=== PATIENT | female | born 1965 | race Caucasian/White ===

== ENCOUNTER 2017-10-29 09:35 | Emergency (ER) | payer BC, SELFPAY ==
[2017-10-29 09:57] VITALS: BP 135/94; PULSE 72; RESP 18; TEMP 36.4; O2SAT 97; BMI 31.8
--- NOTE | 2017-10-29 10:26 | HMH.EDUTC ---
[facility] [place] Clinical Impression: Migraine Qualifiers: Migraine type: chronic without aura Status migrainosus presence: without status migrainosus Intractability: not intractable Qualified Code(s): G43.709 - Chronic migraine without aura, not intractable, without status migrainosus Disposition: Home, Self-Care Condition on Discharge: Good Instructions: DI for Migraine Additional Instructions: Lots of fluids Go home and rest You had toradol injection in clinic. Similar to ibuprofen, motrin, aleve, naproxen so no additional for 6-8 hours. You had phenergan in clinic for nausea/vomiting. Can cause drowsiness so do not drive, care for small kids or operate machinery today. I understand this is typical but if ANY new, worsening or persistent symptoms then be sure to follow up immediately Referrals: Shannon Soto PA [Primary Care Provider] - (as needed) Time of Disposition: 11:07 Medical Decision Making Vital Signs: 10/29/17 09:57 Temperature 97.6 F Temperature Source Temporal Artery Scan Pulse Rate [Right Radial] 72 Respiratory Rate 18 Blood Pressure [Right Arm] 135/94 Blood Pressure Mean [Right Arm] 107 Blood Pressure Source [Right Arm] Automatic Cuff Blood Pressure Position [Right Arm] Sitting 02 Sat by Pulse Oximetry 97 Oxygen Delivery Method Room Air Orders (Tests/Meds): ED MEDICATIONS Discontinued Medications Generic Name Dose Route Start Last Admin Trade Name Freq PRN Reason Stop Dose Admin Ketorolac Tromethamine 60 mg 10/29/17 10:34 10/29/17 10:40 Toradol 60mg/2ml Vial IM 10/29/17 10:35 60 mg ONCE ONE Administration Promethazine HCl 25 mg 10/29/17 10:34 10/29/17 10:40 Phenergan 25mg/Ml 1ml Vial IM 10/29/17 10:35 25 mg ONCE ONE Administration Sodium Chloride 25 ml 10/29/17 10:34 Sod Chloride 0.9% 25ml Bag IV 10/29/17 10:35 ONCE ONE - John Inquiry Pt receiving controlled substance: No - Reevaluation(s) Time: 11:02 Reevaluation #1: Pain down to 5/10. pt reports she is ready to go home and rest because she typically wakes up headache free. Agrees to follow up for new, worsening or persistent symptoms [facility] UTC HPI - General Stated complaint: Migraine ORELLANA Time Seen by Provider: 10/29/17 10:26 Mode of Arrival: Family Vehicle Source of Information: Patient Limitations: No Limitations Description of Symptoms (Recalled from Triage Doc. by RN): pt states that she woke up at 0600 this am with a migraine and has taken maxalt but vomitted at 0630. pt states that the migraine is the same as usual the pain is on the top of her head with light and sound sensitiviy. HEENT Symptoms (Recalled from RN notes): Yes (migraine) Resp Symptoms (Recalled from RN notes): No Skin Symptoms (Recalled from RN notes): No MS Symptoms (Recalled from RN notes): No Functional Status (Recalled from RN notes): na - History of Present Illness Provider Complaint: Here with spouse c/o a typical migraine requesting toradol and phenergan. migrain started at 0600. Took maxalt Like I would typically do at onset but was vomiting by 0630. Reports vomiting is not atypical. Doesn't think she kept down the maxalt because no improvement. Headache currently 10/10, top of head, described as pressure, photophobia. All typical symptoms per patient. Adamant no new characteristics. Denies weakness, confusion. Reports toradol and phenergan always help. Thinks trigger is current sinusitis. Was seen at clinic yesterday. Dx sinusitis they said related to a virus or allergies . Was suggested that she start decongestants and flonase. I know that will take a few days to help . That feels no worse. No fever. - Related Data Home Medications Medication Instructions Recorded Confirmed alpha lipoic acid 200 mg capsule 200 mg PO DAILY 10/28/17 10/29/17 celecoxib 200 mg capsule 200 mg PO ONCE 10/28/17 10/29/17 cholecalciferol (vitamin D3) 1,000 1,000 unit PO ONCE 10/28/17 10/29/17 unit capsule
--- NOTE | 2017-10-29 10:34 | ED_ITS ---
[facility] [place] Impression: Migraine Qualifiers: Migraine type: chronic without aura Status migrainosus presence: without status migrainosus Intractability: not intractable Qualified Code(s): G43.709 - Chronic migraine without aura, not intractable, without status migrainosus Disposition: Home, Self-Care Condition on Discharge: Good Instructions: DI for Migraine Additional Instructions: Lots of fluids Go home and rest You had toradol injection in clinic. Similar to ibuprofen, motrin, aleve, naproxen so no additional for 6-8 hours. You had phenergan in clinic for nausea/vomiting. Can cause drowsiness so do not drive, care for small kids or operate machinery today. I understand this is typical but if ANY new, worsening or persistent symptoms then be sure to follow up immediately Referrals: Shannon Soto PA [Primary Care Provider] - (as needed) Time of Disposition: 11:07 Medical Decision Making Vital Signs: 10/29/17 09:57 Temperature 97.6 F Temperature Source Temporal Artery Scan Pulse Rate [Right Radial] 72 Respiratory Rate 18 Blood Pressure [Right Arm] 135/94 Blood Pressure Mean [Right Arm] 107 Blood Pressure Source [Right Arm] Automatic Cuff Blood Pressure Position [Right Arm] Sitting 02 Sat by Pulse Oximetry 97 Oxygen Delivery Method Room Air Orders (Tests/Meds): ED MEDICATIONS Discontinued Medications Generic Name Dose Route Start Last Admin Trade Name Freq PRN Reason Stop Dose Admin Ketorolac Tromethamine 60 mg 10/29/17 10:34 10/29/17 10:40 Toradol 60mg/2ml Vial IM 10/29/17 10:35 60 mg ONCE ONE Administration Promethazine HCl 25 mg 10/29/17 10:34 10/29/17 10:40 Phenergan 25mg/Ml 1ml Vial IM 10/29/17 10:35 25 mg ONCE ONE Administration Sodium Chloride 25 ml 10/29/17 10:34 Sod Chloride 0.9% 25ml Bag IV 10/29/17 10:35 ONCE ONE - John Inquiry Pt receiving controlled substance: No - Reevaluation(s) Time: 11:02 Reevaluation #1: Pain down to 5/10. pt reports she is ready to go home and rest because she typically wakes up headache free. Agrees to follow up for new, worsening or persistent symptoms [facility] HPI - General Stated complaint: Migraine ORELLANA Time Seen by Provider: 10/29/17 10:26 Mode of Arrival: Family Vehicle Source of Information: Patient Limitations: No Limitations Description of Symptoms (Recalled from Triage Doc. by RN): pt states that she woke up at 0600 this am with a migraine and has taken maxalt but vomitted at 0630. pt states that the migraine is the same as usual the pain is on the top of her head with light and sound sensitiviy. HEENT Symptoms (Recalled from RN notes): Yes (migraine) Resp Symptoms (Recalled from RN notes): No Skin Symptoms (Recalled from RN notes): No MS Symptoms (Recalled from RN notes): No Functional Status (Recalled from RN notes): na - History of Present Illness Provider Complaint: Here with spouse c/o a typical migraine requesting toradol and phenergan. migrain started at 0600. Took maxalt Like I would typically do at onset but was vomiting by 0630. Reports vomiting is not atypical. Doesn't think she kept down the maxalt because no improvement. Headache currently 10/10, top of head, described as pressure, photophobia. All typical symptoms per patient. Adamant no new characteristics. Denies weakness , confusion. Reports toradol and ph
[2017-10-29 11:09] VITALS: BP 145/77; PULSE 65; RESP 22; TEMP 36.6; O2SAT 99
== END 2017-10-29 11:11 | disposition home or self-care (01) ==
PROVIDERS: Emergency Provider Nurse Practitioner Family; Family Provider Family Medicine; PCP Physician Assistant
DX: G43.709 Chronic migraine without aura, not intractable, without status migrainosus (principal)
CPT/HCPCS: 96372; 99201

== ENCOUNTER 2017-12-05 12:16 | Emergency (ER) | payer BC, SELFPAY ==
--- NOTE | 2017-12-05 12:30 | XR_ITS ---
XR ankle LT 2V Ordering Physician: Lorri Garcia Patient Age: 52 years: Female HISTORY: ITS.REASON: oain when she got out of bed left ankle pain TECHNIQUE: 3 views of the left ankle COMPARISON :07/13/2017 left ankle FINDINGS . No fracture nor dislocation. The ankle mortise intact. Dome of talus intact. No significant new findings versus previous study. Bones well mineralized. IMPRESSION: Negative left ankle. No fracture.
[2017-12-05 12:40] VITALS: BP 127/92; PULSE 68; RESP 24; TEMP 36.6; O2SAT 98; BMI 32.6
--- NOTE | 2017-12-05 12:48 | HMH.EDUTC ---
[facility] – [place] Disposition Clinical Impression: Ankle pain, left Qualifiers: Chronicity: acute Qualified Code(s): M25.572 - Pain in left ankle and joints of left foot Disposition: Home, Self-Care Condition on Discharge: Good Instructions: DI for Acute Pain -- Adult Additional Instructions: Follow-up with primary care this week if no improvement Ice for 20 minutes remove and may repeat Tylenol or ibuprofen as needed for pain Symptoms worsen or do not improve return or be seen in the ER Referrals: Shannon Soto PA [Primary Care Provider] - Time of Disposition: 13:16 Medical Decision Making Vital Signs: 12/05/17 12:40 Temperature 97.9 F Temperature Source Temporal Artery Scan Pulse Rate [Brachial] 68 Respiratory Rate 24 Blood Pressure [Right Arm] 127/92 Blood Pressure Mean [Right Arm] 103 Blood Pressure Position [Right Arm] Sitting 02 Sat by Pulse Oximetry 98 Orders (Tests/Meds): ORDERS Category Date Time Status Ankle XR - Left 2 Views [XR ankle LT 2V] Stat Exams 12/05/17 12:30 Taken - John Inquiry Pt receiving controlled substance: No [facility] [place] HPI - General Chief complaint: PAIN Stated complaint: l ankle pain Time Seen by Provider: 12/05/17 12:48 Mode of Arrival: Ambulatory Source of Information: Patient Limitations: No Limitations Description of Symptoms (Recalled from Triage Doc. by RN): PAIN IN LEFT ANKLE WHEN SHE GOT UP THIS MORNING HEENT Symptoms (Recalled from RN notes): No Resp Symptoms (Recalled from RN notes): No Skin Symptoms (Recalled from RN notes): No MS Symptoms (Recalled from RN notes): Yes Functional Status (Recalled from RN notes): NA - History of Present Illness Provider Complaint: 52-year-old female presents today for left ankle pain. Patient states she woke up day went to the restroom history of neuropathy and unsure if she might have twisted or injured ankle but after getting back to bed and woke up the next day with pain in the ankle. - Related Data Home Medications Medication Instructions Recorded Confirmed alpha lipoic acid 200 mg capsule 200 mg PO DAILY 10/28/17 10/29/17 celecoxib 200 mg capsule 200 mg PO ONCE 10/28/17 10/29/17 cholecalciferol (vitamin D3) 1,000 1,000 unit PO ONCE 10/28/17 10/29/17 unit capsule conjugated estrogens 0.625 mg 0.625 mg PO ONCE 10/28/17 10/29/17 tablet escitalopram 20 mg tablet 20 mg PO ONCE 10/28/17 10/29/17 esomeprazole magnesium 40 mg 40 mg PO ONCE cap 10/28/17 10/29/17 capsule,delayed release gabapentin 600 mg tablet 600 mg PO TID 10/28/17 10/29/17 lisinopril 20 mg tablet 20 mg PO ONCE 10/28/17 10/29/17 ropinirole 0.5 mg tablet 0.5 mg PO TID 10/28/17 10/29/17 vitamin B complex tablet 1 tab PO QAM 10/28/17 10/29/17 Allergies Allergy/AdvReac Type Severity Reaction Status Date / Time Sulfa (Sulfonamide Allergy Mild I-HIVES Verified 10/29/17 10:04 Antibiotics) [SULFA (SULFONAMIDE ANTIBIOTICS)] - Worker's Comp Is this a Worker's Comp case?: No [facility] History I have reviewed the patient's past medical history: Yes Medical History: Reports:: Anxiety, Depression, Gastroesophageal Reflux Disease(GERD), Hypertension, Migraine Denies:: Diabetes Mellitus Type 2 Other Medical History: Reports: Other (Neuropathy, RLS, ) Laterality Cases: Right: Arthroscopy Shoulder, Other Other Surgeries: Yes: Hysterectomy-Partial - Social History Smoking Status: Never smoker Alcohol Intake: never Substance Use Type: denies use - Psychiatric History Expresses thoughts of harming self/others: None Suicide Plan Description: No Plan Pschychiatric History:: Reports:: Anxiety, Depression Family Hx:: Cancer, Heart Attack, Stroke ROS Obtained: Yes All systems reviewed & no additional complaints, Yes Systems reviewed as appropriate & no additional complaints - Constitutional Constitutional: Reports system reviewed and no additional complaints, except as docu, Denies chills, Denies fever(s) - Eyes Eyes: Reports syst
--- NOTE | 2017-12-05 12:51 | ED_ITS ---
[facility] – [place] Clinical Impression: Ankle pain, left Qualifiers: Chronicity: acute Qualified Code(s): M25.572 - Pain in left ankle and joints of left foot Disposition: Home, Self-Care Condition on Discharge: Good Instructions: DI for Acute Pain -- Adult Additional Instructions: Follow-up with primary care this week if no improvement Ice for 20 minutes remove and may repeat Tylenol or ibuprofen as needed for pain Symptoms worsen or do not improve return or be seen in the ER Referrals: Shannon Soto PA [Primary Care Provider] - Time of Disposition: 13:16 Medical Decision Making Vital Signs: 12/05/17 12:40 Temperature 97.9 F Temperature Source Temporal Artery Scan Pulse Rate [Brachial] 68 Respiratory Rate 24 Blood Pressure [Right Arm] 127/92 Blood Pressure Mean [Right Arm] 103 Blood Pressure Position [Right Arm] Sitting 02 Sat by Pulse Oximetry 98 Orders (Tests/Meds): ORDERS Category Date Time Status Ankle XR - Left 2 Views [XR ankle LT 2V] Stat Exams 12/05/17 12:30 Taken - John Inquiry Pt receiving controlled substance: No [facility] [place] HPI - General Chief complaint: PAIN Stated complaint: l ankle pain Time Seen by Provider: 12/05/17 12:48 Mode of Arrival: Ambulatory Source of Information: Patient Limitations: No Limitations Description of Symptoms (Recalled from Triage Doc. by RN): PAIN IN LEFT ANKLE WHEN SHE GOT UP THIS MORNING HEENT Symptoms (Recalled from RN notes): No Resp Symptoms (Recalled from RN notes): No Skin Symptoms (Recalled from RN notes): No MS Symptoms (Recalled from RN notes): Yes Functional Status (Recalled from RN notes): NA - History of Present Illness Provider Complaint: 52-year-old female presents today for left ankle pain. Patient states she woke up day went to the restroom history of neuropathy and unsure if she might have twisted or injured ankle but after getting back to bed and woke up the next day with pain in the ankle. - Related Data Home Medications Medication Instructions Recorded Confirmed alpha lipoic acid 200 mg capsule 200 mg PO DAILY 10/28/17 10/29/17 celecoxib 200 mg capsule 200 mg PO ONCE 10/28/17 10/29/17 cholecalciferol (vitamin D3) 1,000 1,000 unit PO ONCE 10/28/17 10/29/17 unit capsule conjugated estrogens 0.625 mg 0.625 mg PO ONCE 10/28/17 10/29/17 tablet escitalopram 20 mg tablet 20 mg PO ONCE 10/28/17 10/29/17 esomeprazole magnesium 40 mg 40 mg PO ONCE cap 10/28/17 10/29/17 capsule,delayed release gabapentin 600 mg tablet 600 mg PO TID 10/28/17 10/29/17 lisinopril 20 mg tablet 20 mg PO ONCE 10/28/17 10/29/17 ropinirole 0.5 mg tablet 0.5 mg PO TID 10/28/17 10/29/17 vitamin B complex tablet 1 tab PO QAM 10/28/17 10/29/17 Allergies Allergy/AdvReac Type Severity Reaction Status Date / Time Sulfa (Sulfonamide Allergy Mild I-HIVES Verified 10/29/17 10:04 Antibiotics) [SULFA (SULFONAMIDE ANTIBIOTICS)] - Worker's Comp Is this a Worker's Comp case?: No [facility] History I have reviewed the patient's past medical history: Yes Medical History: Reports:: Anxiety, Depression, Gastroesophageal Reflux Disease( GERD), Hypertension, Migraine Denies:: Diabetes Mellitus Type 2 Other Medical History: Reports: Other (Neuropathy, RLS, ) Laterality Cases:
[2017-12-05 13:23] VITALS: BP 127/92; PULSE 68; RESP 24; TEMP 36.6; O2SAT 98
== END 2017-12-05 13:24 | disposition home or self-care (01) ==
PROVIDERS: Emergency Provider Nurse Practitioner Family; Family Provider Family Medicine; PCP Physician Assistant
DX: M25.572 Pain in left ankle and joints of left foot (principal); I10 Essential (primary) hypertension; F41.8 Other specified anxiety disorders; K21.9 Gastro-esophageal reflux disease without esophagitis; Z88.2 Allergy status to sulfonamides
CPT/HCPCS: 73600; 99203

== ENCOUNTER → 2018-03-01 10:37 | Outpatient (CLI) | payer BC, SELFPAY ==
--- NOTE | 2018-03-01 10:43 | XR_ITS ---
EXAM: XR cervical spine 2V HISTORY: ITS.REASON: NECK PAIN ORDERING PHYSICIAN: KEITH Gardner PATIENT AGE: 52 years COMPARISON: None FINDINGS: There is normal alignment. No fracture or dislocation. The disc spaces are well-preserved. No lytic or blastic change. No evidence of cervical rib. IMPRESSION: Negative cervical spine
== END ==
PROVIDERS: PCP Family Medicine; Visit Provider Physician Assistant
DX: M54.2 Cervicalgia (principal)
CPT/HCPCS: 72040

== ENCOUNTER → 2018-07-24 20:59 | Outpatient (CLI) | payer BC, SELFPAY | PROVIDERS: Visit Provider Nurse Practitioner Family ==

== ENCOUNTER → 2018-10-24 13:06 | Outpatient (POV) | payer BC, SELFPAY | PROVIDERS: Visit Provider Dermatology | DX: Z00.00 Encounter for general adult medical examination without abnormal findings (principal) ==

== ENCOUNTER 2019-03-07 02:06 | Observation (INO) | payer BC, SELFPAY ==
[2019-03-07] VITALS (29 sets, daily range): BP systolic 107–170; BP diastolic 62–104; PULSE 64–88; RESP 12–20; TEMP 36.3–43; O2SAT 94–100; BMI 32.5; BMI 31.8
--- NOTE | 2019-03-07 02:12 | HMH.EDGENADL ---
ED Disposition Clinical Impression: Acute cholecystitis Disposition: Admitted as Observation Condition on Discharge: Good Time of Disposition: 03:56 - Critical Care Critical Care Time: No Attestation: On 03/07/19, the high probability of a clinically significant, sudden or life threatening deterioration of the following system(s) required my full and direct attention, intervention and personal management. The time I documented below is in addition to time spent performing reported procedures but includes the following listed in this critical care notation. Medical Decision Making - Medical Records Medical records reviewed: Yes: I reviewed the patient's medical records. - John Inquiry Pt receiving controlled substance: No John was queried for this patient: No Vital Signs: 03/07/19 02:07 03/07/19 04:41 Temperature 97.8 F 98.6 F Temperature Source Oral Pulse Rate 85 Pulse Rate [Right] 76 Respiratory Rate 20 20 Blood Pressure 140/91 H Blood Pressure [Right Arm] 170/104 H Blood Pressure Mean [Right Arm] 126 02 Sat by Pulse Oximetry 96 - Lab Data Lab results reviewed: Yes: I reviewed the patient's lab results. Lab Results 03/07/19 02:14: Sodium 143, Potassium 3.6, Chloride 106, Carbon Dioxide 28, Anion Gap 12.6, BUN 13, Creatinine 0.83, Estimated Creat Clear 122, Estimated GFR 72, Est GFR ( Amer) 87, Glucose 107 H, Calcium 9.0, Total Bilirubin 0.3, Direct Bilirubin 0.1, Indirect Bilirubin 0.2, AST 11 L, ALT 25, Alkaline Phosphatase 69, Troponin I < 0.02, Total Protein 6.8, Albumin 3.4, Amylase 38 03/07/19 02:14: Lipase 121 03/07/19 02:14: WBC 5.9, RBC 4.71, Hgb 12.8, Hct 40.7, MCV 86.4, MCH 27.2, MCHC 31.5 L, RDW 13.2, Plt Count 201, MPV 7.9, Neut % (Auto) 59.0, Lymph % (Auto) 30.8, [place] % (Auto) 6.6, Eos % (Auto) 2.9, Baso % (Auto) 0.6, Neut # (Auto) 3.5, Lymph # (Auto) 1.8, [place] # (Auto) 0.4, Eos # (Auto) 0.2, Baso # (Auto) 0.0 03/07/19 02:14: D-Dimer 285 Result diagrams: 03/07/19 02:14 03/07/19 02:14 Orders (Tests/Meds): ED MEDICATIONS Generic Name Dose Route Start Last Admin Trade Name Freq PRN Reason Stop Dose Admin Gabapentin 600 mg 03/07/19 09:00 Neurontin 600mg Tablet PO 04/06/19 08:59 TID LEATHA Hydromorphone HCl 0.5 mg 03/07/19 04:42 Dilaudid 2mg/Ml Syringe IV 04/06/19 04:41 Q3H PRN Severe Pain Ampicillin Sodium/Sulbactam 100 mls @ 200 mls/hr 03/07/19 10:15 Sodium 3 gm/ Sodium Chloride IV 03/21/19 04:14 Q6H LEATHA Protocol Sodium Chloride 1,000 mls @ 150 mls/hr 03/07/19 04:42 03/07/19 05:35 Sod Chlor 0.9% 1000ml Bag IV 04/06/19 04:41 150 mls/hr .Q6H40M LEATHA Administration Metronidazole 500 mg in 100 mls @ 100 mls/hr 03/07/19 04:45 Flagyl 500mg/100ml Ivpb IV 03/21/19 04:44 Q8H [facility] Protocol Lisinopril 20 mg 03/07/19 04:42 Zestril 20mg Tab PO 04/06/19 04:41 ONCE LEATHA Non-Formulary Medication 20 mg 03/07/19 04:42 Escitalopram Oxalate PO 04/06/19 04:41 ONCE LEATHA Non-Formulary Medication 40 mg 03/07/19 04:42 Esomeprazole Magnesium PO 04/06/19 04:41 ONCE LEATHA Non-Formulary Medication 0.625 mg 03/07/19 04:42 Estrogens, Conjugated [Premarin 0.625mg Tablet] PO 04/06/19 04:41 ONCE LEATHA Non-Formulary Medication 0.5 mg 03/07/19 09:00 Ropinirole Hcl [Requip] PO 04/06/19 08:59 TID LEATHA Ondansetron HCl 4 mg 03/07/19 04:42 Zofran 4mg/2ml Vial IV 04/06/19 04:41 Q8HP PRN Nausea Discontinued Medications Generic Name Dose Route Start Last Admin Trade Name Vijay PRN Reason Stop Dose Admin Aspirin 324 mg 03/07/19 02:14 03/07/19 02:15 Aspirin 81mg Chewable Tablet PO 03/07/19 02:15 324 mg ONCE ONE Administration Famotidine 20 mg 03/07/19 02:13 03/07/19 02:15 Pepcid 20mg/2ml Vial IV 03/07/19 02:14 20 mg ONCE ONE Administration Hydromorphone HCl 0.5 mg 03/07/19 04:27 03/07/19 04:40 Dilaudid 2mg/Ml Syringe IV 03/07/19
--- NOTE | 2019-03-07 02:20 | ED_ITS ---
ED Disposition Clinical Impression: Acute cholecystitis Disposition: Admitted as Observation Condition on Discharge: Good Time of Disposition: 03:56 - Critical Care Critical Care Time: No Attestation: On 03/07/19, the high probability of a clinically significant, sudden or life threatening deterioration of the following system(s) required my full and direct attention, intervention and personal management. The time I documented below is in addition to time spent performing reported procedures but includes the following listed in this critical care notation. Medical Decision Making - Medical Records Medical records reviewed: Yes: I reviewed the patient's medical records. - John Inquiry Pt receiving controlled substance: No John was queried for this patient: No Vital Signs: 03/07/19 02:07 03/07/19 04:41 Temperature 97.8 F 98.6 F Temperature Source Oral Pulse Rate 85 Pulse Rate [Right] 76 Respiratory Rate 20 20 Blood Pressure 140/91 H Blood Pressure [Right Arm] 170/104 H Blood Pressure Mean [Right Arm] 126 02 Sat by Pulse Oximetry 96 - Lab Data Lab results reviewed: Yes: I reviewed the patient's lab results. Lab Results 03/07/19 02:14: Sodium 143, Potassium 3.6, Chloride 106, Carbon Dioxide 28, Anion Gap 12.6, BUN 13, Creatinine 0.83, Estimated Creat Clear 122, Estimated GFR 72, Est GFR ( Amer) 87, Glucose 107 H, Calcium 9.0, Total Bilirubin 0.3, Direct Bilirubin 0.1, Indirect Bilirubin 0.2, AST 11 L, ALT 25, Alkaline Phosphatase 69, Troponin I < 0.02, Total Protein 6.8, Albumin 3.4, Amylase 38 03/07/19 02:14: Lipase 121 03/07/19 02:14: WBC 5.9, RBC 4.71, Hgb 12.8, Hct 40.7, MCV 86.4, MCH 27.2, MCHC 31.5 L, RDW 13.2, Plt Count 201, MPV 7.9, Neut % (Auto) 59.0, Lymph % (Auto) 30.8, [place] % (Auto) 6.6, Eos % (Auto) 2.9, Baso % (Auto) 0.6, Neut # (Auto) 3.5, Lymph # (Auto) 1.8, [place] # (Auto) 0.4, Eos # (Auto) 0.2, Baso # (Auto) 0.0 03/07/19 02:14: D-Dimer 285 Result diagrams: 03/07/19 02:14 03/07/19 02:14 Orders (Tests/Meds): ED MEDICATIONS Generic Name Dose Route Start Last Admin Trade Name Freq PRN Reason Stop Dose Admin Gabapentin 600 mg 03/07/19 09:00 Neurontin 600mg Tablet PO 04/06/19 08:59 TID LEATHA Hydromorphone HCl 0.5 mg 03/07/19 04:42 Dilaudid 2mg/Ml Syringe IV 04/06/19 04:41 Q3H PRN Severe Pain Ampicillin Sodium/Sulbactam 100 mls @ 200 mls/hr 03/07/19 10:15 Sodium 3 gm/ Sodium Chloride IV 03/21/19 04:14 Q6H LEATHA Protocol Sodium Chloride 1,000 mls @ 150 mls/hr 03/07/19 04:42 03/07/19 05:35 Sod Chlor 0.9% 1000ml Bag IV 04/06/19 04:41 150 mls/hr .Q6H40M LEATHA Administration Metronidazole 500 mg in 100 mls @ 100 mls/hr 03/07/19 04:45 Flagyl 500mg/100ml Ivpb IV 03/21/19 04:44 Q8H LEATHA Protocol Lisinopril 20 mg 03/07/19 04:42 Zestril 20mg Tab PO 04/06/19 04:41 ONCE LEATHA Non-Formulary Medication 20 mg 03/07/19 04:42 Escitalopram Oxalate PO 04/06/19 04:41 ONCE LEATHA Non-Formulary Medication 40 mg 03/07/19 04:42 Esomeprazole Magnesium PO 04/06/19 04:41 ONCE LEATHA No
[2019-03-07 02:21] LABS: Basophils % 0.6 % (0.1-2.0); Eosinophils # 0.2 K/mm3 (0.0-0.4); Eosinophils % 2.9 % (0.1-12.0); Hematocrit 40.7 % (37.0-47.0); Hemoglobin 12.8 g/dL (12.2-16.2); Lymphocytes # 1.8 K/mm3 (0.7-4.5); Lymphocytes % 30.8 % (10-50); Mean Corpuscular HGB Conc 31.5 g/dL (31.8-35.4); Mean Corpuscular Hemoglobin 27.2 pg (27.0-31.2); Mean Corpuscular Volume 86.4 fl (81-99); Mean Platelet Volume 7.9 fl (7.4-10.4); Monocytes # 0.4 K/mm3 (0.1-1.0); Monocytes % 6.6 % (1.7-9.3); Neutrophils # 3.5 K/mm3 (1.8-7.8); Platelet Count 201 K/mm3 (142-424); Red Blood Count 4.71 M/mm3 (4.20-5.40); Red Cell Distribution Width 13.2 % (11.5-17.5); White Blood Count 5.9 K/mm3 (4.8-10.8)
[2019-03-07 02:30] LABS: Lipase 121 u/L (73-393)
[2019-03-07 02:35] LABS: Alanine Aminotransferase 25 U/L (12-78); Albumin Level 3.4 gm/dL (3.4-5.0); Alkaline Phosphatase 69 U/L (46-116); Amylase 38 U/L (25-115); Anion Gap 12.6 mEq/L (5-15); Aspartate Amino Transferase 11 U/L (15-37); Bilirubin,Direct 0.1 mg/dL (0.0-0.2); Bilirubin,Indirect 0.2 mg/dL (0.0-0.9); Bilirubin,Total 0.3 mg/dL (0.2-1.0); Blood Urea Nitrogen 13 mg/dL (7-18); Carbon Dioxide 28 mmol/L (21.0-32.0); Chloride 106 mmol/L (98-107); Creatinine Clearance Estimated 122 mL/min (50-200); Creatinine,Serum 0.83 mg/dL (0.55-1.02); Estimated Glomerular Filt Rate 72 ml/min (>60); GFR (African American) 87 ML/MIN (>60); Glucose 107 mg/dL (74-106); Potassium 3.6 mmoL/L (3.5-5.1); Sodium 143 mmol/L (136-145); Total Protein,Serum 6.8 gm/dL (6.4-8.2); Troponin I < 0.02 ng/ml (0.00-0.06)
[2019-03-07 02:45] LABS: D-Dimer 285 ng/mL (0-400)
--- NOTE | 2019-03-07 02:46 | CT_ITS ---
CT chest w con HISTORY: Severe chest pain ITS.REASON: severe R UQ and R chest pain ORDERING PHYSICIAN: Ana Ledesma MD PATIENT AGE: 53 years COMPARISON: None TECHNIQUE: Axial images obtained following the administration of 75 mL of Optiray 350 . Sagittal, and coronal reformatted images are also generated and reviewed. All CT scans at the facility use one or more dose reduction, viz: automated exposure control, ma/kV adjustment per patient size (including targeted exams where dose is matched to indication, i.e. head), or iterative reconstruction technique. FINDINGS: No evidence of aortic aneurysm or dissection. No evidence of pulmonary embolus.. No mediastinal or hilar mass or adenopathy. There is calcified granuloma in the left upper lobe centrally. A noncalcified nodular opacity noted left upper lobe image number 17, 5-mm not readily apparent on the previous exam nonspecific. Additional 4 mm nodule left upper lobe image #24 unchanged. No acute bony anomalies. No lobar consolidation or collapse. No effusion. IMPRESSION: 1. No evidence of pulmonary embolus or aortic aneurysm or dissection. 2. Old granulomatous disease. There is a new 5 mm nodule in the left upper lobe nonspecific. Consider 6 month follow-up.
--- NOTE | 2019-03-07 02:46 | CT_ITS ---
CT abdomen pelvis w con CLINICAL INDICATION: Severe right upper quadrant pain ITS.REASON: severe R UQ and R chest pain ORDERING PHYSICIAN: Ana Ledesma MD PATIENT AGE: 53 years COMPARISON: 12/12/2015 TECHNIQUE: Axial images obtained with sagittal and coronal reformats. All CT scans at the facility use one or more dose reduction, viz: automated exposure control, ma/kV adjustment per patient size (including targeted exams where dose is matched to indication, i.e. head), or iterative reconstruction technique. PROCEDURE: Oral Contrast: None IV Contrast: 75 mL's Optiray 350 performed in conjunction with chest CT. FINDINGS: There is a 6 mm isodensity in the right hepatic lobe posteriorly and medially not significant change in the due to a small cyst. The gallbladder is distended with stranding of the pericholecystic fat suggesting inflammatory change and a small amount of pericholecystic fluid. There may be a stone in the cystic duct measuring 8 mm. Ultrasound suggested for further evaluation. Spleen, adrenal glands, and pancreas have an unremarkable appearance. There are parapelvic renal cyst on both sides. No renal calculi or ureteral calculi. Unremarkable appendix. No intestinal obstruction or free air. No evidence of diverticulitis. Post hysterectomy changes. There is a small right inguinal hernia containing fat and a small umbilical hernia containing fat. No acute bony findings. IMPRESSION: 1. Distended gallbladder with pericholecystic inflammatory changes suggestive of acute cholecystitis. Consider ultrasound for further evaluation 2. Nonacute findings as described above
--- NOTE | 2019-03-07 02:56 | PC.NURSE ---
pt to ct via wheelchair at this time. pt states that her pain is not relieved by earlier medication intervention. see mar.
--- NOTE | 2019-03-07 04:24 | PC.NURSE ---
dr ramos consulting with dr palomo at this time concerning admit
[2019-03-07 05:46] LABS: Basophils # 0.1 K/mm3 (0-0.2); Basophils % 0.9 % (0.1-2.0); Eosinophils # 0.1 K/mm3 (0.0-0.4); Eosinophils % 2.7 % (0.1-12.0); Hemoglobin 12.6 g/dL (12.2-16.2); Lymphocytes # 1.5 K/mm3 (0.7-4.5); Lymphocytes % 29.7 % (10-50); Mean Corpuscular HGB Conc 32.3 g/dL (31.8-35.4); Mean Corpuscular Hemoglobin 27.8 pg (27.0-31.2); Mean Corpuscular Volume 86.1 fl (81-99); Mean Platelet Volume 8.5 fl (7.4-10.4); Monocytes # 0.3 K/mm3 (0.1-1.0); Monocytes % 6.5 % (1.7-9.3); Neutrophils % 60.2 % (37.0-80.0); Platelet Count 177 K/mm3 (142-424); Red Blood Count 4.52 M/mm3 (4.20-5.40); Red Cell Distribution Width 13.2 % (11.5-17.5); White Blood Count 4.9 K/mm3 (4.8-10.8)
[2019-03-07 05:54] LABS: Activated Partial Thrombo Time 30.2 seconds (23.6-34.0); INR 0.96 (0.9-1.1)
[2019-03-07 05:55] LABS: Anion Gap 11.3 mEq/L (5-15); Blood Urea Nitrogen 12 mg/dL (7-18); Calcium 8.8 mg/dL (8.5-10.1); Carbon Dioxide 29 mmol/L (21.0-32.0); Chloride 106 mmol/L (98-107); Creatinine Clearance Estimated 121 mL/min (50-200); Creatinine,Serum 0.82 mg/dL (0.55-1.02); Estimated Glomerular Filt Rate 73 ml/min (>60); GFR (African American) 88 ML/MIN (>60); Glucose 105 mg/dL (74-106); Potassium 4.3 mmoL/L (3.5-5.1); Sodium 142 mmol/L (136-145)
--- NOTE | 2019-03-07 07:26 | PC.NURSE ---
Dr. Miller notified about consult at [id number].
--- NOTE | 2019-03-07 07:48 | HMH.HP ---
*Admission Date: 03/07/19 <Kylie Johnson 03/07/19 08:08> *Chief complaint: Abdominal pain <Kylie Johnson 03/07/19 08:08> *History of present illness: Ms. Early is a 53-year-old female with a history of arthritis, migraine headaches, sleep apnea, and hypertension who presented to [facility] emergency room after experiencing severe abdominal pain in the right upper quadrant and epigastrium. She states that the pain started yesterday after lunch. She ate at [employer] and had chicken tenders. The pain gradually progressed although she completed mowing her lawn. The pain radiated through to her back, into the right chest and down her right arm. She denies nausea, vomiting, diarrhea, fever, and heartburn. She spoke with her daughter who advised her to take some Rolaids which she did. This did not help. She was unable to sleep and got up and sat in chair briefly after which she decided that she needed to come to the emergency room. With evaluation in the emergency room CT of the abdomen revealed a plump gallbladder with surrounding fluid. She was then admitted for further evaluation and treatment with a surgical consult and pain management. Patient states she has been having periodic right upper quadrant discomfort over the last 2 years. She states the pain is usually brief and resolves on its own. Bowels have been moving normally. She notes no hematochezia or melena. This morning pain is better after pain medicine. She has not slept. She remains n.p.o. She continues to deny nausea. She has not voided since admission. <Kylie Johnson 03/07/19 08:20> [facility] History Medical History: Reports:: Anxiety, Depression, Gastroesophageal Reflux Disease(GERD), Hypertension, Migraine Denies:: Cancer, Diabetes Mellitus Type 1, Diabetes Mellitus Type 2, Gastrointestinal Bleed, MRSA, Renal Insufficiency, Ulcer <Johnson,Kylie 03/07/19 08:08> *Have you ever received a pneumonia vaccine?: No <ElizabethKylie 03/07/19 08:08> *Have you received a flu vaccine this season?: No <ElizabethKylei 03/07/19 08:08> Other Medical History: Reports: Arthritis, Hormone Therapy, Hypothyroidism, Thyroid Disease, Other <ElizabethKylie 03/07/19 08:08> Laterality Cases: Right: Arthroscopy Shoulder, Other <ElizabethKylie 03/07/19 08:08> Other Surgeries: Yes: Cardiac Catheterization, Hysterectomy-Partial <Johnson,Kylie 03/07/19 08:08> Amputation: No <Johnson,Kylie 03/07/19 08:08> Fractures: No <ElizabethKylie 03/07/19 08:08> - *Social History Educational Level: Completed College <Kylie Johnson 03/07/19 08:08> Smoking Status: Never smoker <Johnson,Kylei 03/07/19 08:08> Alcohol Intake: never <ElizabethKylie 03/07/19 08:08> Substance Use Type: denies use <ElizabethKylie 03/07/19 08:08> *Occupational Status:: employed <ElizabethKylie 03/07/19 08:08> Housing: house <ElizabethKylie 03/07/19 08:08> Household Members: family <ElizabethKylie 03/07/19 08:08> *Travel in the last 8 weeks: None <ElizabethKylie 03/07/19 08:08> - Psychiatric History Expresses thoughts of harming self/others: None <Kylie Johnson 03/07/19 08:08> Suicide Plan Description: No Plan <ElizabethKylie 03/07/19 08:08> Pschychiatric History:: Reports:: Anxiety, Depression <Kylie Johnson 03/07/19 08:08> Family Hx:: Cancer, Heart Attack, Stroke <Kylie Johnson 03/07/19 08:08> Review of Systems - Constitutional Reports headache(s), Denies body ache(s), Denies fever(s) <Kylie Johnson 03/07/19 08:08> - Eyes Denies change in vision <Kylie Johnson 03/07/19 08:08> - ENT Denies ear pain, Denies neck pain, Denies sore throat <Kylie Johnson 03/07/19 08:08> - *Cardiovascular Denies chest pain, Denies shortness of breath <Kylie Johnson - 03/07/19 08:08> - *Respiratory Denies chest congestion, Denies cough, Denies shortness of breath <Kylie Johnson - 03/07/19 08:08> - *Gastrointestinal Reports abdominal pain, Reports belchi
--- NOTE | 2019-03-07 07:51 | HMH.PHAVTE ---
[facility] Pharmacy VTE Monitoring - Patient Demographics Admission date: 03/06/19 Report Date: 03/07/19 Time: 07:51 Allergies/Adverse Reactions: Patient Allergies Sulfa (Sulfonamide Antibiotics) [SULFA (SULFONAMIDE ANTIBIOTICS)] Allergy (Mild, Verified 01/16/19 00:15) I-HIVES Height: 1.75 m Weight: 98.033 kg Patient Problems: Current Active Problems (Updated 03/07/19 @ 04:04 by Eleazar Faria MD) Acute cholecystitis (Acute) - VTE Risk Labs: VTE Related Lab Results Hgb 12.6 g/dL (12.2-16.2) 03/07/19 05:37 Hct 39.0 % (37.0-47.0) 03/07/19 05:37 Plt Count 177 K/mm3 (142-424) 03/07/19 05:37 PT 10.0 seconds (9.4-11.8) 03/07/19 05:37 INR 0.96 (0.9-1.1) 03/07/19 05:37 APTT 30.2 seconds (23.6-34.0) 03/07/19 05:37 BUN 12 mg/dL (7-18) 03/07/19 05:37 Creatinine 0.82 mg/dL (0.55-1.02) 03/07/19 05:37 Estimated Creat Clear 121 mL/min (50-200) 03/07/19 05:37 Was VTE Risk Assessment Performed: Yes VTE Risk Level: Low Risk Clinical Trial Participant: No - Prophylaxis VTE Prophylaxis Ordered?: Yes Types of VTE Prophylaxis: TEDS Knee High
--- NOTE | 2019-03-07 08:02 | P.HP_ITS ---
*Admission Date: 03/07/19 <Kylie Johnson - 03/07/19 08:08> *Chief complaint: Abdominal pain <Kylie Johnson 03/07/19 08:08> *History of present illness: Ms. Early is a 53-year-old female with a history of arthritis, migraine headaches, sleep apnea, and hypertension who presented to [facility] emergency room after experiencing severe abdominal pain in the right upper quadrant and epigastrium. She states that the pain started yesterday after lunch. She ate at [employer] and had chicken tenders. The pain gradually progressed although she completed mowing her lawn. The pain radiated through to her back, into the right chest and down her right arm. She denies nausea, vomiting, diarrhea, fever, and heartburn. She spoke with her daughter who advised her to take some Rolaids which she did. This did not help. She was unable to sleep and got up and sat in chair briefly after which she decided that she needed to come to the emergency room. With evaluation in the emergency room CT of the abdomen revealed a plump gallbladder with surrounding fluid. She was then admitted for further evaluation and treatment with a surgical consult and pain management. Patient states she has been having periodic right upper quadrant discomfort over the last 2 years. She states the pain is usually brief and resolves on its own. Bowels have been moving normally. She notes no hematochezia or melena. This morning pain is better after pain medicine. She has not slept. She remains n.p.o. She continues to deny nausea. She has not voided since admission. <JohnsonDannielleKylie 03/07/19 08:20> [facility] History Medical History: Reports:: Anxiety, Depression, Gastroesophageal Reflux Disease(GERD), Hypertension, Migraine Denies:: Cancer, Diabetes Mellitus Type 1, Diabetes Mellitus Type 2, Gastroi ntestinal Bleed, MRSA, Renal Insufficiency, Ulcer <ElizabethKylie 03/07/19 08:08> *Have you ever received a pneumonia vaccine?: No <ElizabethKylie 03/07/19 08:08> *Have you received a flu vaccine this season?: No <Kylie Johnson 03/07/19 08:08> Other Medical History: Reports: Arthritis, Hormone Therapy, Hypothyroidism, Thyroid Disease, Other <Kylie Johnson 06/12/19 08:08> Laterality Cases: Right: Arthroscopy Shoulder, Other <Kylie Johnson 03/07/19 08:08> Other Surgeries: Yes: Cardiac Catheterization, Hysterectomy-Partial <Kylie Johnson 03/07/19 08:08> Amputation: No <Kylie Johnson 03/07/19 08:08> Fractures: No <Kylie Johnson 03/07/19 08:08> - *Social History Educational Level: Completed College <Kylie Johnson 03/07/19 08:08> Smoking Status: Never smoker <Kylie Johnson 03/07/19 08:08> Alcohol Intake: never <Kylie Johnson 03/07/19 08:08> Substance Use Type: denies use <Kylie Johnson 03/07/19 08:08> *Occupational Status:: employed <Kylie Johnson 03/07/19 08:08> Housing: house <Kylie Johnson 03/07/19 08:08> Household Members: family <Kylie Johnson 03/07/19 08:08> *Travel in the last 8 weeks: None <Kylie Johnson 03/07/19 08:08> - Psychiatric History Expresses thoughts of harming self/others: None <Kylie Johnson 03/07/19 08:08> Suicide Plan Description: No Plan <Kylie Johnson 03/07/19 08:08> Pschychiatric History:: Reports:: Anxiety, Depression <Kylie Johnson 08:08> Family Hx:: Cancer, Heart Attack, Stroke <Kylie Johnson 03/07/19 08:08> Review of Systems - Constitutional Reports headache(s), Denies body ache(s), Denies fever(s) <Kylie Johnson 03/07/19 08:08> - Eyes Denies change in vision <Kylie Johnson 03/07/19 08:08> - ENT Denies ear pain, Denies neck pain, Denies sore throat <Kylie Johnson
--- NOTE | 2019-03-07 08:14 | US_ITS ---
US gallbladder HISTORY: ITS.REASON: cholecystitis ORDERING PHYSICIAN: Ana Ledesma MD PATIENT AGE: 53 years Comparison: 03/07/1911 FINDINGS: PANCREAS: Unremarkable. No obvious mass or abnormal fluid collection. No ductal dilatation LIVER: No focal liver lesions demonstrated. Homogeneous echogenicity. No intrahepatic biliary ductal dilatation evident RIGHT KIDNEY: Unremarkable. Normal size and echogenicity. No hydronephrosis GALLBLADDER: There are few foci of increased echogenicity without shadowing within the dependent portion of the gallbladder suggesting small nonshadowing stones or tumefactive sludge. Gallbladder wall is slightly thickened at 4 mm. No pericholecystic fluid. Common bile duct is slightly prominent at 7 mm. IMPRESSION: 1. Small nonshadowing stones versus tumefactive sludge within the gallbladder. 2. Mild gallbladder wall thickening. Common bile duct is slightly prominent at 7 mm.
--- NOTE | 2019-03-07 08:16 | HMH.GSCON ---
*Admission Date: 03/07/19 *Reason for consult:: cholecystitis *History of present illness: This is a 53yo female seen in consultation from her PCP after presenting to the ED overnight with increasing epigatric and RUQ pain. No fevers. + radiation to the back and shoulder. No jaundice. No n/v. Review of Systems - Constitutional Denies body ache(s) - Eyes Denies change in vision - ENT Denies change in voice - *Cardiovascular Denies chest pain at rest - *Respiratory Denies cough - *Gastrointestinal Reports abdominal pain, Denies nausea, Denies vomiting - *Genitourinary Denies abnormal vaginal bleeding - *Musculoskeletal Denies abnormal walking - Integumentary/Breasts Denies bleeding lesions - *Neurologic Reports headache(s), Reports tingling/numbness/burning sensations, Reports other (right upper arm,), Denies abnormal walking, Denies localized weakness - Psychiatric Denies anxiety - Endocrine Denies cold intolerance - Hematologic/Lymphatic Denies easy bleeding - Allergic/Immunologic Denies GI upset with certain foods [facility] History Medical History: Reports:: Anxiety, Depression, Gastroesophageal Reflux Disease(GERD), Hypertension, Migraine Denies:: Cancer, Diabetes Mellitus Type 1, Diabetes Mellitus Type 2, Gastrointestinal Bleed, MRSA, Renal Insufficiency, Ulcer *Have you ever received a pneumonia vaccine?: No *Have you received a flu vaccine this season?: No Other Medical History: Reports: Arthritis, Hormone Therapy, Hypothyroidism, Thyroid Disease, Other Laterality Cases: Right: Arthroscopy Shoulder, Other Other Surgeries: Yes: Cardiac Catheterization, Hysterectomy-Partial Amputation: No Fractures: No - *Social History Educational Level: Completed College Smoking Status: Never smoker Alcohol Intake: never Substance Use Type: denies use *Occupational Status:: employed Housing: house Household Members: family *Travel in the last 8 weeks: None - Psychiatric History Expresses thoughts of harming self/others: None Suicide Plan Description: No Plan Pschychiatric History:: Reports:: Anxiety, Depression Family Hx:: Cancer, Heart Attack, Stroke Meds Home Medications Medication Instructions Recorded Confirmed Type celecoxib 200 mg capsule 200 mg PO BID 10/28/17 03/07/19 History cholecalciferol (vitamin D3) 1,000 1,000 unit PO ONCE 10/28/17 03/07/19 History unit capsule conjugated estrogens 0.625 mg 0.625 mg PO DAILYP PRN 10/28/17 03/07/19 History tablet escitalopram 20 mg tablet 20 mg PO ONCE 10/28/17 03/07/19 History esomeprazole magnesium 40 mg 40 mg PO ONCE cap 10/28/17 03/07/19 History capsule,delayed release lisinopril 20 mg tablet 20 mg PO DAILY 10/28/17 03/07/19 History ropinirole 0.5 mg tablet 0.5 mg PO DAILYP PRN 10/28/17 03/07/19 History vitamin B complex tablet 1 tab PO DAILYP PRN 10/28/17 03/07/19 History Acetaminophen [Tylenol Arthritis] 650 mg PO DAILY PRN 03/07/19 03/07/19 History Allergies Allergy/AdvReac Type Severity Reaction Status Date / Time Sulfa (Sulfonamide Allergy Mild I-HIVES Verified 01/16/19 00:15 Antibiotics) [SULFA (SULFONAMIDE ANTIBIOTICS)] Exam Vital signs and Labs for Last 24 Hours: Temp Pulse Resp BP Pulse Ox 98.3 F 67 18 142/95 H 98 03/07/19 07:50 03/07/19 07:50 03/07/19 07:50 03/07/19 07:50 03/07/19 07:50 Laboratory Results - last 24 hr 03/07/19 02:14: Sodium 143, Potassium 3.6, Chloride 106, Carbon Dioxide 28, Anion Gap 12.6, BUN 13, Creatinine 0.83, Estimated Creat Clear 122, Estimated GFR 72, Est GFR ( Amer) 87, Glucose 107 H, Calcium 9.0, Total Bilirubin 0.3, Direct Bilirubin 0.1, Indirect Bilirubin 0.2, AST 11 L, ALT 25, Alkaline Phosphatase 69, Troponin I < 0.02, Total Protein 6.8, Albumin 3.4, Amylase 38 03/07/19 02:14: Lipase 121 03/07/19 02:14: WBC 5.9, RBC 4.71, Hgb 12.8, Hct 40.7, MCV 86.4, MCH 27.2, MCHC 31.5 L, RDW 13.2, Plt Count 201, MPV 7.9, Neut % (Auto) 59.0, Lymph % (Auto) 3
--- NOTE | 2019-03-07 08:19 | P.CONS_ITS ---
*Admission Date: 03/07/19 *Reason for consult:: cholecystitis *History of present illness: This is a 53yo female seen in consultation from her PCP after presenting to the ED overnight with increasing epigatric and RUQ pain. No fevers. + radiation to the back and shoulder. No jaundice. No n/v. Review of Systems - Constitutional Denies body ache(s) - Eyes Denies change in vision - ENT Denies change in voice - *Cardiovascular Denies chest pain at rest - *Respiratory Denies cough - *Gastrointestinal Reports abdominal pain, Denies nausea, Denies vomiting - *Genitourinary Denies abnormal vaginal bleeding - *Musculoskeletal Denies abnormal walking - Integumentary/Breasts Denies bleeding lesions - *Neurologic Reports headache(s), Reports tingling/numbness/burning sensations, Reports other (right upper arm,), Denies abnormal walking, Denies localized weakness - Psychiatric Denies anxiety - Endocrine Denies cold intolerance - Hematologic/Lymphatic Denies easy bleeding - Allergic/Immunologic Denies GI upset with certain foods [facility] History Medical History: Reports:: Anxiety, Depression, Gastroesophageal Reflux Disease(GERD), Hypertension, Migraine Denies:: Cancer, Diabetes Mellitus Type 1, Diabetes Mellitus Type 2, Gastrointestinal Bleed, MRSA, Renal Insufficiency, Ulcer *Have you ever received a pneumonia vaccine?: No *Have you received a flu vaccine this season?: No Other Medical History: Reports: Arthritis, Hormone Therapy, Hypothyroidism, Thyroid Disease, Other Laterality Cases: Right: Arthroscopy Shoulder, Other Other Surgeries: Yes: Cardiac Catheterization, Hysterectomy-Partial Amputation: No Fractures: No - *Social History Educational Level: Completed College Smoking Status: Never smoker Alcohol Intake: never Substance Use Type: denies use *Occupational Status:: employed Housing: house Household Members: family *Travel in the last 8 weeks: None - Psychiatric History Expresses thoughts of harming self/others: None Suicide Plan Description: No Plan Pschychiatric History:: Reports:: Anxiety, Depression Family Hx:: Cancer, Heart Attack, Stroke Meds Home Medications Medication Instructions Recorded Confirmed Type celecoxib 200 mg capsule 200 mg PO BID 10/28/17 03/07/19 History cholecalciferol (vitamin D3) 1,000 1,000 unit PO ONCE 10/28/17 03/07/19 History unit capsule conjugated estrogens 0.625 mg 0.625 mg PO DAILYP PRN 10/28/17 03/07/19 History tablet escitalopram 20 mg tablet 20 mg PO ONCE 10/28/17 03/07/19 History esomeprazole magnesium 40 mg 40 mg PO ONCE cap 10/28/17 03/07/19 History capsule,delayed release lisinopril 20 mg tablet 20 mg PO DAILY 10/28/17 03/07/19 History ropinirole 0.5 mg tablet 0.5 mg PO DAILYP PRN 10/28/17 03/07/19 History vitamin B complex tablet 1 tab PO DAILYP PRN 10/28/17 03/07/19 History Acetaminophen [Tylenol Arthritis] 650 mg PO DAILY PRN 03/07/19 03/07/19 History Allergies Allergy/AdvReac Type Severity Reaction Status Date / Time Sulfa (Sulfonamide Allergy Mild I-HIVES Verified 01/16/19 00:15 Antibiotics) [SULFA (SULFONAMIDE ANTIBIOTICS)] Exam Vital signs and Labs for Last 24 Hours: Temp Pulse Resp BP Pulse Ox
--- NOTE | 2019-03-07 09:18 | HMH.PHAINT ---
MED REC--PATIENT CONSULTED FOR HOME MEDICATIONS. PATIENT INDICATED SHE TAKES ALL MEDICATIONS AT BEDTIME. THIS INCLUDES SYNTHROID AT BEDTIME.
--- NOTE | 2019-03-07 15:09 | P.OP_ITS ---
Date of procedure: 03/07/19 Pre-op Diagnosis:: Acute calculus cholecystitis Post-op Diagnosis:: Same Procedure performed:: Laparoscopic cholecystectomy Surgeon:: Hermilo Miller MD [employer]:: Lv Carrasco Anesthesia: GETTobi Estimated blood loss (mL): 25 Operative findings:: Small stones within gallbladder lumen Moderate gallbladder distention Acute inflammatory response of gallbladder wall/serosa Significant adhesions between gallbladder and omentum Significant adhesions between gallbladder and colon Operative note:: After informed consent was obtained, the patient was taken to the operating room and placed in the supine position. General anesthesia was induced and the abdomen was prepped and draped in a sterile fashion. After infiltration with local anesthetic an infraumbilical incision was made. A Veress needle was placed in position. The abdomen was insufflated. A 5 mm optical trocar was placed in position. Under direct visualization, a 12 mm trocar was placed in the subxiphoid position and 2 additional 5 mm trocars were placed in the right upper quadrant. The gallbladder was elevated up and over the liver margin. Significant inflammatory response noted. Moderate distention of gallbladder noted. The gallbladder was very densely adhered to the omentum and to the colon. The tissue around the cystic duct was carefully dissected. 3 clips were placed proximally and the duct was transected with harmonic lisa. The tissue and the cystic artery was also dissected free. A clip was placed proximally in the artery was transected with harmonic lisa distally. Harmonic lisa were then utilized to dissect the gallbladder away from the liver margin. The gallbladder was placed in a retrieval bag and removed through the subxiphoid trocar site. The right upper quadrant was thoroughly irrigated. No active bleeding or bile leak was noted. Fascia at the subxiphoid trocar site was reapproximated utilizing 0 Ethibond. The remaining trocars were removed. All wounds were irrigated and skin was closed with 4-0 Monocryl in a subcuticular fashion. Steri-Strips were applied. The patient's anesthetic agents were reversed and extubation was completed prior to transfer to recovery in stable condition. Condition: stable Disposition: PACU Specimens:: Gallbladder and contents Complications:: No immediate
--- NOTE | 2019-03-07 15:19 | HMH.ANESCL ---
[facility] Anesthesia Checklist - Patient Identification Patient Identification: Arm Band - Structural Data Admitted From: Home Planned Operative Procedure/s: lap emerald Consent for Planned Operative Procedure(s) Verified: Yes Verified Documents: Surgical Consent, History and Physical - NPO Status Verified Time NPO: 00:00 - Additional verifications Anesthesia Reactions: No - Airway Assessment C-Spine Mobility Assessed: Yes (mp2) TMJ Mobility Assessed: Yes Dentition: Good Dentition - Neurological Assessment Level of Consciousness: Awake, Alert - Anesthesia Plan Anesthesia Risk discussed: Yes Anesthesia Plan: Verified ASA Class: II Anesthesia Type: General [facility] History I have reviewed the patient's past medical history: Yes Medical History: Reports:: Anxiety, Depression, Gastroesophageal Reflux Disease(GERD), Hypertension, Migraine Denies:: Cancer, Diabetes Mellitus Type 1, Diabetes Mellitus Type 2, Gastrointestinal Bleed, MRSA, Renal Insufficiency, Ulcer *Have you ever received a pneumonia vaccine?: No *Have you received a flu vaccine this season?: No Other Medical History: Reports: Arthritis, Hormone Therapy, Hypothyroidism, Thyroid Disease, Other Laterality Cases: Right: Arthroscopy Shoulder, Other Other Surgeries: Yes: Cardiac Catheterization, Hysterectomy-Partial Amputation: No Fractures: No - *Social History Educational Level: Completed College Smoking Status: Never smoker Alcohol Intake: never Substance Use Type: denies use *Occupational Status:: employed Housing: house Household Members: family *Travel in the last 8 weeks: None - Psychiatric History Expresses thoughts of harming self/others: None Suicide Plan Description: No Plan Pschychiatric History:: Reports:: Anxiety, Depression Family Hx:: Cancer, Heart Attack, Stroke
--- NOTE | 2019-03-07 15:20 | HMH.ANESI ---
[facility] Anesthesia Record Part I Intake, IV Amount: 1,500 Estimated blood loss (mL): 10 Urine output (mL): 0 Blood Pressure: 125/71 SaO2: 96 Pulse Rate: 64 Respiratory Rate: 16 Temperature: 97.6 F Patient is:: Drowsy, Stable Stable to PACU at:: 15:10
--- NOTE | 2019-03-07 15:21 | P.PN_ITS ---
[facility] Anesthesia Record Part II Discharge Time: 15:40 Destination: 2nd floor PACU nurse assessment reviewed?: Yes Patient Condition:: Good Anesthesia Complications:: None Swallowing reflex intact?: Yes Cyanosis?: No
--- NOTE | 2019-03-07 16:26 | SUR.PHASEI ---
Pt came to OR with TEDs on and IPCs were then applied over the TEDs.
--- NOTE | 2019-03-07 18:22 | PC.NURSE ---
Patient went down for surgery today at around 1300 and returned to room at 1600. Patient has tolerated well since surgery, rates pain a 5 at this time. Patient was nauseated, zofran was given and was effective. Patient has eaten ice chips and jello since she returned from surgery. 4 dressings are c/d/i. Family is at bedside, call light within reach, will continue to monitor.
--- NOTE | 2019-03-07 22:04 | PC.NURSE ---
S/W Dr. Francis at this time. Pt c/o head-ache and no orders for pain medicine other than Dilaudid, requesting tylenol PO. New order for Tylenol 650mg PO q8-PRN. Also alerted MD that pt did not void until a 15min prior (5hr & 45min post-op). Pt's output was 350ml. Will continue to monitor pt.
[2019-03-08] VITALS: BP 106/64; PULSE 80; RESP 18; TEMP 36.6; O2SAT 92
[2019-03-08 04:00] VITALS: BP 121/77; PULSE 81; RESP 18; TEMP 37; O2SAT 95; BMI 33.0
--- NOTE | 2019-03-08 05:30 | PC.NURSE ---
Addendum entered by Lis Bajwa RN 03/08/19 05:46: Correction: output is 875ml so far this shift. Original Note: Pt is A&Ox4 and has ambulated to the bathroom & in the hallway this shift & tolerates well. Pt has c/o ABD pain 1x and head-ache 2x, medicated per NOV. Pt has denied any nausea this shift and tolerated liquids well, pt refused any snacks available at this time. ABD is soft and tender with palpation, active BS noted all 4 quads, and 4 lap site present on ABD that are al C/D/I. Trace edema to bilat ankles, pt requested to have TEDS removed & refused IPCS at this time. Lungs CTA, sat's 92-95% on room air. Pt teaching with splinting incision sites/ABD with coughing & activity, SE with medications, and s/s of infection. Pt has had an output of 825ml this shift. VSS, call light within reach, will continue to monitor.
--- NOTE | 2019-03-08 06:45 | PC.NURSE ---
Dr. Miller @ pt's bedside at this time
--- NOTE | 2019-03-08 06:50 | HMH.GSPN ---
Subjective Patient reports: feels better Exam Vital signs and Labs for Last 24 Hours: Temp Pulse Resp BP Pulse Ox 98.6 F 81 18 121/77 95 03/08/19 04:00 03/08/19 04:00 03/08/19 04:00 03/08/19 04:00 03/08/19 04:00 I & O for Last 24 hours: Intake & Output 03/05/19 03/06/19 03/07/19 03/08/19 11:59 11:59 11:59 11:59 Intake Total 100 / 100 3623 / 3623 Output Total 875 / 875 Balance 100 / 100 2748 / 2748 Weight 216 lb 2 oz 223 lb 8 oz - Constitutional no acute distress - *Routine Respiratory Exam Absent: respiratory distress - *Routine Abdominal Exam Present: soft Comments: Dressings intact. Dressings dry. No erythema. Progress Note: A&P (1) Acute cholecystitis Status: Acute Assessment and plan: Overall, doing fairly well status post laparoscopic cholecystectomy. Follow-up morning labs Possible discharge home later today with close outpatient follow-up (as per primary provider) Current Visit: Yes
[2019-03-08 06:53] LABS: Basophils % 0.1 % (0.1-2.0); Eosinophils % 0.2 % (0.1-12.0); Hematocrit 36.3 % (37.0-47.0); Hemoglobin 11.8 g/dL (12.2-16.2); Lymphocytes # 0.7 K/mm3 (0.7-4.5); Lymphocytes % 8.4 % (10-50); Mean Corpuscular HGB Conc 32.6 g/dL (31.8-35.4); Mean Corpuscular Hemoglobin 28.4 pg (27.0-31.2); Mean Corpuscular Volume 87.4 fl (81-99); Mean Platelet Volume 8.4 fl (7.4-10.4); Monocytes # 0.5 K/mm3 (0.1-1.0); Monocytes % 5.7 % (1.7-9.3); Neutrophils # 6.9 K/mm3 (1.8-7.8); Neutrophils % 85.7 % (37.0-80.0); Platelet Count 188 K/mm3 (142-424); Red Blood Count 4.15 M/mm3 (4.20-5.40); Red Cell Distribution Width 13.3 % (11.5-17.5)
[2019-03-08 06:55] LABS: MANUAL DIFFERENTIAL MANUAL DIFFERENTIAL (MANUAL DIFF)
--- NOTE | 2019-03-08 07:15 | PC.NURSE ---
REPORT GIVEN TO Tobi WEBB
[2019-03-08 07:19] LABS: Alanine Aminotransferase 36 U/L (12-78); Albumin Level 2.8 gm/dL (3.4-5.0); Albumin/Globulin Ratio 0.9 (1.1-1.8); Alkaline Phosphatase 60 U/L (46-116); Anion Gap 10.8 mEq/L (5-15); Aspartate Amino Transferase 24 U/L (15-37); Bilirubin,Total 0.4 mg/dL (0.2-1.0); Blood Urea Nitrogen 10 mg/dL (7-18); Carbon Dioxide 27 mmol/L (21.0-32.0); Chloride 109 mmol/L (98-107); Creatinine Clearance Estimated 123 mL/min (50-200); Creatinine,Serum 0.84 mg/dL (0.55-1.02); Estimated Glomerular Filt Rate 71 ml/min (>60); GFR (African American) 85 ML/MIN (>60); Glucose 119 mg/dL (74-106); Potassium 4.8 mmoL/L (3.5-5.1); Sodium 142 mmol/L (136-145); Total Protein,Serum 5.8 gm/dL (6.4-8.2)
[2019-03-08 07:27] VITALS: BP 122/78; PULSE 82; RESP 17; TEMP 36.6; O2SAT 98
[2019-03-08 07:39] VITALS: O2SAT 98
--- NOTE | 2019-03-08 08:04 | HMH.ACPN2 ---
<Shannon Soto - Last Filed: 03/08/19 08:04> Internal Medicine - PN: Subj *Date: 03/08/19 *Time: 08:04 Interval history: Patient had a laparoscopic cholecystectomy yesterday and is doing well postop. She states she was able to eat a few bites of eggs this morning. She has not passed gas or had a bowel movement. Her main complaint today is of a headache. She was able to rest last night. Exam Vital signs and Labs for Last 24 Hours: Temp Pulse Resp BP Pulse Ox 97.9 F 82 17 122/78 98 03/08/19 07:27 03/08/19 07:27 03/08/19 07:27 03/08/19 07:27 03/08/19 07:39 Laboratory Results - last 24 hr 03/08/19 06:14: WBC 8.0 D, RBC 4.15 L, Hgb 11.8 L, Hct 36.3 L, MCV 87.4, MCH 28.4, MCHC 32.6, RDW 13.3, Plt Count 188, MPV 8.4, Neut % (Auto) 85.7 H, Lymph % (Auto) 8.4 L, [place] % (Auto) 5.7, Eos % (Auto) 0.2, Baso % (Auto) 0.1, Neut # (Auto) 6.9, Lymph # (Auto) 0.7, [place] # (Auto) 0.5, Eos # (Auto) 0.0, Baso # (Auto) 0.0 03/08/19 06:14: Sodium 142, Potassium 4.8, Chloride 109 H, Carbon Dioxide 27, Anion Gap 10.8, BUN 10, Creatinine 0.84, Estimated Creat Clear 123, Estimated GFR 71, Est GFR ( Amer) 85, Glucose 119 H, Calcium 8.0 L, Total Bilirubin 0.4, AST 24 D, ALT 36 D, Alkaline Phosphatase 60, Total Protein 5.8 L, Albumin 2.8 L D, Globulin 3.0, Albumin/Globulin Ratio 0.9 L I & O for Last 24 hours: Intake & Output 03/05/19 03/06/19 03/07/19 03/08/19 11:59 11:59 11:59 11:59 Intake Total 100 / 100 3983 / 3983 Output Total 875 / 875 Balance 100 / 100 3108 / 3108 Weight 216 lb 2 oz 223 lb 8 oz - Constitutional no acute distress - *Routine Respiratory Exam Present: CTA bilaterally - *Routine Cardiovascular Exam Present: RRR - *Routine Abdominal Exam Present: soft, normoactive bowel sounds, tenderness (around surgical sites) - *Routine Extremities Exam Absent: cyanosis, clubbing, edema Assessment and Plan (1) Acute cholecystitis Status: Acute Category: Medical Code(s): K81.0 - Acute cholecystitis (2) Status post laparoscopic cholecystectomy Status: Acute Category: Surgical Code(s): Z90.49 - Acquired absence of other specified parts of digestive tract (3) History of migraine headaches Status: Chronic Category: Medical Code(s): Z86.69 - Personal history of other diseases of the nervous system and sense organs - Assessment and plan all Dx Assessment and Plan for all problems:: Patient received some Dilaudid for headache and it is slightly better at this time. Her labs look good this morning. May be able to discharge later on today. <Jose Giraldo - Last Filed: 03/09/19 08:35> Internal Medicine - PN: Subj *Date: 03/09/19 *Time: 08:34 Exam Vital signs and Labs for Last 24 Hours: Temp Pulse Resp BP Pulse Ox 98.2 F 83 17 111/70 95 03/08/19 10:54 03/08/19 10:54 03/08/19 10:54 03/08/19 10:54 03/08/19 10:54 Laboratory Results - last 24 hr 03/08/19 06:14: Total Counted 100, Neutrophils % (Manual) 90 H, Band Neutrophils % 2.0, Lymphocytes % (Manual) 4 L, Monocytes % (Manual) 4, Platelet Estimate Normal I & O for Last 24 hours: Intake & Output 03/06/19 03/07/19 03/08/19 03/09/19 11:59 11:59 11:59 11:59 Intake Total 100 / 100 4083 / 4083 360 / 360 Output Total 875 / 875 Balance 100 / 100 3208 / 3208 360 / 360 Weight 216 lb 2 oz 223 lb 8 oz Assessment and Plan (1) Acute cholecystitis Status: Acute Category: Medical Code(s): K81.0 - Acute cholecystitis (2) Status post laparoscopic cholecystectomy Status: Acute Category: Surgical Code(s): Z90.49 - Acquired absence of other specified parts of digestive tract (3) History of migraine headaches Status: Chronic Category: Medical Code(s): Z86.69 - Personal history of other diseases of the nervous system and sense organs - Assessment and plan all Dx Assessment and Plan for all problems:: Patient seen and examined this AM. Will give dose of
--- NOTE | 2019-03-08 08:09 | P.PN_ITS ---
<Shannon Soto - Last Filed: 03/08/19 08:04> Internal Medicine - PN: Subj *Date: 03/08/19 *Time: 08:04 Interval history: Patient had a laparoscopic cholecystectomy yesterday and is doing well postop. She states she was able to eat a few bites of eggs this morning. She has not passed gas or had a bowel movement. Her main complaint today is of a headache. She was able to rest last night. Exam Vital signs and Labs for Last 24 Hours: Temp Pulse Resp BP Pulse Ox 97.9 F 82 17 122/78 98 03/08/19 07:27 03/08/19 07:27 03/08/19 07:27 03/08/19 07:27 03/08/19 07:39 Laboratory Results - last 24 hr 03/08/19 06:14: WBC 8.0 D, RBC 4.15 L, Hgb 11.8 L, Hct 36.3 L, MCV 87.4, MCH 28.4, MCHC 32.6, RDW 13.3, Plt Count 188, MPV 8.4, Neut % (Auto) 85.7 H, Lymph % (Auto) 8.4 L, [place] % (Auto) 5.7, Eos % (Auto) 0.2, Baso % (Auto) 0.1, Neut # (Auto) 6.9, Lymph # (Auto) 0.7, [place] # (Auto) 0.5, Eos # (Auto) 0.0, Baso # (Auto) 0.0 03/08/19 06:14: Sodium 142, Potassium 4.8, Chloride 109 H, Carbon Dioxide 27, An ion Gap 10.8, BUN 10, Creatinine 0.84, Estimated Creat Clear 123, Estimated GFR 71, Est GFR ( Amer) 85, Glucose 119 H, Calcium 8.0 L, Total Bilirubin 0.4, AST 24 D, ALT 36 D, Alkaline Phosphatase 60, Total Protein 5.8 L, Albumin 2.8 L D, Globulin 3.0, Albumin/Globulin Ratio 0.9 L I & O for Last 24 hours: Intake & Output 03/05/19 03/06/19 03/07/19 03/08/19 11:59 11:59 11:59 11:59 Intake Total 100 / 100 3983 / 3983 Output Total 875 / 875 Balance 100 / 100 3108 / 3108 Weight 216 lb 2 oz 223 lb 8 oz - Constitutional no acute distress - *Routine Respiratory Exam Present: CTA bilaterally - *Routine Cardiovascular Exam Present: RRR - *Routine Abdominal Exam Present: soft, normoactive bowel sounds, tenderness (around surgical sites) - *Routine Extremities Exam Absent: cyanosis, clubbing, edema Assessment and Plan (1) Acute cholecystitis Status: Acute Category: Medical Code(s): K81.0 - Acute cholecystitis (2) Status post laparoscopic cholecystectomy Status: Acute Category: Surgical Code(s): Z90.49 - Acquired absence of other specified parts of digestive tract (3) History of migraine headaches Status: Chronic Category: Medical Code(s): Z86.69 - Personal history of other diseases of the nervous system and sense organs - Assessment and plan all Dx Assessment and Plan for all problems:: Patient received some Dilaudid for headache and it is slightly better at this time. Her labs look good this morning. May be able to discharge later on today. <Jose Giraldo - Last Filed: 03/09/19 08:35> Internal Medicine - PN: Subj *Date: 03/09/19 *Time: 08:34 Exam Vital signs and Labs for Last 24 Hours: Temp Pulse Resp BP Pulse Ox 98.2 F 83 17 111/70 95 03/08/19 10:54 03/08/19 10:54 03/08/19 10:54 03/08/19 10:54 03/08/19 10:54 Laboratory Results - last 24 hr 03/08/19 06:14: Total Counted 100, Neutrophils % (Manual) 90 H, Band Neutrophils % 2.0, Lymphocytes % (Manual) 4 L, Monocytes % (Manual) 4, Platelet Estimate Normal I & O for Last 24 hours: Intake & Output 03/06/19 03/07/19 03/08/19 03/09/19 11:59 11
[2019-03-08 10:54] VITALS: BP 111/70; PULSE 83; RESP 17; TEMP 36.8; O2SAT 95
[2019-03-08 13:38] LABS: Lymphocytes % 4 % (10-50); Monocytes % 4 % (2-9); Neutrophils % 90 % (42-76); Total Cells Counted 100
[2019-03-08 13:39] LABS: Platelet Estimate Normal
--- NOTE | 2019-03-08 15:10 | HMH.DCSUM ---
General - General Admission date:: 03/07/19 <Jose Giraldo - 03/11/19 22:38> 03/07/19 <Shannon Soto - 03/08/19 15:30> Discharge date: 03/08/19 <Shannon Soto - 03/08/19 15:30> HPI HPI: Ms. Early is a 53-year-old female with a history of arthritis, migraine headaches, sleep apnea, and hypertension who presented to [facility] emergency room after experiencing severe abdominal pain in the right upper quadrant and epigastrium. She states that the pain started after lunch. She ate at [employer] and had chicken tenders. The pain gradually progressed although she completed mowing her lawn. The pain radiated through to her back, into the right chest and down her right arm. She denies nausea, vomiting, diarrhea, fever, and heartburn. She spoke with her daughter who advised her to take some Rolaids which she did. This did not help. She was unable to sleep and got up and sat in chair briefly after which she decided that she needed to come to the emergency room. With evaluation in the emergency room, CT of the abdomen revealed a plump gallbladder with surrounding fluid. She was then admitted for further evaluation and treatment with a surgical consult and pain management. Patient states she has been having periodic right upper quadrant discomfort over the last 2 years. She states the pain is usually brief and resolves on its own. <Shannon Soto - 03/08/19 15:30> Hospital Course Hospital Course: The patient's abdominal/pelvic CT showed a distended gallbladder with pericholecystic inflammatory changes suggestive of acute cholecystitis. She had a chest CT showing no evidence of PE. There was a new 5 mm nodule on the left upper lobe and radiology recommended a six-month follow-up. Surgery was consulted and she was seen by Dr. Miller. A right upper quadrant ultrasound was ordered. It showed small nonshadowing stones versus tumefactive sludge within the gallbladder along with mild gallbladder wall thickening. The patient was started on IV antibiotics and Dr. Miller performed a laparoscopic cholecystectomy. The patient tolerated the procedure well and was able to tolerate some food. Postop labs were stable. She did develop a headache and was given Dilaudid with slight improvement. She was stable to be discharged home and will follow-up on Tuesday with Dr. Giraldo. <Shannon Soto - 03/08/19 15:50> Objective Vital signs: Temp Pulse Resp BP Pulse Ox 98.2 F 83 17 111/70 95 03/08/19 10:54 03/08/19 10:54 03/08/19 10:54 03/08/19 10:54 03/08/19 10:54 <Jose Giraldo - 03/11/19 22:38> Temp Pulse Resp BP Pulse Ox 98.2 F 83 17 111/70 95 03/08/19 10:54 03/08/19 10:54 03/08/19 10:54 03/08/19 10:54 03/08/19 10:54 <Shannon Soto - 03/08/19 15:30> Narrative: - Constitutional no acute distress - *Routine Respiratory Exam Present: CTA bilaterally - *Routine Cardiovascular Exam Present: RRR - *Routine Abdominal Exam Present: soft, normoactive bowel sounds, tenderness (around surgical sites) - *Routine Extremities Exam Absent: cyanosis, clubbing, edema <Shannon Soto - 03/08/19 15:30> Results Labs on day of discharge: Labs from last 24 hours 03/08/19 03/08/19 06:14 06:14 WBC 8.0 D RBC 4.15 L Hgb 11.8 L Hct 36.3 L MCV 87.4 MCH 28.4 MCHC 32.6 RDW 13.3 Plt Count 188 MPV 8.4 Neut % (Auto) 85.7 H Lymph % (Auto) 8.4 L [place] % (Auto) 5.7 Eos % (Auto) 0.2 Baso % (Auto) 0.1 Neut # (Auto) 6.9 Lymph # (Auto) 0.7 [place] # (Auto) 0.5 Eos # (Auto) 0.0 Baso # (Auto) 0.0 Total Counted 100 Neutrophils % (Manual) 90 H Band Neutrophils % 2.0 Lymphocytes % (Manual) 4 L Monocytes % (Manual) 4 Platelet Estimate Normal Sodium 142 Potassium 4.8 Chloride 109 H Carbon Dioxide 27 Anion Gap 10.8 BUN 10 Creatinine 0.84 Estimated Creat Clear 123 Estimated GFR 71 Est
--- NOTE | 2019-03-08 15:30 | P.DS_ITS ---
General - General Admission date:: 03/07/19 <Jose Giraldo - 03/11/19 22:38> 03/07/19 <Shannon Soto - 03/08/19 15:30> Discharge date: 03/08/19 <BrittanyShannon - 03/08/19 15:30> HPI HPI: Ms. Early is a 53-year-old female with a history of arthritis, migraine headaches, sleep apnea, and hypertension who presented to [facility] emergency room after experiencing severe abdominal pain in the right upper quadrant and epigastrium. She states that the pain started after lunch. She ate at [employer] and had chicken tenders. The pain gradually progressed although she completed mowing her lawn. The pain radiated through to her back, into the right chest and down her right arm. She denies nausea, vomiting, diarrhea, fever, and heartburn. She spoke with her daughter who advised her to take some Rolaids which she did. This did not help. She was unable to sleep and got up and sat in chair briefly after which she decided that she needed to come to the emergency room. With evaluation in the emergency room, CT of the abdomen revealed a plump gallbladder with surrounding fluid. She was then admitted for further evaluation and treatment with a surgical consult and pain management. Patient states she has been having periodic right upper quadrant discomfort over the last 2 years. She states the pain is usually brief and resolves on its own. <Shannon Soto - 03/08/19 15:30> Hospital Course Hospital Course: The patient's abdominal/pelvic CT showed a distended gallbladder with pericholecystic inflammatory changes suggestive of acute cholecystitis. She had a chest CT showing no evidence of PE. There was a new 5 mm nodule on the left upper lobe and radiology recommended a six-month follow-up. Surgery was consulted and she was seen by Dr. Miller. A right upper quadrant ultrasound was ordered. It showed small nonshadowing stones versus tumefactive sludge within t he gallbladder along with mild gallbladder wall thickening. The patient was started on IV antibiotics and Dr. Miller performed a laparoscopic cholecystectomy. The patient tolerated the procedure well and was able to tolerate some food. Postop labs were stable. She did develop a headache and was given Dilaudid with slight improvement. She was stable to be discharged home and will follow-up on Tuesday with Dr. Giraldo. <Shannon Soto - 03/08/19 15:50> Objective Vital signs: Temp Pulse Resp BP Pulse Ox 98.2 F 83 17 111/70 95 03/08/19 10:54 03/08/19 10:54 03/08/19 10:54 03/08/19 10:54 03/08/19 10:54 <Jose Giraldo - 03/11/19 22:38> Temp Pulse Resp BP Pulse Ox 98.2 F 83 17 111/70 95 03/08/19 10:54 03/08/19 10:54 03/08/19 10:54 03/08/19 10:54 03/08/19 10:54 <Shannon Soto - 03/08/19 15:30> Narrative: - Constitutional no acute distress - *Routine Respiratory Exam Present: CTA bilaterally - *Routine Cardiovascular Exam Present: RRR - *Routine Abdominal Exam Present: soft, normoactive bowel sounds, tenderness (around surgical sites) - *Routine Extremities Exam Absent: cyanosis, clubbing, edema <Shannon Soto - 03/08/19 15:30> Results Labs on day of discharge: Labs from last 24 hours 03/08/19 03/08/19 06:14 06:14 WBC 8.0 D RBC 4.15 L Hgb 11.8 L Hct 36.3 L MCV 87.4
== END 2019-03-08 14:02 | disposition home or self-care (01) ==
LOC: ER 04:04 → 2ND 04:32
PROVIDERS: Surgery; Admitting Provider Family Medicine; Emergency Provider Emergency Medicine; PCP Family Medicine; Visit Provider Family Medicine
PROC: 0FT44ZZ Resection of Gallbladder, Percutaneous Endoscopic Approach (ICD-10-PCS; CPT 47562; principal; 2019-03-07 13:30)
DX: K80.00 Calculus of gallbladder with acute cholecystitis without obstruction (principal); K81.0 Acute cholecystitis; K82.8 Other specified diseases of gallbladder; I10 Essential (primary) hypertension; E03.9 Hypothyroidism, unspecified; Z88.2 Allergy status to sulfonamides; Z79.890 Hormone replacement therapy; Z79.899 Other long term (current) drug therapy
CPT/HCPCS: 47562; 36415; 71260; 74177; 76705; 80048; 80053; 80076; 82150; 83690; 84484; 85007; 85025; 85378; 85610; 85730; 93005; 96365; 96367; 96374; 96375; 99284; G0378; J1335; J2405; J2710; Q9967

== ENCOUNTER → 2019-03-14 13:24 | Outpatient (CLI) | payer BC, SELFPAY ==
[2019-03-14 14:58] LABS: Amylase 36 U/L (25-115); Lipase 105 u/L (73-393)
== END ==
PROVIDERS: Visit Provider Surgery
DX: K85.90 Acute pancreatitis without necrosis or infection, unspecified (principal)
CPT/HCPCS: 36415; 82150; 83690

== ENCOUNTER → 2019-11-28 09:16 | Outpatient (CLI) | payer BC, SELFPAY ==
--- NOTE | 2019-11-28 09:20 | MM_ITS ---
PROCEDURE: MM DIG SCREENING MAMM BI W/CAD CLINICAL INDICATION: SCREENING There is a history of breast cancer patient's mother diagnosed after menopause. There has been a previous cyst aspiration right breast. COMPARISON: DIGITAL MAMM-SCREEN BILATE from 02/01/2012 DMSB DIG MAMM-SCREEN ALIZA from 04/13/2013 DMSB DIG MAMM-SCREEN ALIZA from 04/02/2016 TECHNIQUE: Standard CC and MLO images and 3D Tomosynthesis was obtained. R2 CAD reviewed. FINDINGS: Mild scattered fibroglandular densities are seen throughout both breast. Dom images reveal a possible developing asymmetric density approximately 4 cm deep to the nipple left breast. This is best seen on the MLO Rasheed views, appearing somewhat less worrisome on the CC Rasheed views. However I would recommend the patient return for spot compression views and ultrasound for additional evaluation. There is no suspicious microcalcifications in either breast. IMPRESSION: Fibrofatty parenchyma with possible developing asymmetric density left breast BI-RAD Category: 0 Need Additional Imaging Evaluation FOLLOW-UP: IMM Immediate Follow-up Recommended (A letter has been sent to the patient regarding results of the study.) Dictated by: Dr. Gerard Godwin MD 11/29/2019 10:[address] Gerard Godwin MD in [place] 11/29/2019 10:51
== END ==
PROVIDERS: PCP Psychiatry & Neurology Sleep Medicine; Visit Provider Family Medicine
DX: Z12.31 Encounter for screening mammogram for malignant neoplasm of breast (principal)
CPT/HCPCS: 77063; 77067

== ENCOUNTER → 2019-12-11 14:33 | Outpatient (CLI) | payer BC, SELFPAY ==
--- NOTE | 2019-12-11 14:37 | US_ITS ---
PROCEDURE: MM DIG MAMM DX UNILAT LT CAD Digital Breast Tomosynthesis Included CLINICAL INDICATION: ABNORMAL MAMM Follow-up asymmetric density COMPARISON: DMSB DIG MAMM-SCREEN ALIZA from 04/13/2013 DMSB DIG MAMM-SCREEN ALIZA from 04/02/2016 MM DIG SCREENING MAMM BI W/CAD from 11/28/2019 TECHNIQUE: Spot-compression views are performed along with left breast ultrasound FINDINGS: The area of asymmetric density in the retroareolar region on the left appear to compress out is fibroglandular tissue. No malignant appearing mass or malignant-appearing microcalcification. Left breast ultrasound: There is a small cyst at 4 o'clock at 3 mm by 3 mm and a complicated cyst at 1 o'clock at 3 x 5 mm which could even account for the radiographic abnormality. IMPRESSION: No convincing evidence of malignancy. BI-RAD Category: 3 Probably Benign Finding Short Term Follow-up FOLLOW-UP: 6M 6Month Follow-up (A letter has been sent to the patient regarding results of the study.) Dictated by: Jose G Whyte MD 12/11/2019 15:41 Electronically signed by Jose G Whyte MD in [place] 12/11/2019 15:41
== END ==
PROVIDERS: PCP Family Medicine; Visit Provider Family Medicine
DX: R92.8 Other abnormal and inconclusive findings on diagnostic imaging of breast (principal)
CPT/HCPCS: 76641; 77061; 77065; G0279

== ENCOUNTER → 2020-02-11 10:10 | Outpatient (CLI) | payer BC, SELFPAY | PROVIDERS: PCP Family Medicine; Visit Provider Family Medicine | DX: R00.2 Palpitations (principal) | CPT/HCPCS: 93225; 93226 ==

== ENCOUNTER → 2020-06-16 13:50 | Outpatient (CLI) | payer BC, SELFPAY ==
--- NOTE | 2020-06-16 | US_ITS ---
PROCEDURE: MM DIG MAMM DX UNILAT LT CAD Digital Breast Tomosynthesis Included CLINICAL INDICATION: 6 MO FOLLOW UP COMPARISON: MG DMSB DIG MAMM-SCREEN ALIZA from 04/02/2016 MG MM DIG SCREENING MAMM BI W/CAD from 11/28/2019 MG MM DIG MAMM DX UNILAT LT CAD from 12/11/2019 US US BREAST LT COMPLETE from 12/11/2019 US US BREAST LT COMPLETE from 06/16/2020 TECHNIQUE: Left mammogram with spot compression views 3D tomography and left breast ultrasound FINDINGS: Average fibroglandular tissue. Asymmetry noted in the retroareolar region of the junction of the anterior mid 3rd of the left breast slightly less apparent compared to the previous exam. Left breast ultrasound: 4 mm cyst at 1 o'clock, 6 x 3 mm complex nodule at 1 o'clock and may represent a complex cyst or fibrocystic change which appears stable. No suspicious nodules are evident. There is a 3 mm cyst at 4 o'clock IMPRESSION: No significant change. No convincing evidence of malignancy. Recommend return to screening November 2020 BI-RAD Category: 2 Benign Finding(s) FOLLOW-UP: 6M 6Month Follow-up (A letter has been sent to the patient regarding results of the study.) Dictated by: Jose G Whyte MD 06/23/2020 10:55 Jose G Whyte MD in [place] 06/23/2020 10:55
== END ==
PROVIDERS: PCP Family Medicine; Visit Provider Family Medicine
DX: R92.8 Other abnormal and inconclusive findings on diagnostic imaging of breast (principal)
CPT/HCPCS: 76641; 77061; 77065; G0279

== ENCOUNTER → 2020-06-23 13:21 | Outpatient (POV) | payer BC, SELFPAY | PROVIDERS: Visit Provider Nurse Practitioner Family | DX: Z00.00 Encounter for general adult medical examination without abnormal findings (principal) ==

== ENCOUNTER → 2020-06-25 15:58 | Outpatient (CLI) | payer BC, SELFPAY ==
[2020-06-25 17:04] LABS: Coronavirus 19 IgG Antibody Negative (Negative); Coronavirus 19 IgM Antibody Negative (Negative)
== END ==
PROVIDERS: Visit Provider Internal Medicine Gastroenterology
DX: Z01.89 Encounter for other specified special examinations (principal); Z13.810 Encounter for screening for upper gastrointestinal disorder
CPT/HCPCS: 36415; 86328

== ENCOUNTER 2020-06-27 07:09 | Day surgery (SDC) | payer BC, SELFPAY ==
[2020-06-25 15:33] VITALS: BMI 32.5
[2020-06-27] VITALS (7 sets, daily range): BP systolic 90–142; BP diastolic 57–91; PULSE 61–76; RESP 16–20; TEMP 36.6; O2SAT 95–100
--- NOTE | 2020-06-27 07:33 | SUR.PREOP ---
0725-pt in [place] doing fleets enema.
--- NOTE | 2020-06-27 08:07 | P.PCN_ITS ---
[facility] Procedure Note Procedure Note:: Upper Endoscopy Procedure Report: Esophagogastroduodenoscopy with cold biopsies and TTS balloon dilation Endoscopost: Miguel Angel Patrick II, MD Referring Physician: Dash Walton MD Date of Procedure: June 27, 2020 Equipment: Olympus GIF 180 standard upper endoscope Sedation: MAC sedation Indications: Mrs. Early is a 55-year-old female with a history of functional dyspepsia, GERD and dysphagia. The patient does report epigastric abdominal discomfort, bloating, belching, nausea and early satiety. She will have dysphagia and regurgitation. She did have an EGD with me in October 2016 and had some cricopharyngeal spasm. She does take omeprazole and [id number] Nexium. She also takes Celebrex, Advil and occasional ibuprofen. She reports regular bowel function. She has no globus sensation. Procedure: Prior to the procedure, a history and physical exam was performed, and patient's medications and allergies were reviewed. The risks, benefits and alternatives of the sedation and procedure were discussed with the patient. All questions were answered and informed consent was obtained. The patient was brought to the procedure room. Patient identification and proposed procedure were verified by the physician and the nurse. The patient was placed in a left lateral decubitus position and the scope was passed under direct vision. Throughout the procedure, the patient's blood pressure, pulse, and oxygen saturations were monitored continuously. The upper GI endoscopy was accomplished without difficulty. The patient tolerated the procedure well. Findings: The scope was passed directly into the upper esophagus and advanced to the third portion of the duodenum. The post bulbar duodenum and duodenal bulb were normal with normal mucosa and conniventes. The scope was withdrawn through a normal duodenal bulb and pylorus into the stomach. There was moderate bile reflux with linear erosive gastropathy of the antrum consistent with reactive gastropathy. There were a few small gastric fundic gland polyps. The remainder of the antrum, body and fundus of the stomach were grossly normal. Upon retroflexion there was no hiatal hernia. Biopsies were taken from the gastric antrum to rule out reactive gastropathy. 1 of the gastric fundic polyps was removed via cold biopsy. The scope was then withdrawn into the esophagus. There was no evidence of reflux esophagitis or Solis's. There was no Schatzki's ring. There were tertiary contractions and evidence of moderate esophageal dysmotility. The entire esophagus was dilated to 60 [place]/20 mm with a TTS hydrostatic balloon. There was some resistance at the cricopharyngeus. The remainder of the esophageal mucosa was normal. Impression: 1. Cricopharyngeal spasm status post dilation to 20 mm 2. Nonerosive GERD with moderate esophageal dysmotility 3. Bile reflux with linear erosive reactive gastropathy Plan: I will follow-up the biopsies and I will discuss the findings with the patient and family. I would recommend dietary measures, fiber bowel regimen, promotility therapy and/or treatment for visceral sensitivity. The patient does have functional dyspepsia and functional GERD with esophageal dyskinesia. We will discuss these treatment options. I will proceed with colonoscopy.
--- NOTE | 2020-06-27 08:12 | HMH.ANESCL ---
[facility] Anesthesia Checklist - Patient Identification Patient Identification: Arm Band, Verbal (Name & ) - Structural Data Admitted From: Home Planned Operative Procedure/s: EGD/Colonoscopy Consent for Planned Operative Procedure(s) Verified: Yes Verified Documents: Surgical Consent, History and Physical - NPO Status Verified Time NPO: 00:00 - Chart Verification Results Verified: None - Additional verifications Anesthesia Reactions: No - Airway Assessment C-Spine Mobility Assessed: Yes TMJ Mobility Assessed: Yes Dentition: Good Dentition (Missing teeth) - Neurological Assessment Level of Consciousness: Awake, Alert, Appropriate, Follows Commands Hx Seizures: No Numbness or tingling in extremities: No - Anesthesia Plan Anesthesia Risk discussed: Yes Anesthesia Plan: Verified ASA Class: III Anesthesia Type: MAC [facility] History I have reviewed the patient's past medical history: Yes Medical History: Reports:: Anxiety, Depression, Gastroesophageal Reflux Disease(GERD), Hypertension, Migraine Denies:: Cancer, Diabetes Mellitus Type 1, Diabetes Mellitus Type 2, Gastrointestinal Bleed, Internal Pacemaker, MRSA, Renal Insufficiency, Seizures, Ulcer *Have you ever received a pneumonia vaccine?: No *Have you received a flu vaccine this season?: No Other Medical History: Reports: Arthritis, Hormone Therapy, Hypothyroidism, Thyroid Disease, Other Comment:: Obesity, [place] Anesthesia experience/problems:: None Laterality Cases: Right: Arthroscopy Shoulder, Other Other Surgeries: Yes: Cardiac Catheterization, Cholecystectomy, Colonoscopy, EGD, Hysterectomy-Partial. No: Pacemaker Amputation: No Fractures: No - *Social History Last grade of school completed: Advanced degree Smoking Status: Never smoker Alcohol Intake: never Substance Use Type: denies use *Occupational Status:: employed Housing: house Household Members: family *Travel in the last 8 weeks: None - Psychiatric History Pschychiatric History:: Reports:: Anxiety, Depression Family Hx:: Cancer, Heart Attack, Stroke
--- NOTE | 2020-06-27 08:34 | HMH.PROC ---
[facility] Procedure Note Procedure Note:: Colonoscopy Procedure Report: Colonoscopy Endoscopist: Miguel Angel Patrick II, MD Referring physician: Dash Walton MD Date of Procedure: June 27, 2020 Equipment: Olympus 180 variable stiffness pediatric colonoscope Sedation: MAC sedation Indication: Mrs. Early is a 55-year-old female who is here for screening/surveillance colonoscopy secondary to a previously poorly prepped colonoscopy. The patient did have a colonoscopy in October 2016 and had a cecal polyp (5 to 6 mm serrated adenoma) removed. Given the fact that the preparation was poor, she was scheduled for repeat surveillance. She reports no rectal bleeding, weight loss, change in her bowel habits or family history of colon cancer. Procedure: Prior to the procedure, a history and physical exam was performed, and patient's medications and allergies were reviewed. The risks, benefits and alternatives of the sedation and procedure were discussed with the patient. All questions were answered and informed consent was obtained. The patient was brought to the procedure room. Patient identification and proposed procedure were verified by the physician and the nurse. The patient was placed in a left lateral decubitus position and the scope was passed under direct vision. Throughout the procedure, the patient's blood pressure, pulse, and oxygen saturations were monitored continuously. The colonoscopy was accomplished without difficulty. The patient tolerated the procedure well. Findings: On digital rectal examination there was normal rectal tone. There were no external hemorrhoids. The colonoscope was introduced through the anal canal to the rectum and advanced to the cecum. The ileocecal valve and appendiceal orifice were identified. The scope was advanced a short distance into the ileum which appeared grossly normal. The scope was then withdrawn into the colon. The cecum, ascending, transverse, descending, sigmoid and rectum were grossly normal. There were no mucosal abnormalities identified. Upon retroflexion within the rectum there were grade 1 internal hemorrhoids.The preparation was good throughout with [place] Preparation Score of 8 out of 9. The cecal time was 10 minutes. Impression: 1. Normal colonoscopy with intubation of the terminal ileum Plan: The patient will not require screening/surveillance colonoscopy again for 10 years by ACS guidelines. I would encourage fiber bulk supplementation on a long-term daily maintenance basis.
== END 2020-06-27 09:28 | disposition home or self-care (01) ==
LOC: OUTP 07:10
PROVIDERS: PCP Family Medicine; Visit Provider Internal Medicine Gastroenterology
PROC: 0DJ08ZZ Inspection of Upper Intestinal Tract, Via Natural or Artificial Opening Endoscopic (ICD-10-PCS; CPT 43235; principal; 2020-06-27 08:00)
DX: Z12.11 Encounter for screening for malignant neoplasm of colon (principal); Z86.010 Personal history of colon polyps; J39.2 Other diseases of pharynx; K21.9 Gastro-esophageal reflux disease without esophagitis; K22.4 Dyskinesia of esophagus; K31.9 Disease of stomach and duodenum, unspecified; I10 Essential (primary) hypertension; M19.90 Unspecified osteoarthritis, unspecified site; E03.9 Hypothyroidism, unspecified; G47.33 Obstructive sleep apnea (adult) (pediatric); E66.9 Obesity, unspecified; F41.9 Anxiety disorder, unspecified; F32.9 Major depressive disorder, single episode, unspecified
CPT/HCPCS: 43239; 43249; 45378; C1726

== ENCOUNTER → 2020-11-28 13:34 | Outpatient (CLI) | payer BC, SELFPAY ==
--- NOTE | 2020-11-28 13:36 | MM_ITS ---
PROCEDURE: MM DIG SCREENING MAMM BI W/CAD Digital Breast Tomosynthesis Included CLINICAL INDICATION: SCREENING There is a history of breast cancer in the patient's mother diagnosed after menopause and the patient's sister diagnosed after menopause as well. There has been a previous cyst aspiration right breast for benign findings. densities are seen throughout both breast and the findings are bilateral and symmetrical. COMPARISON: MG MM DIG SCREENING MAMM BI W/CAD from 11/28/2019 MG MM DIG MAMM DX UNILAT LT CAD from 12/11/2019 MG MM DIG MAMM DX UNILAT LT CAD from 06/16/2020 TECHNIQUE: Standard CC and MLO images and 3D Tomosynthesis was obtained. R2 CAD reviewed. FINDINGS: Mild scattered fibroglandular densities are seen in both breast and the findings are bilateral and symmetrical. There are no CAD markings. There is no suspicious lesion and no suspicious microcalcifications. IMPRESSION: Fibrofatty parenchyma with no suspicious lesions seen BI-RAD Category: 1 Negative FOLLOW-UP: 1YR 1 Year Follow-up (A letter has been sent to the patient regarding results of the study.) Dictated by: Dr. Gerard Godwin MD 12/06/2020 08:27 Dr. Gerard Godwin MD in [place] 12/06/2020 08:27
== END ==
PROVIDERS: PCP Family Medicine; Visit Provider Family Medicine
DX: Z12.31 Encounter for screening mammogram for malignant neoplasm of breast (principal)
CPT/HCPCS: 77063; 77067

== ENCOUNTER → 2021-03-09 09:53 | Outpatient (CLI) | payer BC, SELFPAY ==
[2021-03-09 12:09] LABS: Alanine Aminotransferase 14 U/L (12-78); Albumin Level 3.9 g/dl (3.5-5.0); Albumin/Globulin Ratio 1.6 (1.1-1.8); Alkaline Phosphatase 66 U/L (38-126); Anion Gap 10.1 mEq/L (5-15); Aspartate Amino Transferase 19 U/L (14-36); Bilirubin,Total 0.8 mg/dl (0.2-1.3); Blood Urea Nitrogen 13 mg/dl (7-17); Calcium 8.7 mg/dl (8.4-10.2); Carbon Dioxide 28 mmol/L (22.0-30.0); Chloride 108 mmol/L (98-107); Chol/HDL Ratio 4.4 (1-3.5); Cholesterol 186 mg/dl (140-200); Estimated Glomerular Filt Rate 87 ml/min (>60); GFR (African American) 105 ML/MIN (>60); Globulin 2.4 g/dL (1.3-3.2); Glucose 91 mg/dl (74-100); HDL Cholesterol 42 mg/dl (40-60); Potassium 4.1 mmoL/L (3.5-5.1); Sodium 142 mmol/L (136-145); Total Protein,Serum 6.3 g/dl (6.3-8.2); Triglycerides 101 mg/dl (30-150); VLDL Cholesterol 20 mg/dL (0-40)
[2021-03-09 12:20] LABS: Direct LDL Cholesterol 123.35 mg/dL (100-129)
[2021-03-09 12:26] LABS: Free T4 (Free Thyroxine) 0.94 ng/dl (0.78-2.19)
[2021-03-09 12:27] LABS: 25-OH Vitamin D, Total 39.4 ng/mL (30-100)
[2021-03-09 12:40] LABS: Thyroid Stimulating Hormone 4.63 uIU/mL (0.465-4.68)
== END ==
PROVIDERS: Visit Provider Physician Assistant
DX: G43.909 Migraine, unspecified, not intractable, without status migrainosus (principal); I10 Essential (primary) hypertension; E03.9 Hypothyroidism, unspecified; E55.9 Vitamin D deficiency, unspecified; E78.5 Hyperlipidemia, unspecified
CPT/HCPCS: 36415; 80053; 80061; 82306; 84439; 84443

== ENCOUNTER 2021-04-19 09:50 | Emergency (ER) | payer BC, SELFPAY ==
[2021-04-19 09:58] VITALS: BMI 31.7
[2021-04-19 10:16] VITALS: BP 155/88; PULSE 61; RESP 18; TEMP 36.8; O2SAT 98; BMI 31.7
--- NOTE | 2021-04-19 10:47 | XR_ITS ---
PROCEDURE INFORMATION: Exam: XR Lumbosacral Spine Exam date and time: 04/19/2021 10:47 AM Age: 55 years old Clinical indication: Low back pain; Additional info: Lower back pain TECHNIQUE: Imaging protocol: XR of the lumbosacral spine. Views: 4 or 5 views. COMPARISON: CR LS5 LUMBAR SPINE 5 VIEWS 07/06/2017 1:03 PM FINDINGS: Bones/joints: Disc space narrowing L5-S1. No acute fracture. Normal alignment. Soft tissues: Unremarkable. IMPRESSION: No acute findings.
--- NOTE | 2021-04-19 12:08 | HMH.EDUTC ---
[facility] [place] Disposition Clinical Impression: Acute low back pain Qualifiers: Back pain laterality: bilateral Sciatica presence: without sciatica Qualified Code(s): M54.5 - Low back pain Disposition: Home, Self-Care Condition on Discharge: Good Instructions: DI for Low Back Pain Prescriptions: Cyclobenzaprine HCl [Cyclobenzaprine 10mg Tab*] 10 mg PO TIDP PRN 10 Days #30 tab PRN Reason: back pain Transmission Status: [facility] Lidocaine [Lidoderm 5% transdermal patch] 1 each TP Q24H 10 Days #30 adh..patch Transmission Status: Pending to [facility] Referrals: Ana Ledesma MD [Primary Care Provider] - Time of Disposition: 12:15 Medical Decision Making - John Inquiry Pt receiving controlled substance: No Vital Signs: 04/19/21 10:16 Temperature 98.2 F Temperature Source Oral Pulse Rate [Right] 61 Respiratory Rate 18 Blood Pressure [Right Arm] 155/88 H Blood Pressure Mean [Right Arm] 110 02 Sat by Pulse Oximetry 98 Oxygen Delivery Method Room Air - Radiology Data #1 Image(s): L-Spine Image Reviewed: Yes I reviewed the patient's radiology image, Yes I have reviewed radiologist's interpretation PROCEDURE INFORMATION: Exam: XR Lumbosacral Spine Exam date and time: 04/19/2021 10:47 AM Age: 55 years old Clinical indication: Low back pain; Additional info: Lower back pain TECHNIQUE: Imaging protocol: XR of the lumbosacral spine. Views: 4 or 5 views. COMPARISON: CR LS5 LUMBAR SPINE 5 VIEWS 07/06/2017 1:03 PM FINDINGS: Bones/joints: Disc space narrowing L5-S1. No acute fracture. Normal alignment. Soft tissues: Unremarkable. IMPRESSION: No acute findings. [facility] [place] HPI - General Stated complaint: back pain, no accident Time Seen by Provider: 04/19/21 11:04 Mode of Arrival: Family Vehicle Source of Information: Patient Limitations: No Limitations Description of Symptoms (Recalled from Triage Doc. by RN): Patient reports lower back pain for the last week without injury. Patient reports she is currently being evaluated for rheumatoid arthritis. Pt denies any flank pain. Patient denies any burning with urination. HEENT Symptoms (Recalled from RN notes): No Resp Symptoms (Recalled from RN notes): No Skin Symptoms (Recalled from RN notes): No MS Symptoms (Recalled from RN notes): Yes (LOWER BACK PAIN) Functional Status (Recalled from RN notes): NA - History of Present Illness Provider Complaint: Patient states she has had severe low back pain for the past 5-6 days. She denies injury. She recently started seeing a wool batting worker and is undergoing evaluation to differentiate between OA and RA. States autoimmune labs were elevated and goes back tomorrow for followup. She was taken off Celebrex at initial evaluation and given Prednisone. Back pain started after that. She states she can't get comfortable and can hardly walk. She restarted Celebrex without relief. Has history of neuropathy that perhaps seems worse on the bottom of her feet but no pain shooting down either leg. Does feel pain across both sides of her low back and some pressure with standing. No bowel or bladder incontinence. Onset (ago): week(s) (1) Location: back Severity: severe Severity scale (1-10): 8 Quality: stabbing, constant Consistency: constant Exacerbating factors: movement Associated symptoms: denies other symptoms Treatments prior to arrival: NSAID - Related Data Home Medications Medication Instructions Recorded Confirmed cholecalciferol (vitamin D3) 25 1,000 unit PO HS 10/28/17 06/27/20 mcg (1,000 unit) capsule conjugated estrogens 0.625 mg 0.625 mg PO HS 10/28/17 06/27/20 tablet escitalopram oxalate 20 mg tablet 20 mg PO HS 10/28/17 06/27/20 ropinirole 0.5 mg tablet 0.5 mg PO HSP PRN 10/28/17 06/27/20 Acetaminophen [Tylenol Arthritis] 650 mg PO DAILY PRN 03/07/19 06/27/20 Cyanocobala
[2021-04-19 12:26] VITALS: BP 155/88; PULSE 61; RESP 18; TEMP 36.8; O2SAT 98
== END 2021-04-19 12:30 | disposition home or self-care (01) ==
LOC: ER 09:59 → UTC 09:59
PROVIDERS: Emergency Provider Physician Assistant; PCP Family Medicine
DX: M54.5 Low back pain (principal); I10 Essential (primary) hypertension; F41.8 Other specified anxiety disorders; K21.9 Gastro-esophageal reflux disease without esophagitis; E03.9 Hypothyroidism, unspecified; Z88.2 Allergy status to sulfonamides; Z79.899 Other long term (current) drug therapy
CPT/HCPCS: 72110; 96372; 99202; G0463

== ENCOUNTER → 2021-09-01 16:46 | Outpatient (CLI) | payer BC, SELFPAY | PROVIDERS: Visit Provider Nurse Practitioner Family | DX: Z20.822 Contact with and (suspected) exposure to COVID-19 (principal) | CPT/HCPCS: C9803; U0003; U0005 ==

== ENCOUNTER → 2021-09-07 15:47 | Outpatient (CLI) | payer BC, SELFPAY | PROVIDERS: Visit Provider Nurse Practitioner | DX: Z20.822 Contact with and (suspected) exposure to COVID-19 (principal) | CPT/HCPCS: C9803; U0003; U0005 ==

== ENCOUNTER → 2021-12-02 16:19 | Outpatient (CLI) | payer BC, SELFPAY ==
--- NOTE | 2021-12-02 16:21 | MM_ITS ---
PROCEDURE INFORMATION: Exam: MG Bilateral Screening 3D Mammography Exam date and time: 12/02/2021 4:21 PM Age: 56 years old Clinical indication: Screening mammogram TECHNIQUE: Imaging protocol: Bilateral Screening tomosynthesis and 2D mammography including computer-aided detection (CAD) when performed. COMPARISON: 1. MG MM DIG SCREENING MAMM BI W/CAD 11/28/2020 1:37 PM 2. MG MM DIG MAMM DX UNILAT LT CAD 06/16/2020 2:07 PM 3. MG MM DIG MAMM DX UNILAT LT CAD 12/11/2019 2:44 PM 4. MG MM DIG SCREENING MAMM BI W/CAD 11/28/2019 9:36 AM FINDINGS: MAMMOGRAPHY: Breast composition: There are scattered areas of fibroglandular density. Mass: Stable benign-appearing subcentimeter nodules are present in the left breast. No new or morphologically suspicious nodule has developed to suggest malignancy. Architectural distortion: No new or suspicious architectural distortion. Calcifications: No new or suspicious calcifications are present Asymmetric density: No new or suspicious asymmetric density is present Skin thickening: None. Axillary adenopathy: None. IMPRESSION: No mammographic evidence of malignancy. Recommend annual screening mammography unless otherwise clinically indicated. ASSESSMENT: BI-RADS category 2: Benign
== END ==
PROVIDERS: PCP Family Medicine; Visit Provider Physician Assistant
DX: Z12.31 Encounter for screening mammogram for malignant neoplasm of breast (principal)
CPT/HCPCS: 77063; 77067

== ENCOUNTER → 2022-03-01 09:31 | Outpatient (CLI) | payer BC, SELFPAY ==
[2022-03-01 10:38] LABS: Alanine Aminotransferase 16 U/L (12-78); Albumin Level 3.5 g/dl (3.5-5.0); Albumin/Globulin Ratio 1.5 (1.1-1.8); Alkaline Phosphatase 59 U/L (38-126); Anion Gap 6.7 mEq/L (5-15); Aspartate Amino Transferase 17 U/L (14-36); Bilirubin,Total 0.2 mg/dl (0.2-1.3); Blood Urea Nitrogen 24 mg/dl (7-17); Calcium 8.9 mg/dl (8.4-10.2); Carbon Dioxide 32 mmol/L (22.0-30.0); Chloride 106 mmol/L (98-107); Chol/HDL Ratio 4.3 (1-3.5); Cholesterol 181 mg/dl (140-200); Estimated Glomerular Filt Rate 74 ml/min (>60); GFR (African American) 89 ML/MIN (>60); Globulin 2.3 g/dL (1.3-3.2); Glucose 91 mg/dl (74-100); HDL Cholesterol 42 mg/dl (40-60); Magnesium 1.8 mg/dl (1.6-2.3); Phosphorous 4.2 mg/dl (2.5-4.5); Potassium 3.7 mmoL/L (3.5-5.1); Sodium 141 mmol/L (136-145); Total Protein,Serum 5.8 g/dl (6.3-8.2); Triglycerides 175 mg/dl (30-150); VLDL Cholesterol 35 mg/dL (0-40)
[2022-03-01 10:49] LABS: Direct LDL Cholesterol 99.62 mg/dL (100-129)
[2022-03-01 10:56] LABS: 25-OH Vitamin D, Total 41.3 ng/mL (30-100)
[2022-03-01 11:09] LABS: Thyroid Stimulating Hormone 8.35 uIU/mL (0.465-4.68)
[2022-03-01 11:28] LABS: Vitamin B12 323 pg/mL (239-931)
== END ==
PROVIDERS: PCP Physician Assistant; Visit Provider Physician Assistant
DX: E78.5 Hyperlipidemia, unspecified (principal); R25.2 Cramp and spasm; R53.83 Other fatigue; E55.9 Vitamin D deficiency, unspecified
CPT/HCPCS: 36415; 80053; 80061; 82306; 82607; 83735; 84100; 84443

== ENCOUNTER 2022-03-16 14:47 | Emergency (ER) | payer BC, SELFPAY ==
--- NOTE | 2022-03-16 14:50 | XR_ITS ---
FINAL REPORT CLINICAL HISTORY: FALL 1 week ago COMPARISON: April 19, 2021 FINDINGS: LUMBAR SPINE Three views were obtained. There is no acute fracture. There is no malalignment. There is disc space narrowing at L5-S1. There are mild and moderate degenerative changes. There is no soft tissue abnormality. There is facet arthropathy of the lower lumbar spine. IMPRESSION: No acute bony abnormality. Reviewed, Interpreted and Dictated by William Angulo III, MD Transcribed by Jazzmine Pedersen Authenticated and [facility]
[2022-03-16 15:20] VITALS: BP 120/83; PULSE 64; RESP 19; TEMP 37; O2SAT 97; BMI 29.0
--- NOTE | 2022-03-16 15:53 | HMH.EDUTC ---
[facility] [place] Clinical Impression: Low back pain Qualifiers: Chronicity: unspecified Back pain laterality: midline Sciatica presence: without sciatica Qualified Code(s): M54.50 - Low back pain, unspecified Disposition: Home, Self-Care Condition on Discharge: Good Instructions: How To Perform RICE (Rest, Ice, Compress, Elevate), Cyclobenzaprine Additional Instructions: *You can take Tylenol every 4 hours as needed for pain *Ice 20 minutes every 2 hours for the first 48 hours after the initial injury followed by moist heat every 20 minutes 3-4 times a day to affected area *Muscle relaxer every 8 hours as needed for muscle spasms but remember, it WILL cause drowsiness You cannot take it and drive, operate machinery or care for small children. *Keep this area active, no movement leads to more stiffness, However take it easy and avoid heavy lifting pushing or pulling *Follow up with you family doctor if no improvement for further treatment Over the counter Lidocaine patches may help with pain Start oral steriods tomorrow Return if needed Straight to ER if any loss of control of bowel or bladder Prescriptions: Cyclobenzaprine HCl [Flexeril 10mg tablet] 10 mg PO Q8HP PRN #30 tab PRN Reason: Muscle Spasm Transmission Status: Received by [facility] methylPREDNISolone [Medrol 4mg tab] 4 mg PO DIRECTED #21 tab Transmission Status: Received by [facility] Referrals: Ana Ledesma MD [Primary Care Provider] - As needed Medical Decision Making - John Inquiry Pt receiving controlled substance: No John was queried for this patient: No Vital Signs: 03/16/22 15:20 03/16/22 16:19 Temperature 98.6 F 98.6 F Temperature Source Oral Pulse Rate 64 Pulse Rate [Right Brachial] 64 Respiratory Rate 19 19 Blood Pressure 120/83 Blood Pressure [Right Arm] 120/83 Blood Pressure Mean [Right Arm] 95 Blood Pressure Source [Right Arm] Automatic Cuff Blood Pressure Position [Right Arm] Sitting 02 Sat by Pulse Oximetry 97 Oxygen Delivery Method Room Air Orders (Tests/Meds): ED MEDICATIONS Discontinued Medications Generic Name Dose Route Start Last Admin Trade Name Freq PRN Reason Stop Dose Admin Methylprednisolone Sodium Succinate 125 mg 03/16/22 16:07 03/16/22 16:17 Methylprednisolone Sod Succ 125mg Vial IM 03/16/22 16:08 125 mg ONCE ONE Administration - Radiology Data #1 Image(s): L-Spine Image Reviewed: Yes I have reviewed radiologist's interpretation IMPRESSION: No acute bony abnormality. [facility] [place] - General Stated complaint: AO fall 03/09 back pain Time Seen by Provider: 03/16/22 15:20 Mode of Arrival: Ambulatory Source of Information: Patient Limitations: No Limitations Description of Symptoms (Recalled from Triage Doc. by RN): PATIENT C/O LOWER BACK PAIN SINCE FALLING ONE WEEK AGO TODAY. SHE STATES THE PAIN HAS GOTTEN WORSE HEENT Symptoms (Recalled from RN notes): No Resp Symptoms (Recalled from RN notes): No Skin Symptoms (Recalled from RN notes): No MS Symptoms (Recalled from RN notes): Yes Functional Status (Recalled from RN notes): WNL - History of Present Illness Provider Complaint: Patient states that she was pressure washing her house about a week ago when she lost her balance and fell State that she was bruised up and her lower back was sore but she took it easy for a few days and it was feeling a little better but she got out and finished pressure washing her house and mowed her lawn then she started having spasms again in her lower back and hurts when she moves and walks States that family was concerned due to fall so they had her come in Denies loss of control of bowel or bladder - Related Data Home Medications Medication Instructions Recorded Confirmed cholecalciferol (vitamin D3) 25 1,000 unit PO HS 10/28/17 09/01/21 mcg (1,000 unit) capsule escitalopram oxalate 20 mg tablet 20 mg PO HS 10/28/17 09/01/21 ropinirole 0.5 mg t
[2022-03-16 16:19] VITALS: BP 120/83; PULSE 64; RESP 19; TEMP 37; O2SAT 97
== END 2022-03-16 16:31 | disposition home or self-care (01) ==
PROVIDERS: Emergency Provider Nurse Practitioner; PCP Family Medicine
DX: M54.50 Low back pain, unspecified (principal); W01.0XXA Fall on same level from slipping, tripping and stumbling without subsequent striking against object, initial encounter; Y92.017 Garden or yard in single-family (private) house as the place of occurrence of the external cause; F41.9 Anxiety disorder, unspecified; F32.A Depression, unspecified; K21.9 Gastro-esophageal reflux disease without esophagitis; I10 Essential (primary) hypertension; G43.909 Migraine, unspecified, not intractable, without status migrainosus
CPT/HCPCS: 72100; 96372; 99212; G0463

== ENCOUNTER 2022-06-29 10:47 | Emergency (ER) | payer BC, SELFPAY ==
[2022-06-29 11:24] VITALS: BP 141/92; PULSE 67; RESP 16; TEMP 36.8; O2SAT 98; BMI 31.0
--- NOTE | 2022-06-29 11:25 | EXP.UTC ---
Discharge Plan Disposition Patient Disposition: Home, Self-Care Condition: Good Prescriptions Prescriptions: New azithromycin [Zithromax] 250 mg tablet 250 mg PO UD DOSE PK Qty: 6 0RF Rx Instructions: Take two (2) tablets today, then one (1) tablet days #2 thru #5 benzonatate [benzonatate] 100 mg capsule 100 mg PO TIDP PRN (Reason: Cough) Qty: 30 0RF methylprednisolone 4 mg Tablets,Dose Pack 4 mg PO DIRECTED Qty: 21 0RF No Action escitalopram oxalate 20 mg tablet 20 mg PO HS cholecalciferol (vitamin D3) 1,000 unit capsule 1,000 unit PO HS ropinirole 0.5 mg tablet 0.5 mg PO HSP PRN (Reason: Restless Leg) rizatriptan 10 mg tablet,disintegrating 10 mg PO ONCE Label Comments: DISSOLVE 1 TABLET IN MOUTH ONCE DAILY sertraline [Zoloft] 100 mg tablet 100 mg PO DAILY acetaminophen 650 MG tablet extended release 650 mg PO DAILY PRN (Reason: pain) lisinopril-hydrochlorothiazide 1 EACH tablet 1 tab PO HS cyclobenzaprine 10 MG tablet 10 mg PO HSP PRN (Reason: arthritis) levothyroxine 50 MCG tablet 50 mcg PO HS magnesium oxide 250 MG tablet 250 mg PO HS cyanocobalamin (vitamin B-12) 500 MCG tablet 500 mcg PO HS potassium gluconate 600 MG tablet 550 mg PO HS Rx Instructions: PATIENT TAKES POTASSIUM 550 MG. NOT AVAILABLE IN [employer] sucralfate 1 GM/10 ML suspension 10 ml PO QID Rx Instructions: take with meals cyclobenzaprine 10 MG tablet 10 mg PO TIDP PRN (Reason: back pain) 10 Days Qty: 30 0RF lidocaine 1 EACH adhesive patch,medicated 1 each TP Q24H 10 Days Qty: 30 0RF cyclobenzaprine 10 MG tablet 10 mg PO Q8HP PRN (Reason: Muscle Spasm) Qty: 30 0RF methylprednisolone 4 MG tablet 4 mg PO DIRECTED Qty: 21 0RF Rx Instructions: Take as directed on package instructions Start on 03/17/22 Referrals Follow up/Referrals: Shannon Soto PA [Primary Care Provider] - See instructions Activity Restrictions/Add. Instructions Additional Instructions/Restrictions: Drink plenty of fluids. Take tylenol or ibuprofen for pain or fever. Take the medications as directed. Follow up with your regular doctor. GO TO THE ER FOR ANY WORSENING SYMPTOMS Quarantine until you know the results of your covid-19 test. Notify your school or workplace of your results and follow their instructions regarding return to work/school. Don't start the oral steroids until tomorrow, since you had the shot here today. Clinical Impressions Clinical Impression: Sinusitis, Otitis media Stand Alone Forms Stand Alone Forms: Work/School Release Instructions Patient Instructions: Middle Ear Infection, DI for Sinusitis, Preventing the Spread of Coronavirus Discharge Instructions Discharge ED Provider: Anderson Dyer [facility] General Stated complaint: ear pain, sore throat, lung congestion Time Seen by Provider: 06/29/22 11:21 History of Present Illness Provider Complaint: She states that for the past 2 days she has had sore throat and bilateral ear pain. Related Data Home Medications Medication Instructions Recorded Confirmed cholecalciferol (vitamin D3) 25 1,000 unit PO HS Supplement 10/28/17 09/01/21 mcg (1,000 unit) capsule escitalopram oxalate 20 mg tablet 20 mg PO HS Anxiety 10/28/17 09/01/21 ropinirole 0.5 mg tablet 0.5 mg PO HSP PRN Restless Leg 10/28/17 09/01/21 acetaminophen 650 mg 650 mg PO DAILY PRN pain 03/07/19 09/01/21 tablet,extended release cyanocobalamin (vitamin B-12) 500 500 mcg PO HS Supplement 03/07/19 09/01/21 mcg tablet cyclobenzaprine 10 mg tablet 10 mg PO HSP PRN arthritis 03/07/19 09/01/21 levothyroxine 50 mcg tablet 50 mcg PO HS hypothyroid 03/07/19 09/01/21 lisinopril 20 1 tab PO HS High blood pressure 03/07/19 09/01/21 mg-hydrochlorothiazide 25 mg tablet magnesium oxide 250 mg PO HS supplement 03/07/19 09/01/21 potassium glucon
[2022-06-29 11:41] LABS: UTC Strep Screen (Rapid) Negative (Negative)
[2022-06-29 11:59] VITALS: BP 141/92; PULSE 67; RESP 16; TEMP 36.8
== END 2022-06-29 12:09 | disposition home or self-care (01) ==
PROVIDERS: Emergency Provider Nurse Practitioner Family; PCP Physician Assistant
DX: H66.90 Otitis media, unspecified, unspecified ear (principal); J32.9 Chronic sinusitis, unspecified
CPT/HCPCS: 87880; 96372; 99212; C9803; G0463; U0003; U0005

== ENCOUNTER → 2022-07-16 16:40 | Outpatient (CLI) | payer BC, SELFPAY | LOC: RT 16:42 | PROVIDERS: PCP Physician Assistant; Visit Provider Physician Assistant | DX: R00.2 Palpitations (principal) | CPT/HCPCS: 93225; 93226 ==

== ENCOUNTER → 2022-08-03 10:09 | Outpatient (CLI) | payer BC, SELFPAY | PROVIDERS: PCP Physician Assistant; Visit Provider Physician Assistant | DX: Z80.3 Family history of malignant neoplasm of breast (principal) ==

== ENCOUNTER → 2022-12-10 15:27 | Outpatient (CLI) | payer BC, SELFPAY ==
--- NOTE | 2022-12-10 15:32 | MM_ITS ---
PROCEDURE INFORMATION: Exam: MG Bilateral Screening 3D Mammography Exam date and time: 12/10/2022 3:26 PM Age: 57 years old Clinical indication: Screening mammogram TECHNIQUE: Imaging protocol: Bilateral Screening tomosynthesis and 2D mammography including computer-aided detection (CAD) when performed. COMPARISON: 1. MG MM DIG SCREENING MAMM BI W/CAD 12/02/2021 4:16 PM 2. MG MM DIG SCREENING MAMM BI W/CAD 11/28/2020 1:37 PM 3. MG MM DIG MAMM DX UNILAT LT CAD 06/16/2020 2:07 PM 4. MG MM DIG MAMM DX UNILAT LT CAD 12/11/2019 2:44 PM FINDINGS: MAMMOGRAPHY: Breast composition: There are scattered areas of fibroglandular density. Mass: Stable benign-appearing subcentimeter nodules are present in the left breast. No new or morphologically suspicious nodule has developed to suggest malignancy. Architectural distortion: No new or suspicious architectural distortion. Calcifications: No new or suspicious calcifications are present Asymmetric density: No new or suspicious asymmetric density is present Skin thickening: None. Axillary adenopathy: None. IMPRESSION: No mammographic evidence of malignancy. Recommend annual screening mammography unless otherwise clinically indicated. ASSESSMENT: BI-RADS category 2: Benign
== END ==
PROVIDERS: PCP Physician Assistant; Visit Provider Physician Assistant
DX: Z12.31 Encounter for screening mammogram for malignant neoplasm of breast (principal)
CPT/HCPCS: 77063; 77067

== ENCOUNTER 2023-01-15 10:18 | Emergency (ER) | payer BC, SELFPAY ==
--- NOTE | 2023-01-15 10:49 | EXP.UTC ---
Discharge Plan Disposition Patient Disposition: Home, Self-Care Condition: Good Prescriptions Prescriptions: New cyclobenzaprine 10 mg Tablet 10 mg PO BID PRN (Reason: Muscle Spasm) Qty: 20 0RF methylprednisolone 4 mg Tablets,Dose Pack 4 mg PO DIRECTED Qty: 21 0RF No Action escitalopram oxalate 20 mg tablet 20 mg PO HS cholecalciferol (vitamin D3) 1,000 unit capsule 1,000 unit PO HS ropinirole 0.5 mg tablet 0.5 mg PO HSP PRN (Reason: Restless Leg) rizatriptan 10 mg tablet,disintegrating 10 mg PO ONCE Label Comments: DISSOLVE 1 TABLET IN MOUTH ONCE DAILY sertraline [Zoloft] 100 mg tablet 100 mg PO DAILY acetaminophen 650 MG tablet extended release 650 mg PO DAILY PRN (Reason: pain) lisinopril-hydrochlorothiazide 1 EACH tablet 1 tab PO HS cyclobenzaprine 10 MG tablet 10 mg PO HSP PRN (Reason: arthritis) levothyroxine 50 MCG tablet 50 mcg PO HS magnesium oxide 250 MG tablet 250 mg PO HS cyanocobalamin (vitamin B-12) 500 MCG tablet 500 mcg PO HS potassium gluconate 600 MG tablet 550 mg PO HS Rx Instructions: PATIENT TAKES POTASSIUM 550 MG. NOT AVAILABLE IN [facility] azithromycin [Zithromax] 250 mg tablet 250 mg PO UD DOSE PK Qty: 6 0RF Rx Instructions: Take two (2) tablets today, then one (1) tablet days #2 thru #5 benzonatate [benzonatate] 100 mg capsule 100 mg PO TIDP PRN (Reason: Cough) Qty: 30 0RF methylprednisolone 4 mg Tablets,Dose Pack 4 mg PO DIRECTED Qty: 21 0RF sucralfate 1 GM/10 ML suspension 10 ml PO QID Rx Instructions: take with meals cyclobenzaprine 10 MG tablet 10 mg PO TIDP PRN (Reason: back pain) 10 Days Qty: 30 0RF lidocaine 1 EACH adhesive patch,medicated 1 each TP Q24H 10 Days Qty: 30 0RF cyclobenzaprine 10 MG tablet 10 mg PO Q8HP PRN (Reason: Muscle Spasm) Qty: 30 0RF methylprednisolone 4 MG tablet 4 mg PO DIRECTED Qty: 21 0RF Rx Instructions: Take as directed on package instructions Start on 03/17/22 Referrals Follow up/Referrals: Crowdy,Shannon, PA [Primary Care Provider] - See instructions Activity Restrictions/Add. Instructions Additional Instructions/Restrictions: Go home and rest. It would be best if you rested tomorrow too. No heavy lifting. No twisting. Take the oral medications as directed. The muscle relaxer (cyclobenzaprine--Flexeril) will make you drowsy, so don't drive or operate heavy machinery after taking it. Don't take the flexeril if you already take other muscle relaxers. Two of these will make you too drowsy. Don't start the oral steroids (medrol dose pack) until tomorrow, since you had the shots in here today. Follow up with your regular doctor. GO TO THE ER FOR ANY WORSENING SYMPTOMS OR CONCERN, ESPECIALLY BOWEL OR BLADDER ISSUES, SADDLE AREA NUMBNESS, FEVER, ETC Clinical Impressions Clinical Impression: Low back pain Instructions Patient Instructions: Low Back Pain, DI for Low Back Pain Discharge ED Provider: Anderson Dyer [facility] General Stated complaint: Back pain Time Seen by Provider: 01/15/23 10:49 History of Present Illness Provider Complaint: She states that for the past 2 days she has had low back pain. She denies any urinary symptoms or other complaints. Related Data Home Medications Medication Instructions Recorded Confirmed cholecalciferol (vitamin D3) 25 1,000 unit PO HS Supplement 10/28/17 09/01/21 mcg (1,000 unit) capsule escitalopram oxalate 20 mg tablet 20 mg PO HS Anxiety 10/28/17 09/01/21 ropinirole 0.5 mg tablet 0.5 mg PO HSP PRN Restless Leg 10/28/17 09/01/21 acetaminophen 650 mg 650 mg PO DAILY PRN pain 03/07/19 09/01/21 tablet,extended release cyanocobalamin (vitamin B-12) 500 500 mcg PO HS Supplement 03/07/19 09/01/21 mcg tablet cyclobenzaprine 10 mg tablet 10 mg PO HSP PRN arthritis 03/07/19 09/01/21 levothyroxine
[2023-01-15 11:00] VITALS: BP 125/73; PULSE 56; RESP 20; TEMP 36.9; O2SAT 100; BMI 32.5
[2023-01-15 11:29] LABS: Apearance,Urine Slightly Cloudy (Clear); Bilirubin,Urine Negative (Negative); Blood, Urine Negative (Negative); Color,Urine Dark Yellow (Yellow); Glucose,Urine (UA) Negative (Negative); Ketones,Urine Negative (Negative); Protein,Urine Negative (Negative); Specific Gravity, Urine 1.025 (1.005-1.030); UTC Leukocyte Esterase,Urine Negative (Negative); UTC Nitrate,Urine Negative (Negative); Urobilinogen,Urine 0.2 EU/dl (0.2)
[2023-01-15 12:07] VITALS: BP 125/73; PULSE 56; RESP 20; TEMP 36.9; O2SAT 100
== END 2023-01-15 12:06 | disposition home or self-care (01) ==
PROVIDERS: Emergency Provider Nurse Practitioner Family; PCP Physician Assistant
DX: M54.50 Low back pain, unspecified (principal); I10 Essential (primary) hypertension; E03.9 Hypothyroidism, unspecified
CPT/HCPCS: 81003; 96372; 99212; 99214; G0463

== ENCOUNTER → 2023-03-28 11:21 | Outpatient (CLI) | payer BC, SELFPAY ==
[2023-03-28 11:36] LABS: Basophils % 0.6 % (0.1-2.0); Eosinophils # 0.2 K/mm3 (0.0-0.4); Eosinophils % 4.4 % (0.1-12.0); Hematocrit 41.5 % (37.0-47.0); Hemoglobin 13.5 g/dL (12.2-16.2); Lymphocytes # 1.3 K/mm3 (0.7-4.5); Lymphocytes % 30.5 % (10-50); Mean Corpuscular HGB Conc 32.4 g/dL (31.8-35.4); Mean Corpuscular Hemoglobin 29.2 pg (27.0-31.2); Mean Platelet Volume 9.4 fl (7.4-10.4); Monocytes # 0.3 K/mm3 (0.1-1.0); Monocytes % 5.7 % (1.7-9.3); Neutrophils # 2.6 K/mm3 (1.8-7.8); Neutrophils % 58.8 % (37.0-80.0); Platelet Count 207 K/mm3 (142-424); Red Blood Count 4.62 M/mm3 (4.20-5.40); Red Cell Distribution Width 13.8 % (11.5-17.5); White Blood Count 4.4 K/mm3 (4.8-10.8)
[2023-03-28 12:05] LABS: Alanine Aminotransferase 24 U/L (12-78); Albumin Level 3.8 g/dl (3.5-5.0); Albumin/Globulin Ratio 1.5 (1.1-1.8); Alkaline Phosphatase 62 U/L (38-126); Anion Gap 10.4 mEq/L (5-15); Aspartate Amino Transferase 26 U/L (14-36); Bilirubin,Total 0.5 mg/dl (0.2-1.3); Blood Urea Nitrogen 16 mg/dl (7-17); Calcium 8.7 mg/dl (8.4-10.2); Carbon Dioxide 30 mmol/L (22.0-30.0); Chloride 105 mmol/L (98-107); Estimated Glomerular Filt Rate 74 ml/min (>60); GFR (African American) 89 ML/MIN (>60); Globulin 2.5 g/dL (1.3-3.2); Glucose 103 mg/dl (74-100); Potassium 4.4 mmoL/L (3.5-5.1); Sodium 141 mmol/L (136-145); Total Protein,Serum 6.3 g/dl (6.3-8.2)
== END ==
LOC: LAB 11:23
PROVIDERS: PCP Physician Assistant; Referring Provider Obstetrics & Gynecology Gynecology; Visit Provider Nurse Practitioner Women's Health
DX: R19.09 Other intra-abdominal and pelvic swelling, mass and lump (principal); M25.50 Pain in unspecified joint; Z79.1 Long term (current) use of non-steroidal anti-inflammatories (NSAID); Z79.899 Other long term (current) drug therapy
CPT/HCPCS: 36415; 80053; 85025

== ENCOUNTER 2023-08-27 10:14 | Emergency (ER) | payer BC, SELFPAY ==
[2023-08-27 10:35] VITALS: BP 140/88; PULSE 68; RESP 18; TEMP 37; O2SAT 98; BMI 32.5
--- NOTE | 2023-08-27 11:20 | EXP.UTC ---
Discharge Plan Disposition Patient Disposition: Home, Self-Care Condition: Good Prescriptions Prescriptions: New azithromycin [azithromycin] 250 mg tablet 250 mg PO DIRECTED Qty: 6 0RF Rx Instructions: Take two (2) tablets on day #1, then one (1) tablet day #2 thru #5 fluticasone propionate [fluticasone propionate] 50 mcg/actuation spray,suspension 1 spray intranasal DAILY Qty: 9.9 0RF No Action cholecalciferol (vitamin D3) 1,000 unit capsule 1,000 unit PO HS nabumetone 750 mg tablet 750 mg PO DAILY Patient Comments: TAKE 1 TABLET BY MOUTH TWICE DAILY NEEDED FOR ARTHRITIS PAIN lisinopril 20 mg tablet 20 mg PO DAILY oxybutynin chloride 5 mg tablet extended release 24hr 5 mg PO DAILY levothyroxine 75 mcg tablet 75 mcg PO DAILY Patient Comments: TAKE 1 TABLET BY MOUTH ONCE DAILY bisoprolol fumarate 5 mg tablet 5 mg PO DAILY Patient Comments: TAKE 1 TABLET BY MOUTH ONCE DAILY cyanocobalamin (vitamin B-12) 500 MCG tablet 500 mcg PO HS rizatriptan 10 mg tablet 10 mg PO DIRECTED Patient Comments: TAKE 1 TABLET BY MOUTH ONCE DAILY NEEDED sertraline 100 mg tablet 100 mg PO DAILY Patient Comments: TAKE 1 TABLET BY MOUTH ONCE DAILY Referrals Follow up/Referrals: Shannon Soto PA [Primary Care Provider] - See instructions Activity Restrictions/Add. Instructions Additional Instructions/Restrictions: Start antibiotic patient to take as ordered for a full length of time even if you feel better. Sinus infections do not get better overnight. It may take 2-3 days to notice much improvement so be sure to use conservative measures as discussed for symptoms. Flonase 1 spray each nostril daily to help with nasal congestion, sinus and ear pressure/information Increase fluids Humidifier/vaporizer as needed Tylenol and ibuprofen as needed for fever or pain. If symptoms do not improve or get worse return or be seen in the ER Follow-up with primary care this week Clinical Impressions Clinical Impression: Sinusitis Qualifiers: Sinusitis location: maxillary Chronicity: acute Recurrence: non-recurrent Qualified Code(s): J01.00 - Acute maxillary sinusitis, unspecified Instructions Patient Instructions: DI for Sinusitis Discharge ED Provider: Radha ([facility])[place] [facility] [place] General Stated complaint: sinus pressure Mode of Arrival: Ambulatory Source of Information: Patient Limitations: No Limitations Time Seen by Provider: 08/27/23 11:20 Description of Symptoms (Recalled from Triage Doc. by RN): sinus pressure, cough, and congestion HEENT Symptoms (Recalled from RN notes): Yes Resp Symptoms (Recalled from RN notes): No Skin Symptoms (Recalled from RN notes): No MS Symptoms (Recalled from RN notes): No Functional Status (Recalled from RN notes): n/a History of Present Illness Provider Complaint: 58 yr old female presents for sinus pressure, sinus tenderness, yellow/green drainage, cough, and congestion for over one week Related Data Home Medications Medication Instructions Recorded Confirmed cholecalciferol (vitamin D3) 25 1,000 unit PO HS Supplement 10/28/17 05/03/23 mcg (1,000 unit) capsule cyanocobalamin (vitamin B-12) 500 500 mcg PO HS Supplement 03/07/19 05/03/23 mcg tablet bisoprolol fumarate 5 mg tablet 5 mg PO DAILY 05/03/23 08/27/23 levothyroxine 75 mcg tablet 75 mcg PO DAILY 05/03/23 08/27/23 lisinopril 20 mg tablet 20 mg PO DAILY 05/03/23 08/27/23 nabumetone 750 mg tablet 750 mg PO DAILY 05/03/23 08/27/23 oxybutynin chloride 5 mg 5 mg PO DAILY 05/03/23 05/03/23 tablet,extended release 24 hr rizatriptan 10 mg tablet 10 mg PO DIRECTED 08/27/23 08/27/23 sertraline 100 mg tablet 100 mg PO DAILY 08/27/23 08/27/23 Previous Rx's Medication Instructions Recorded azithromycin 250 mg tablet 250 mg PO DIRECTED #6 tabs 08/27/23 fluticasone propionate 50 1 spray intranasal DAILY #9.9 mL 12
[2023-08-27 11:34] VITALS: BP 140/88; PULSE 68; RESP 18; TEMP 37; O2SAT 98
== END 2023-08-27 11:34 | disposition home or self-care (01) ==
PROVIDERS: Emergency Provider Nurse Practitioner Family; PCP Physician Assistant
DX: J01.00 Acute maxillary sinusitis, unspecified (principal); R05.9 Cough, unspecified; R09.81 Nasal congestion; R09.82 Postnasal drip; I10 Essential (primary) hypertension; E03.9 Hypothyroidism, unspecified
CPT/HCPCS: 99212; 99214; G0463

== ENCOUNTER → 2023-09-03 11:42 | Outpatient (CLI) | payer BC, SELFPAY ==
[2023-09-03 11:49] LABS: Adenovirus,PCR Not Detected (NotDetected); Coronavirus 229E Not Detected (NotDetected); Coronavirus NL63 Not Detected (NotDetected); Coronavirus OC43 Not Detected (NotDetected); Coronovirus HKU1,PCR Not Detected (NotDetected); Human Metapneumovirus Not Detected (NotDetected); Influenza A, PCR Not Detected (NotDetected); Influenza AH1, 2009 Not Detected (NotDetected); Influenza AH1, PCR Not Detected (NotDetected); Influenza AH3,PCR Not Detected (NotDetected); Influenza B, PCR Not Detected (NotDetected); Parainfluenza 1, PCR Not Detected (NotDetected); Parainfluenza 2, PCR Not Detected (NotDetected); Parainfluenza 3, PCR Not Detected (NotDetected); Parainfluenza 4, PCR Not Detected (NotDetected); Respiratory Syncytial Virus Not Detected (NotDetected); Rhinovirus/Enterovirus Not Detected (NotDetected)
[2023-09-03 13:47] LABS: Coronavirus 19, PCR Detected (NotDetected)
== END ==
PROVIDERS: PCP Physician Assistant; Visit Provider Family Medicine
DX: J06.9 Acute upper respiratory infection, unspecified (principal); U07.1 COVID-19
CPT/HCPCS: 87632; 87635

== ENCOUNTER 2023-10-17 08:50 | Outpatient (CLI) | payer BC, SELFPAY ==
[2023-10-17 10:20] LABS: Alanine Aminotransferase 19 U/L (12-78); Albumin Level 3.9 g/dl (3.5-5.0); Albumin/Globulin Ratio 1.5 (1.1-1.8); Alkaline Phosphatase 71 U/L (38-126); Anion Gap 12.5 mEq/L (5-15); Aspartate Amino Transferase 21 U/L (14-36); Bilirubin,Total 0.6 mg/dl (0.2-1.3); Blood Urea Nitrogen 16 mg/dl (7-17); Calcium 8.8 mg/dl (8.4-10.2); Carbon Dioxide 31 mmol/L (22.0-30.0); Chloride 104 mmol/L (98-107); Cholesterol 229 mg/dl (140-200); Estimated Glomerular Filt Rate 73 ml/min (>60); GFR (African American) 89 ML/MIN (>60); Globulin 2.6 g/dL (1.3-3.2); Glucose 98 mg/dl (74-100); HDL Cholesterol 38 mg/dl (40-60); Potassium 4.5 mmoL/L (3.5-5.1); Sodium 143 mmol/L (136-145); Total Protein,Serum 6.5 g/dl (6.3-8.2); Triglycerides 146 mg/dl (30-150); Uric Acid 6.1 mg/dl (2.5-6.2); VLDL Cholesterol 29 mg/dL (0-40)
[2023-10-17 10:31] LABS: Direct LDL Cholesterol 155.15 mg/dL (100-129)
[2023-10-17 11:10] LABS: Thyroid Stimulating Hormone 6.62 uIU/mL (0.465-4.68)
[2023-10-17 11:17] LABS: 25-OH Vitamin D, Total 65.2 ng/mL (30-100)
[2023-10-17 11:22] LABS: Free T4 (Free Thyroxine) 1.09 ng/dl (0.78-2.19)
== END 2023-10-17 23:59 ==
LOC: LAB 08:51
PROVIDERS: PCP Physician Assistant; Visit Provider Family Medicine
DX: E03.9 Hypothyroidism, unspecified (principal); E78.00 Pure hypercholesterolemia, unspecified; E55.9 Vitamin D deficiency, unspecified; I10 Essential (primary) hypertension
CPT/HCPCS: 36415; 80053; 80061; 82306; 84439; 84443; 84550

== ENCOUNTER 2023-11-06 13:35 | Emergency (ER) | payer BC, SELFPAY ==
[2023-11-06 14:00] VITALS: BP 158/97; PULSE 59; RESP 18; TEMP 36.8; O2SAT 97; BMI 31.8
--- NOTE | 2023-11-06 14:25 | EXP.UTC ---
Discharge Plan Disposition Patient Disposition: Home, Self-Care Condition: Good Prescriptions Prescriptions: No Action cholecalciferol (vitamin D3) 1,000 unit capsule 1,000 unit PO HS nabumetone 750 mg tablet 750 mg PO DAILY Patient Comments: TAKE 1 TABLET BY MOUTH TWICE DAILY NEEDED FOR ARTHRITIS PAIN lisinopril 20 mg tablet 20 mg PO DAILY oxybutynin chloride 5 mg tablet extended release 24hr 5 mg PO DAILY levothyroxine 75 mcg tablet 75 mcg PO DAILY Patient Comments: TAKE 1 TABLET BY MOUTH ONCE DAILY bisoprolol fumarate 5 mg tablet 5 mg PO DAILY Patient Comments: TAKE 1 TABLET BY MOUTH ONCE DAILY cyanocobalamin (vitamin B-12) 500 MCG tablet 500 mcg PO HS rizatriptan 10 mg tablet 10 mg PO DIRECTED Patient Comments: TAKE 1 TABLET BY MOUTH ONCE DAILY NEEDED sertraline 100 mg tablet 100 mg PO DAILY Patient Comments: TAKE 1 TABLET BY MOUTH ONCE DAILY fluticasone propionate [fluticasone propionate] 50 mcg/actuation spray,suspension 1 spray intranasal DAILY Qty: 9.9 0RF Referrals Follow up/Referrals: Dash Walton MD [Primary Care Provider] - See instructions Activity Restrictions/Add. Instructions Additional Instructions/Restrictions: Drink plenty of fluids. Take tylenol or ibuprofen for pain or fever. Take the medications as directed. Follow up with your regular doctor. GO TO THE ER FOR ANY WORSENING SYMPTOMS Clinical Impressions Clinical Impression: Sinusitis, Bronchitis Instructions Patient Instructions: DI for Sinusitis, Sinusitis Discharge ED Provider: Anderson Dyer [facility] General Stated complaint: cough congestion drainage [facility] Mode of Arrival: Ambulatory Source of Information: Patient Limitations: No Limitations Time Seen by Provider: 11/06/23 14:25 Description of Symptoms (Recalled from Triage Doc. by RN): Pt's symptoms are cough, drainage, sore throat, and fatigue. HEENT Symptoms (Recalled from RN notes): Yes Resp Symptoms (Recalled from RN notes): No Skin Symptoms (Recalled from RN notes): No MS Symptoms (Recalled from RN notes): No Functional Status (Recalled from RN notes): n/a History of Present Illness Provider Complaint: She states that for the past 5 days she has had sore throat, sinus congestion, and chest congestion. Related Data Home Medications Medication Instructions Recorded Confirmed cholecalciferol (vitamin D3) 25 1,000 unit PO HS Supplement 10/28/17 05/03/23 mcg (1,000 unit) capsule cyanocobalamin (vitamin B-12) 500 500 mcg PO HS Supplement 03/07/19 05/03/23 mcg tablet bisoprolol fumarate 5 mg tablet 5 mg PO DAILY 05/03/23 08/27/23 levothyroxine 75 mcg tablet 75 mcg PO DAILY 05/03/23 08/27/23 lisinopril 20 mg tablet 20 mg PO DAILY 05/03/23 08/27/23 nabumetone 750 mg tablet 750 mg PO DAILY 05/03/23 08/27/23 oxybutynin chloride 5 mg 5 mg PO DAILY 05/03/23 05/03/23 tablet,extended release 24 hr rizatriptan 10 mg tablet 10 mg PO DIRECTED 08/27/23 08/27/23 sertraline 100 mg tablet 100 mg PO DAILY 08/27/23 08/27/23 Previous Rx's Medication Instructions Recorded fluticasone propionate 50 1 spray intranasal DAILY #9.9 mL 08/27/23 mcg/actuation nasal spray,suspension Allergies Allergy/AdvReac Type Severity Reaction Status Date / Time Sulfa (Sulfonamide Allergy Mild I-HIVES Verified 11/06/23 14:21 Antibiotics) [SULFA (SULFONAMIDE ANTIBIOTICS)] Worker's Comp Is this a Worker's Comp case?: No [facility] Disclaimer: The information contained in this section may have been updated after the patient was seen, as this information can be updated by other users. Medical History (Reviewed 08/27/23 @ 11:23 by Lorri Garcia ([facility]), MANAGING COGNITIVE ENGINEER) Arthritis Hypertension Hypothyroidism Surgical History (Reviewed 08/27/23 @ 11:23 by Lorri [facility] MANAGING COGNITIVE ENGINEER) History of colonoscopy Social History Smoking Status: Never smoker alcohol intake: never substance use type: denies use current occupational status: other Travel in the last 8 weeks: None household members: family housing: house current occupational exposures/hazards: No caffeine: Yes ROS Obtained: Yes All systems reviewed & no additional complaints except as documented Constitutional Constitutional: Reports poor appetite Eyes Eyes: Reports system reviewed and no additional complaints, except as documented ENT Ears, Nose, Mouth, and Throat: Reports as per HPI Cardiovascular Cardiovascular: Reports system reviewed and no additional complaints, except as documented and Denies chest pain Respiratory Respiratory: Denies shortness of breath, Reports chest congestion, Reports cough, Denies stridor and Denies wheezing Gastrointestinal Gastrointestingal: Reports system reviewed and no additional complaints, except as documented; Denies abdominal pain, diarrhea or vomiting Musculoskeletal Musculoskeletal: Reports system reviewed and no additional complaints, except as documented and Denies arthralgias Integumentary/Breasts Skin/Breast: Reports system reviewed and no additional complaints, except as documented and Denies rash Neurologic Neurologic: Denies paresthesias Allergic/Immunologic Allergic/Immunologic: Denies wheezing Physical Exam General General appearance: alert and in no apparent distress Eye Eye exam: Present normal appearance, PERRL and EOMI ENT ENT exam: Present mucous membranes moist and normal external ear exam Expanded ENT Exam External ear exam: Present normal external inspection TM/Canal exam: Bilateral TM: erythema and bulging Nose exam: Absent sinus tenderness Nasal speculum exam: Bilateral: normal Mouth exam: Present normal external inspection; Absent drooling Teeth exam: Present normal inspection Throat exam: Present tonsillar erythema and tonsillomegaly Neck Neck exam: Present normal inspection, full ROM and trachea midline; Absent tenderness, lymphadenopathy or thyromegaly Chest Chest inspection: Present normal inspection and symmetric chest wall rise; Absent tenderness or rash Respiratory Respiratory exam: Present normal lung sounds bilaterally; Absent respiratory distress, wheezes, stridor or accessory muscle use Cardiovascular Cardiovascular exam: Present regular rate, normal rhythm and normal heart sounds Abdominal Exam Abdominal exam: Present soft; Absent distention, tenderness, guarding, rebound or rigidity Extremities Exam Extremities exam: Present normal inspection, full ROM and normal capillary refill; Absent tenderness or calf tenderness Back Exam Back exam: Present normal inspection and full ROM; Absent tenderness Neurological Exam Neurological exam: Present alert and oriented X3 Psychiatric Psychiatric exam: Present normal affect and normal mood Skin Skin exam: Present warm, dry, intact and normal color Lymphatic Lymphatic Findings: no adenopathy Medical Decision Making Medical Records Medical records reviewed: No I reviewed the patient's medical records. John Inquiry Pt receiving controlled substance: No Vital Signs: 11/06/23 14:00 Temperature 98.2 F Temperature Source Oral Pulse Rate [Right Radial] 59 L Respiratory Rate 18 Blood Pressure [Right Arm] 158/97 H Blood Pressure Mean [Right Arm] 117 Blood Pressure Source [Right Arm] Automatic Cuff Blood Pressure Position [Right Arm] Sitting 02 Sat by Pulse Oximetry 97 Oxygen Delivery Method Room Air Lab Data Lab results reviewed: Yes I reviewed the patient's lab results.
[2023-11-06 14:52] VITALS: BP 158/97; PULSE 59; RESP 18; TEMP 36.8; O2SAT 97
[2023-11-06 14:57] LABS: UTC Influenza A Antigen Negative (Negative); UTC Influenza B Antigen Negative (Negative); UTC Strep Screen (Rapid) Negative (Negative)
== END 2023-11-06 14:58 | disposition home or self-care (01) ==
PROVIDERS: Emergency Provider Nurse Practitioner Family; PCP Family Medicine
DX: J20.9 Acute bronchitis, unspecified (principal); J01.90 Acute sinusitis, unspecified; R07.0 Pain in throat; R05.9 Cough, unspecified; R09.81 Nasal congestion; R09.89 Other specified symptoms and signs involving the circulatory and respiratory systems; I10 Essential (primary) hypertension; E03.9 Hypothyroidism, unspecified
CPT/HCPCS: 87804; 87880; 99212; 99214; G0463

== ENCOUNTER 2024-01-16 16:22 | Outpatient (CLI) | payer BC, SELFPAY ==
--- NOTE | 2024-01-16 | MM_ITS ---
PROCEDURE INFORMATION: Exam: MG Bilateral Screening 3D Mammography Exam date and time: 01/16/2024 4:18 PM Age: 58 years old Clinical indication: Screening mammogram TECHNIQUE: Imaging protocol: Bilateral Screening tomosynthesis and 2D mammography including computer-aided detection (CAD) when performed. COMPARISON: 1. MG MM DIG SCREENING MAMM BI W/CAD 12/10/2022 3:26 PM 2. MG MM DIG SCREENING MAMM BI W/CAD 12/02/2021 4:16 PM 3. MG MM DIG SCREENING MAMM BI W/CAD 11/28/2020 1:37 PM 4. MG MM DIG MAMM DX UNILAT LT CAD 06/16/2020 2:07 PM FINDINGS: MAMMOGRAPHY: Breast composition: There are scattered areas of fibroglandular density. Mass: None. Architectural distortion: No new or suspicious architectural distortion. Calcifications: No new or suspicious calcifications are present Asymmetric density: No new or suspicious asymmetric density is present Skin thickening: None. Axillary adenopathy: None. IMPRESSION: No mammographic evidence of malignancy. Recommend annual screening mammography unless otherwise clinically indicated. ASSESSMENT: BI-RADS category 1: Negative.
== END 2024-01-16 23:59 | disposition home or self-care (01) ==
LOC: RAD 16:23
PROVIDERS: PCP Physician Assistant; Visit Provider Physician Assistant
DX: Z12.31 Encounter for screening mammogram for malignant neoplasm of breast (principal)
CPT/HCPCS: 77063; 77067

== ENCOUNTER 2024-01-31 14:20 | Outpatient (CLI) | payer BC, SELFPAY ==
--- NOTE | 2024-01-31 | CA_ITS ---
APPROVED REPORT EXAM: Comprehensive 2D, Doppler, and color-flow Echocardiogram Farmworker Poultry: DANY Mcdaniels, RVS Ht: 5 ft 9 in Wt: 215lbs BSA: 2.13 BP: 119/72 mmHg Indications: HTN, SOA, BRADYCARDIA 2D Dimensions Left Atrium 3.69 cm F: 2.7 - 3.8 LA Volume 58.80 mL LA Volume Index [id number] mL/m2 (M/F) 16-34 EF AP4 62.20 % GL Strain -28.2 % M-Mode Dimensions RVDd 1.89 cm (0.9-2.6) LA Diam 3.87 cm (1.9-4.0) LVDd 6.10 cm (3.5-5.7) LVDs 4.53 cm (3.5-5.7) IVSd 1.28 cm (0.6-1.1) PWd 1.00 cm (0.6-1.1) EF (Teich) 49.80% EPSs 0.28 cm FS 25.70% EDV (Teich) 186.90 mL TAPSE 2.42 (<1.7) ESV (Teich) 93.90 mL LV Diastology E Decel Time 233 (160-240 msec) E/A Ratio 1.38 MED A' 7.60 cm/s LAT A' 6.00 cm/s Aortic Valve LESLIE Index 1.13 cm2/m2 AoV Peak Tamir. 160.0 (50-130 cm/s) AO Peak GR. 10.20 mmHg AO Mean GR. 5.70 (<5 mmHg) AO VTI 37.4 (18-25 cm) LESLIE (VTI) 2.47 (2.5-4.5 cm2) Mitral Valve MV A Velocity 66.0 (40-130 cm/s) E/A Ratio 1.38 Pulmonary Valve PV Peak Velocity 72.0 (50-150 cm/s) Left Ventricle The left ventricle is normal size. The left ventricular systolic function is normal. The left ventricular ejection fraction is within the normal range. There is increased LV wall thickness. There is normal LV segmental wall motion. The left ventricular diastolic function is normal. LVEF is 60%. Right Ventricle The right ventricle is normal size. The right ventricular systolic function is normal. Atria The left atrium size is normal. The right atrium size is normal. There is no Doppler evidence of interatrial shunt. Aortic Valve The aortic valve is mildly thickened. There is no aortic valvular stenosis. No aortic regurgitation is present. Mitral Valve The mitral valve is normal in structure. No evidence of mitral valve stenosis. Mild mitral regurgitation. Tricuspid Valve The tricuspid valve leaflets are thin and pliable. Trace tricuspid regurgitation. There is insufficient TR jet to estimate RVSP. Pulmonic Valve The pulmonary valve is normal in structure. Trace pulmonic regurgitation. Great Vessels The aortic root is normal in size. The ascending aorta is not well visualized. IVC is normal in size and collapses >50% with inspiration. Pericardium There is no pericardial effusion. Other Information Study Quality: Fair Conclusion Normal biventricular systolic function (LVEF 60%). Mild MR. Electronically signed by : Елена Cavazos MD 02/04/2024 23:27:23
== END 2024-01-31 23:59 | disposition home or self-care (01) ==
PROVIDERS: PCP Physician Assistant; Visit Provider Physician Assistant
DX: R06.02 Shortness of breath (principal)
CPT/HCPCS: 93306

== ENCOUNTER 2024-06-08 16:14 | Outpatient (CLI) | payer BC, SELFPAY ==
[2024-06-08 18:16] LABS: Vitamin B12 478 pg/mL (239-931)
[2024-06-08 20:16] LABS: Hemoglobin A1C 5.6 % (4.0-6.0)
[2024-08-02 15:57] LABS: Miscellaneous Test SCANNED IMAGE
== END 2024-06-08 23:59 | disposition home or self-care (01) ==
LOC: LAB 16:14
PROVIDERS: PCP Physician Assistant; Visit Provider Physician Assistant
DX: E53.8 Deficiency of other specified B group vitamins (principal); R73.01 Impaired fasting glucose; Z84.81 Family history of carrier of genetic disease
CPT/HCPCS: 36415; 82607; 83036

== ENCOUNTER 2024-07-28 11:37 | Emergency (ER) | payer BC, SELFPAY ==
[2024-07-28 13:22] VITALS: BP 117/82; PULSE 57; RESP 18; TEMP 36.6; O2SAT 98; BMI 31.8
--- NOTE | 2024-07-28 14:10 | ED_ITS ---
Discharge Plan Disposition Patient Disposition: Home, Self-Care Condition: Good Prescriptions Prescriptions: New azithromycin 250 mg tablet See Rx Instructions .ROUTE .COMPLEX Qty: 6 0RF Rx Instructions: For 250 mg dose pack: take 500 mg today (day 1), then 250 mg for 4 days (days 2-5) benzonatate 100 mg capsule 100 mg PO TID PRN (Reason: cough) Qty: 30 0RF No Action cholecalciferol (vitamin D3) 1,000 unit capsule 1,000 unit PO HS nabumetone 750 mg tablet 750 mg PO DAILY Patient Comments: TAKE 1 TABLET BY MOUTH TWICE DAILY NEEDED FOR ARTHRITIS PAIN lisinopril 20 mg tablet 20 mg PO DAILY oxybutynin chloride 5 mg tablet extended release 24hr 5 mg PO DAILY levothyroxine 75 mcg tablet 75 mcg PO DAILY Patient Comments: TAKE 1 TABLET BY MOUTH ONCE DAILY bisoprolol fumarate 5 mg tablet 5 mg PO DAILY Patient Comments: TAKE 1 TABLET BY MOUTH ONCE DAILY cyanocobalamin (vitamin B-12) 500 MCG tablet 500 mcg PO HS rizatriptan 10 mg tablet 10 mg PO DIRECTED Patient Comments: TAKE 1 TABLET BY MOUTH ONCE DAILY NEEDED sertraline 100 mg tablet 100 mg PO DAILY Patient Comments: TAKE 1 TABLET BY MOUTH ONCE DAILY fluticasone propionate [fluticasone propionate] 50 mcg/actuation spray,suspension 1 spray intranasal DAILY Qty: 9.9 0RF azithromycin [Zithromax] 250 mg tablet 250 mg PO UD DOSE PK Qty: 6 0RF Rx Instructions: Take two (2) tablets today, then one (1) tablet days #2 thru #5 methylprednisolone 4 mg Tablets,Dose Pack 4 mg PO DIRECTED 6 Days Qty: 21 0RF Rx Instructions: Take 1 pack as directed for 6 days guaifenesin [Mucinex] 600 mg tablet extended release 12hr 600 - 1,200 mg PO BIDP PRN (Reason: Congestion) Qty: 30 0RF Referrals Follow up/Referrals: Shannon Soto PA [Primary Care Provider] - See instructions Activity Restrictions/Add. Instructions Additional Instructions/Restrictions: Take medication as prescribed. Increase fluids and rest. Follow up with PCP after completion of antibiotic/or if symptoms persist or worsen. Return to ER if you become short of air. Clinical Impressions Clinical Impression: Acute lower respiratory infection Acute low back pain Qualifiers: Back pain laterality: bilateral Sciatica presence: without sciatica Qualified C ode(s): M54.5 - Low back pain Instructions Patient Instructions: DI for Low Back Pain, Managing Chronic Low Back Pain, Acute Bronchitis Print Language Print Language: Peruvian Discharge ED Provider: Nicol Spicer [facility] [place] HPI General Stated complaint: cough, congestion, sinus congestion, pain low back Mode of Arrival: Ambulatory Source of Information: Patient Time Seen by Provider: 07/28/24 14:09 Description of Symptoms (Recalled from Triage Doc. by RN): LOW BACK PAIN, COUGH, SINUS PRESSURE/HEADACHE HEENT Symptoms (Recalled from RN notes): Yes Resp Symptoms (Recalled from RN notes): Yes Skin Symptoms (Recalled from RN notes): No MS Symptoms (Recalled from RN notes): No Functional Status (Recalled from RN notes): WNL Related Data Home Medications ?Medication ?Instructions ?Recorded ?Confirmed cholecalciferol (vitamin D3) 25 1,000 unit PO HS Supplement 10/28/17 05/03/23 mcg (1,000 unit) capsule cyanocobalamin (vitamin B-12) 500 500 mcg PO HS Supplement 03/07/19 05/03/23 mcg tablet bisoprolol fumarate 5 mg tablet 5 mg PO DAILY 05/03/23 08/27/23 levothyroxine 75 mcg tablet 75 mcg PO DAILY 05/03/23 08/27/23 lisinopril 20 mg tablet 20 mg PO DAILY 05/03/23 08/27/23 nabumetone 750 mg tablet 750 mg PO DAILY 05/03/23 08/27/23 oxybutynin chloride 5 mg 5 mg PO DAILY 05/03/23 05/03/23 tablet,extended release 24 hr rizatriptan 10 mg tablet 10 mg PO DIRECTED 08/27/23 08/27/23 sertraline 100 mg tablet 100 mg PO DAILY 08/27/23 08/27/23 Previous Rx's ?Medication ?Instructions ?Recorded fluticasone propionate 50 1 spray intranasal DAILY #9.9 mL 08/27/23 mcg/actuation nasal spray,suspension azithromycin 250 mg tablet 250 mg PO UD DOSE PK #6 tabs 11/06/23 (Zithromax) guaifenesin 600 mg tablet, 600 - 1,200 mg (1 - 2 x 600 mg) PO 11/06/23 extended release 12 hr (Mucinex) BIDP PRN Congestion #30 tabs methylprednisolone 4 mg tablets in 4 mg PO DIRECTED 6 days #21 tabs 11/06/23 a dose pack azithromycin 250 mg tablet See Rx Instructions PO .COMPLEX #6 07/28/24 tabs benzonatate 100 mg capsule 100 mg PO TID PRN cough #30 caps 07/28/24 Allergies Allergy/AdvReac Type Severity Reaction Status Date / Time Sulfa (Sulfonamide Allergy Mild I-HIVES Verified 11/06/23 14:21 Antibiotics) [SULFA (SULFONAMIDE ANTIBIOTICS)] Worker's Comp Is this a Worker's Comp case?: No [facility] Disclaimer: The information contained in this section may have been updated after the patient was seen, as this information can be updated by other users. Medical History , [employer]) Arthritis Hypertension Hypothyroidism Surgical History , [employer]) History of colonoscopy Social History Smoking Status: Never smoker alcohol intake: never substance use type: denies use current occupational status: other Travel in the last 8 weeks: None household members: family housing: house current occupational exposures/hazards: No caffeine: Yes ROS Obtained: Yes All systems reviewed & no additional complaints except as documented Constitutional Constitutional: Reports system reviewed and no additional complaints, except as documented, Reports headache(s) and Reports malaise Eyes Eyes: Reports system reviewed and no additional complaints, except as documented ENT Ears, Nose, Mouth, and Throat: Reports system reviewed and no additional complaints, except as documented, Reports headache(s), Reports nasal discharge, Reports sinus pain and Reports sinus pressure Cardiovascular Cardiovascular: Reports system reviewed and no additional complaints, except as documented Respiratory Respiratory: Reports system reviewed and no additional complaints, except as documented and Reports cough Gastrointestinal Gastrointestingal: Reports system reviewed and no additional complaints, except as documented Genitourinary Female Genitourinary: Reports system reviewed and no additional complaints, except as documented Musculoskeletal Musculoskeletal: Reports system reviewed and no additional complaints, except as documented, Reports back pain and Reports myalgias Integumentary/Breasts Skin/Breast: Reports system reviewed and no additional complaints, except as documented Neurologic Neurologic: Reports system reviewed and no additional complaints, except as documented and Reports headache(s) Endocrine Endocrine: Reports system reviewed and no additional complaints, except as documented Hematologic/Lymphatic Henatologic/Lymphatic: Reports system reviewed and no additional complaints, except as documented Allergic/Immunologic Allergic/Immunologic: Reports system reviewed and no additional complaints, except as documented Physical Exam General General appearance: alert and in no apparent distress Head Head exam: atraumatic and normocephalic Eye Eye exam: Present normal appearance ENT ENT exam: Present mucous membranes moist Expanded ENT Exam External ear exam: Present normal external inspection Nose exam: Present sinus tenderness Nasal speculum exam: Bilateral: normal Mouth exam: Present normal external inspection Teeth exam: Present normal inspection Throat exam: Present normal inspection Neck Neck exam: Present normal inspection Chest Chest inspection: Present normal inspection and symmetric chest wall rise Respiratory Respiratory exam: Present other Expanded Respiratory Exam Location: Left: rales and Lower: rales Cardiovascular Cardiovascular exam: Present regular rate and normal rhythm Abdominal Exam Abdominal exam: Present soft Back Exam Back exam: Present muscle spasm, paraspinal tenderness (L4-S1), vertebral tenderness (L4-S1), sciatic notch tenderness (R) and sciatic notch tenderness (L) Neurological Exam Neurological exam: Present alert and oriented X3 Psychiatric Psychiatric exam: Present normal affect and normal mood Skin Skin exam: Present warm, dry and intact Lymphatic Lymphatic Findings: no adenopathy Medical Decision Making Medical Records Screening: Per USPSTF and CDC recommendations, given the prevalence of disease in our fransisca on, it is our hospital?s policy to screen for HIV and viral Hepatitis for all patients aged 18 and over and those with ongoing risk factors. Jonh Inquiry Pt receiving controlled substance: No John was queried for this patient: No Vital Signs: 07/28/24 13:22 Temperature 97.9 F Temperature Source Oral Pulse Rate [Left Radial] 57 L Respiratory Rate 18 Blood Pressure [Left Arm] 117/82 Blood Pressure Mean [Left Arm] 93 02 Sat by Pulse Oximetry 98
[2024-07-28] MEDS: DEXAMETHASONE 4MG/ML 1ML VIAL 4 MG IM (14:32)
[2024-07-28 14:41] VITALS: BP 117/82; PULSE 57; RESP 18; TEMP 36.6
== END 2024-07-28 14:47 | disposition home or self-care (01) ==
PROVIDERS: Emergency Provider Nurse Practitioner Family; PCP Physician Assistant
DX: J06.9 Acute upper respiratory infection, unspecified (principal)
CPT/HCPCS: 96372; 99213; G0381; J1100

== ENCOUNTER 2025-02-26 15:11 | Outpatient (CLI) | payer BC, SELFPAY ==
--- OUTSIDE RECORDS SUMMARY | 2025-02-26 15:13 | XMS_ITS | Data Portability ---
Author Organization JESSE VIK [facility] Address [address] [facility] [address] [place] [address] Care Team Providers Care Septic Tank Servicer Name Role Phone TC FONSECA Primary Care Provider [phone] TC FONSECA Referring Provider [phone] Assessment Encounter Date Assessment Date Assessment LastModified by Organization Details LastModified Time 09/24/2021 09/24/2021 Patient can gradually resume activity with the left hand as tolerated at this time. I discussed scar massage with patient in clinic today. Patient will follow-up in 4 weeks for final postoperative assessment, but will call in the interim with any additional questions or concerns. In regards to her right hand, she is doing well at this time with minimal symptoms. Continue to monitor and treat as needed should symptoms worsen over time. [email or web address] Not available 09/24/2021 18:50:04 10/22/2021 10/22/2021 Patient with inflammatory symptoms in the hand at this time. I am providing her with a prescription for a steroid Dosepak. I am also referring her to therapy as well. Continue deep scar massage. Follow-up in 6 weeks for repeat assessment. [email or web address] Not available 10/22/2021 16:52:03 12/08/2023 12/08/2023 X-rays of the left thumb/wrist reviewed, independently assessed, and personally discussed with the patient. Findings consistent with thumb CMC arthritis, which corresponds to her exam findings today as well. In regards to patient's thumb CMC arthritis, I explained the natural history of arthritis as well as my approach to management beginning first with conservative treatment and then progressing to surgery only if all conservative measures fail. Thus, my recommendation was for intermittent use of anti-inflammatory medication as needed, unless GI symptoms develop. Recommended use of thumb spica splint, which was provided in the office today. Given the severity of the symptoms, I also offered a corticosteroid injection, which the patient agreed to in clinic today. Patient will return to clinic in 6 weeks for repeat assessment, but can call to cancel the visit should symptoms have resolved by that time. [email or web address] Not available 12/08/2023 16:48:51 12/19/2023 12/19/2023 Assessment: Lt shoulder adhesive capsulitis Plan: We discussed the anatomy of the shoulder and etiology of adhesive capsulitis. We discussed the 4 phases of frozen shoulder and I assured her most cases resolve within a year. We discussed CSI to reduce inflammation. After discussing CSI, she would like to move forward with this in the office today. I injected her left shoulder. She tolerated the procedure well. Keep elbows in to minimize pain. F/U as needed. [email or web address] Not available 12/19/2023 16:47:53 Plan of Treatment Reminders Order Date Submit Date Provider Last Modified By Organization Details Last Modified Time Details Appointments FOLLOW UP [facility] 2024 10:20A M ALIREZA DANIELS PA-C Not available Not available Not available Lab None recorded. Referral None recorded. Procedures None recorded. Surgeries None recorded. Imaging None recorded. Medication Orders prednison e 10 mg tablets in a dose pack 2021 022 [email or web address] [facility], [address], [address], 12/08/2023 16:02:41 Patient TargetsNo targets recorded. Patient InstructionsNo instructions recorded. Reason for Referral None Reported. Results Created Date Observation Date Name Description Value Unit Range Abnormal Flag Note LastModifiedBy Organization Detail LastModifiedTime 12/08/19 24 12/08/2023 XR, wrist , 3 or more view [place] [facility] [address] [address] Keerthi aguero Name: JHOANA ROBLES Keerthi aguero : 964 Keerthi aguero Orderi ng Provid er: KENDY TURNER EXAM DATE: 2023 EXAM: XR LT WRIST COMPLE TE HISTOR Y: Left wrist pain withou t trauma COMPAR KRISTEL: None. FINDIN GS: The bones of the left wrist are normal in alignm ent. There is no eviden ce of fractu re. There are mild degene rative change s. There is mild margin al spurri ng in the first carpom etacar pal joint, trisca phe joint and radioc arpal joint. There is a lytic lesion projec ting along the distal radial shaft which measur es approx imatel y 7 mm cranio caudad . IMPRES ISMAEL: 1. There are mild degene rative change s in the left wrist. 2. There is a nonspe cific lytic lesion along the distal radial shaft. Interp reted By: Micheal barragan MD Electr onical ly Signed By: Micheal barragan MD on 024 4:[address] [facility] [place] [address], [place], [address], 12/09/2023 12:31:43 12/19/19 24 12/19/2023 XR, shoul pamella, 2 or more view [place] [facility] [address] [place] [address] Keerthi aguero Name: JHOANA aguero : [address] Orderi ng Provid er: IBETH TABARES EXAM DATE: 2023 EXAM: XR LT SHOULD ER COMPLE TE RADIOG RAPHIC VIEWS: 3 COMPAR KRISTEL: None. HISTOR Y: Left should er pain. FINDIN GS: The bones of the should er are normal in alignm ent. There is no eviden ce of fractu re. There is mild degene rative change s at the acromi oclavi cular joint and along the glenoh umeral joint. The acromi oclavi cular and coraco clavic ular spacin g is normal . The visual ized left ribs and left lung appear s normal . IMPRES ISMAEL: 1. There are mild degene rative change s in the left should er. Interp reted By: Micheal barragan MD [facility] onical ly Signed By: Micheal barragan MD on 4:[address] [facility] [place] [address], [place], [address], 01/19/2024 08:35:24 12/19/19 24 12/19/2023 XR, shoul pamella, 2 or more view [facility] [address] [facility] [place] [address] Patioamr t Name: JHOANA aguero : 89 Keerthi t Orderrusty ng Provid er: IBETH TABARES AM EXAM DATE: 2023 EXAM: XR RT SHOULD ER COMPLE TE RADIOG RAPHIC VIEWS: 3 COMPAR KRISTEL: 10/01/19 21 HISTOR Y: Right should er pain. FINDIN GS: The bones of the should er are normal in alignm ent. There is no eviden ce of fractu re. There is mild degene rative change s at the acromi oclavi cular joint and along the glenoh umeral joint. The acromi oclavi cular and coraco clavic ular spacin g is normal . The visual ized right ribs and right lung appear s normal . IMPRES ISMAEL: 1. There are mild degene rative change s in the right should er. Interp reted By: Micheal barragan MD [facility] onical ly Signed By: Micheal barragan MD on 4:[email or web address] Rad[facility] [place] [address], [place], [address], 01/19/2024 08:35:25 01/02/20 24 01/02/2024 MRI, wrist , w/wo contr ast [facility] [address] [place] [address], [place] [address] Patiomar t Name: JHOANA aguero : 89 [address] Orderi ng Provid er: KENDY TURNER EXAM DATE: 2023 EXAM: MR LT WRIST W/WO CONTRA ST HISTOR Y: 58-yea r-old female with left wrist pain and prior carpal tunnel releas e. COMPAR KRISTEL: 024 FINDIN GS: The carpal bones are normal in alignm ent. There is ulnar minus varian ce in the wrists . There are mild degene rative change s in the radioc arpal joint and base of the thumb. There are mild degene rative change s in the distal radiou lnar joint. No fractu re is identi fied. The scapho lunate and lunotr iquetr al ligame nts appear normal . The TFCC is normal in appear ance. The flexor and extens or tendon s of the wrist are intact . There is no tendon tear. There is a small amount of fluid adjace nt to the extens or digito rum tendon s and the extens or carpi radial is brevis and longus tendon s. There is strand ing along the flexor retina culum consis tent with prior surger y. The muscle s of the wrist appear normal . There is a small lytic focus along the volar aspect of the distal radial shaft. This repres ents an old fibrou s cortic al defect . After intrav enous admini strati on of [address] ([facility] [id number] 2), there is no abnorm al enhanc ement in the wrist. IMPRES ISMAEL: 1. There are mild degene rative change s in the left wrist with ulnar minus varian ce. 2. There is an old fibrou s cortic al defect along the distal radial shaft. Interp reted By: Micheal barragan MD Electr onical ly Signed By: Micheal barragan MD on 01/02/20 24 12:[address] [facility] Radiology [facility] [address] [facility], [place], [address], 01/03/2024 17:22:33 Result Notes None recorded. Problems Name Problem SNOMED Code Status Onset Date Resolution Date Notes Provider Name and Address Organization Details Recorded Time Abnormal weight gain 605692578 Active 2015 From Automated Load;Provi pamella: Martin Castañeda;Stat us: Active Not Available [facility] 7 02:45:36 Spasm 20711502 Active 2015 From Automated Load;Provi pamella: Martin Castañeda;Stat us: Active Not Available [facility] 7 06:58:46 Hypothyro idism 11682082 Active 2014 From Automated Load;Provi pamella: Martin Castañeda;Stat us: Active Not Available [facility] 6 11:41:19 Autoimmun e thyroidit is 95827328 Active 2014 From Automated Load;Provi pamella: Martin Castañeda;Stat us: Active Not Available [facility] 6 11:41:19 Paresthes ia of skin Active 2015 From Automated Load;Provi pamella: Qiana Barger;Stat us: Active Not Available [facility] 6 11:41:19 Idiopathi c progressi ve polyneuro marisol 91983788 Active 2015 From Automated Load;Provi pamella: Qiana Barger;Stat us: Active Not Available [facility] 6 11:41:19 High antibody titer 813020469 Active 2015 From Automated Load;Provi pamella: Qiana Barger;Stat us: Active Not Available [facility] 6 11:41:19 Carpal tunnel syndrome 54573595 Active 2015 From Automated Load;Provi pamella: Qiana Barger;Stat us: Active Not Available [facility] 6 11:41:19 Problem Notes None recorded. Procedures Surgical History Date Name Laterality Status Provider Name and Address Organization Details Recorded Time 024 Injection Joint/Bursa, Major completed Reji MOLINA - [facility] 12/19/2023 16:45:59 024 Injection Joint/Bursa, Interm completed Sushil [facility]OLINA [facility] 12/08/2023 16:45:57 021 Carpal Tunnel Release, Marsha - Piedad completed RUDY TURNER MD [address] [place] [address], [phone], [facility] 09/09/2021 07:56:18 021 Lumbar Medial Branch Blocks completed ELIZA DURBIN MD [facility] [place], [address], [facility] 06/04/2021 13:33:49 021 Electromyography (EMG) with Nerve Conduction Study (NCV) completed Hays (Camille) [facility] 04/07/2021 10:19:47 021 Injection Joint/Bursa, Major completed ESTELA SHAW MD [address] [place] [address], [phone], [facility] 10/15/2020 10:19:27 021 Injection Joint/Bursa, Interm completed RUDY TURNER MD [address] [place] [address], [phone], [facility] 09/30/2020 13:12:51 019 Injection Carpal Tunnel completed RUDY TURNER MD [address] [place] [address], [phone], [facility] 01/04/2019 09:04:02 019 Injection Joint/Bursa, Interm completed RUDY TURNER MD [address] [place] [address], [address], [facility] 12/06/2018 16:44:38 018 Op Note completed RUDY TURNER MD [address] [place] [address], [phone], [facility] 04/28/2018 08:42:03 018 Electromyography (EMG) with Nerve Conduction Study (NCV) completed Lis Davis (Camille) [facility] 04/17/2018 12:10:22 Hysterectomy completed Kelly Chacon [facility] 05/13/2017 14:12:21 Tubal Ligation completed Kelly Chacon [facility] 05/13/2017 14:12:25 Shoulder Surgery completed Kelly Chacon [facility] 05/13/2017 14:12:31 Imaging Results None recorded. Procedure Notes None recorded. Medical Equipment None Reported. Allergies Allergen ID Allergen Name Allergen Category Reaction Reaction Severity Criticality Documentation Date Start Date Code Code System Note Provider Name and Address Organization Details Recorded Time 753601 Substance with sulfonami de structure and antibacte rial mechanism of action (substanc e) medicatio n Not available Not available Not available 08/19/20162010 18633 8003 SNOMED Comme nt: Creat ed By: Israel caponeCre ated Date: 2010 3:07: 26 PM; Not Available [facility] 6 13:31:09 Medications Name Sig Start Date Stop Date Status Note LastModified by Organization Details LastModified Time cyclobenz aprine 10 mg tablet Bedtime active Duration : 30 days;Ins truction s: take 1/2 to 1 tab 1-2 hrs before bedtime; Frequenc y: hs;Alt Frequenc y: prn;Medi cation Descript ion: cycloben zaprine; Dosage:a s directed ; Route:or al; refills: 3; Quantity :30 tablet Not Available Not Available Not Available Neurontin 300 mg capsule 1 qam and 2 Every night at bedtime 04/11 completed Not Available Not Available Not Available Multiple Vitamin capsule Daily 04/11 completed Duration : 30 days;Kali quency: daily;Me dication Descript ion: multivit eric; Dosage:1 ; Route:or al; refills: 3; Quantity :100 capsule Not Available Not Available Not Available prednison e 5 mg tablet take one po tid x 1 week; one po bid x 1 week; one po daily x 1 week 12/07 completed Not Available Not Available Not Available Maxalt 10 mg tablet active Instruct ions: for migraine s;Alt Frequenc y: prn;Medi cation Descript ion: rizatrip serna; Dosage:1 ; Route:or al; refills: 5 Not Available Not Available Not Available tramadol 50 mg tablet TAKE 1 TABL PO Q 4-6 HRS PRN FOR SEVERE POST SURGICAL PAIN 10/22 completed Not Available Not Available Not Available prednison e 10 mg tablets in a dose pack Take 1 dose pk by oral route as directed . 12/07 completed Not Available Not Available Not Available Celebrex 200 mg capsule Take 1 capsule twice a day by oral route for 90 days. 12/07 completed Not Available Not Available Not Available Requip 0.5 mg tablet Daily 12/07 completed Frequenc y: daily;Me dication Descript ion: ropiniro le; Dosage:1 ; Route:or al; refills: 0 Not Available Not Available Not Available Neurontin 100 mg capsule TAKE 1 CAPSULE PO QHS FOR 1 WEEK 10/22 completed Not Available Not Available Not Available Lipoic Acid 100 mg capsule Daily 04/11 completed Frequenc y: daily;Me dication Descript ion: alpha-li poic acid; Dosage:2 ; Route:or al; refills: 0 Not Available Not Available Not Available Synthroid 50 mcg tablet Daily 12/07 completed Frequenc y: daily;Me dication Descript ion: levothyr oxine; Dosage:1 ; Route:or al; refills: 0 Not Available Not Available Not Available lisinopri l 20 mg-hydroc hlorothia zide 25 mg tablet Daily active Frequenc y: daily;Me dication Descript ion: hydrochl orothiaz yoshi-carlos nopril; Dosage:1 ; Route:or al; refills: 0 Not Available Not Available Not Available magnesium 250 mg tablet Take 1 tablet every day by oral route. active Not Available Not Available No t Available Keystone 5 mg-325 mg tablet TAKE 1-2 PO Q4-6H PRN SEVERE POST OPERATIV E PAIN. DO NOT EXCEED 10 T IN 24 HOURS 06/07 completed Not Available Not Available Not Available sertralin e 50 mg tablet Take 1 tablet every day by oral route. 12/07 completed Not Available Not Available Not Available Lexapro 20 mg tablet Daily 04/07 completed Frequenc y: daily;Me dication Descript ion: escitalo pram; Dosage:1 ; Route:or al; refills: 0 Not Available Not Available Not Available Premarin 0.625 mg tablet Daily 04/07 completed Frequenc y: daily;Me dication Descript ion: conjugat ed estrogen s; Dosage:a s directed ; Route:or al; refills: 0 Not Available Not Available Not Available sertralin e active Not Available Not Available Not Available Vitamin B-12 Daily active Duration : 10 days;Kali quency: daily;Me dication Descript ion: cyanocob alamin; Dosage:1 ; refills: 0; Quantity :30 Not Available Not Available Not Available nabumeton e active Not Available Not Available Not Available Synthroid active Not Available Not Gloria ilable Not Available potassium active Not Available Not Gloria ilable Not Available Vitamin D3 Daily active Frequenc y: daily;Me dication Descript ion: cholecal ciferol; Dosage:1 ; Route:or al; refills: 0 Not Available Not Available Not Available Probiotic Formula 10 billion cell(2 billion ea) capsule 04/11 completed Medicati on Descript ion: bifidoba cterium- lactobac illus; Route:or al; refills: 0 Not Available Not Available Not Available Vitals Date Recorded Body height Body mass index (BMI) Body weight Provider Name and Address Organization Details Last Updated DateTime 10/22/2021 172.72 cm 33.5 kg/m2 81142.32 g Samantha Lorna [facility] 10/22/2021 15:37:47 Date Recorded Body height Body mass index (BMI) Body weight Provider Name and Address Organization Details Last Updated DateTime 12/08/2023 172.72 cm 33.5 kg/m2 44433.32 g Shant [facility] 12/08/2023 16:01:46 Date Recorded Body height Body mass index (BMI) Body weight Provider Name and Address Organization Details Last Updated DateTime 12/19/2023 175.26 cm 32.5 kg/m2 76605.32 g Ursula Fitzgeralddylan [facility] 12/19/2023 15:53:28 Date Recorded Body height Body mass index (BMI) Body weight Provider Name and Address Organization Details Last Updated DateTime 09/24/2021 172.72 cm 33.5 kg/m2 19910.32 g Mook Piña [facility] 09/24/2021 08:50:00 Social History Question Answer Notes LastModified by Organizat ion Details LastModified Time Tobacco Smoking Status [facility] 05/13/2017 14:12:08 How Much Tobacco Do You Chew? None [email or web address] Information not available 04/07/2021 Which Of Your Hands Is Dominant? Right Information not available 04/25/2018 Live Alone Or With Others? With Others Information not available 05/13/2017 Which Hand Is Involved? Bilateral Information not available 04/25/2018 Marital Status MAC [email or web address] Informatio n not available 04/11/2018 What Was The Date Of Your Most Recent Tobacco Screening? 05/19/2021 [email or web address] Information not available 05/19/2021 How Much Tobacco Do You Smoke? No [email or web address] Information not available 04/11/2018 How Many Years Have You Smoked Tobacco? 0 [email or web address] Information not available 04/07/2021 Sex: Female Functional Status Question Answer Note LastModified by Organizat ion Details LastModified Time What is your level of alcohol consumption? None Information not available 05/13/2017 Do you or have you ever used smokeless tobacco? Never used smokeless tobacco [email or web address] Information not available 04/07/2021 What is your occupation? Retired Teacher Information not available 05/13/2017 Do you or have you ever used e-cigarettes or vape? Never used electronic cigarettes Information not available 04/07/2021 Mental Status None recorded. Family History Relationship Description Onset Age of this Age Resolved Age Notes LastModified by Organization Details LastModified Time Mother Family history of malignant neoplasm [email or web address] Not available 14:11:27 Mother Diabetes mellitus [email or web address] Not available 14:11:31 Father Heart disease [email or web address] Not available 14:11:40 Father Hypertensive disorder [email or web address] Not available 14:11:47 Father Cerebrovascu lar accident [email or web address] Not available 05/13/2017 14:11:56 Paternal Grandmother Heart disease [email or web address] Not available 14:11:40 Paternal Grandfather Hypertensive disorder [email or web address] Not available 14:11:47 Maternal Grandfather Parkinson's disease [email or web address] Not available 14:11:53 Medical History Condition Response Diabetes N Bleeding Disorder N Arthritis Y Emphysema N Acid Reflux (GERD) Y Migraines Y Stroke Y Asthma N COPD N Depression Y Heart Disease N Included as Review of Systems Y Rheumatoid Arthritis N Hypertension Y Gynecological HistoryNo gynecological history recorded. 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 Continue Neurontin - increase dose to 300 mg qam and 600 mg qhs - LTCSA terms discussed and contract signed- OPAL reviewed2. Continue ALA - dose should 600 mg daily, MVI daily, B12 500 mcg, vit D and add B-complex3 .Repeat ANA4. Continue Requip 0.5 mg for RLS per Dr. Ledesma 5. Consider adding Cymbalta. 6. No neck pain. If she does develop neck pain, low threshold to image given exam with brisk reflexes.7 . Wear wrist splints at night. Focus on keeping her arms straight at night.8. Counseled extensivel y on underlying causes of neuropathy , treatment depending upon cause, results of her previous w/u, medical management and importance of diet, exercise, supplement s for nerve health.9. RTC 6 months or sooner PRN. CC: Ana Ledesma MD. Vitamin D deficiency 347 68100 E55.9 on supplement ation vit D3 5000 u daily (was on 2000 u daily with sub optimal level at 41)recomme nd she continue at this dose continue MVI daily with calcium Vitamin B1 2 deficiency (non anemic) 57553632 E53.8 on supplement ation 500 mcg SL daily which has kept her level > 500continu e this dose continue MVI daily >40 min office visit with > 50% in counseling and coordinati on of care [id number] ESTELA PERKINS MD NEUROLOGY [facility] [address] [place] [address] 04/11/2018 10:25:01 04/11/2018 11:18:15 Idiopathic progressive polyneuropathy 01354014 G60.3 [id number] ESTELA PERKINS MD NEUROLOGY [facility] [address] [place] [address] 04/17/2018 10:15:34 04/17/2018 12:09:35 Paresthesia 20197641 R20.2 Carpal laurent cole syndrome of right wrist 3229212939 46920 G56.01 [id number] ESTELA PERKINS MD [facility] [address] [place] [address] 04/17/2018 10:18:11 04/17/2018 12:10:01 Carpal tunnel syndrome of right wrist 6443238629 87860 G56.01 Paresthesia 26393766 R20 .2 [id number] RUDY TURNER MD ORTHOPEDI [address] [place] [address] 04/25/2018 13:38:05 04/27/2018 14:13:25 Carpal tunnel syndrome 67094261 G56.01 EMG/NCV (04/17/18) demonstrat ed findings consistent with a right carpal tunnel syndrome with EMG changes noted within the right APB musculatur e. Normal motor and sensory findings within the left upper extremity. [id number] RUDY TURNER MD SURGERY SCHEDULE [address] [place] [address] 04/28/2018 07:09:30 04/28/2018 07:13:08 [id number] KEITH DUMAS [facility] [address] [address] 05/10/2018 09:14:40 05/10/2018 11:13:29 Carpal tunnel syndrome of left wrist 2915651282 15651 G56.02 History of decompression of median nerve 771005448 Z98.275 [id number] RUDY TURNER MD [facility] [address] [address] 06/07/2018 10:45:42 06/08/2018 16:59:10 Postoperative care 539462285 Z48.89 6 weeks status post right endoscopic carpal tunnel release and left carpal tunnel corticoste roid injection (04/28/18) Carpal laurent cole syndrome 84360007 G56.02 Left carpal tunnel (CSI: 04/28/18) EMG/NCV (04/17/18) demonstrat ed findings consistent with a right carpal tunnel syndrome with EMG changes noted within the right APB musculatur e. Normal motor and sensory findings within the left upper extremity. Status post right endoscopic carpal tunnel release and left carpal tunnel corticoste roid injection (04/28/18) [id number] RUDY TURNER MD [facility] [address] [place] [address] 12/06/2018 09:53:28 12/06/2018 12:26:31 Postoperative care [id number] Z48.89 Previously status post right endoscopic carpal tunnel release and left carpal tunnel corticoste roid injection (04/28/18) Carpal laurent cole syndrome [id number] G56.02 Left carpal tunnel (CSI: 04/28/18) EMG/NCV (04/17/18) demonstrat ed findings consistent with a right carpal tunnel syndrome with EMG changes noted within the right APB musculatur e. Normal motor and sensory findings within the left upper extremity. Status post right endoscopic carpal tunnel release and left carpal tunnel corticoste roid injection (04/28/18) Osteoarthr osis of the carpometacarpal joint of the thumb [id number] M18.11 Right thumb Eaton stage II/III CMC joint arthritis (CSI: 12/06/18) [id number] RUDY TURNER MD [facility] [address] [place] [address] 01/04/2019 08:29:35 01/04/2019 09:03:59 Osteoarthrosis of the carpometacarpal joint of the thumb 00428757 M18.11 Right thumb Eaton stage II/III CMC joint arthritis (CSI: 12/06/18) Carpal laurent cole syndrome [id number] G56.02 G56.01 Left carpal tunnel (CSI: 01/04/19; 04/28/18) Possible recurrent right carpal tunnel syndrome (CSI: 01/04/19) EMG/NCV (04/17/18) demonstrat ed findings consistent with a right carpal tunnel syndrome with EMG changes noted within the right APB musculatur e. Normal motor and sensory findings within the left upper extremity. Status post right endoscopic carpal tunnel release and left carpal tunnel corticoste roid injection (04/28/18) Postoperative care 48911 9007 Z48.89 Previously status post right endoscopic carpal tunnel release and left carpal tunnel corticoste roid injection (04/28/18) [id number] RUDY TURNER MD [facility] [address] [address] 09/30/2020 09:52:13 09/30/2020 11:36:50 Carpal tunnel syndrome [id number] G56.02 G56.01 Left carpal tunnel (CSI: 01/04/19; 04/28/18) Possible recurrent right carpal tunnel syndrome (CSI: 01/04/19) EMG/NCV (04/17/18) demonstrat ed findings consistent with a right carpal tunnel syndrome with EMG changes noted within the right APB musculatur e. Normal motor and sensory findings within the left upper extremity. Status post right endoscopic carpal tunnel release and left carpal tunnel corticoste roid injection (04/28/18) Osteoarthr osis of the carpometacarpal joint of the thumb [id number] M18.11 Right thumb Eaton stage II/III CMC joint arthritis (CSI: 12/06/18) Postoperative care 59981 9007 Z48.89 Previously status post right endoscopic carpal tunnel release and left carpal tunnel corticoste roid injection (04/28/18) Osteoarthr itis of wrist 219442395 M19.031 Right wrist ulnocarpal CSI: 09/30/19 X-rays reveal baseline arthritic changes in the wrist with ulnar negative variance. [id number] ESTELA SHAW MD [facility] [address] [place] [address] 10/01/2020 09:05:15 10/01/2020 09:58:19 Pain of right shoulder joint [id number] M25.511 Ms Rosario has findings of significan t pain and weakness of the subscapula ris of the right shoulder status post 2 prior procedures for adhesive capsulitis of the shoulder. I discussed conservati ve treatment with physical therapy versus MRI to evaluate the subscapula ris for possible tear. I recommend MRI to evaluate for rotator cuff tear of the right shoulder. [id number] ESTELA SHAW MD [facility]I [facility] [address] [address] 10/15/2020 10:00:42 10/15/2020 12:12:52 Pain of right shoulder joint [id number] M25.511 Ms Rosario has findings of OA of the shoulder with intact subscapula ris. I recommend continued conservati ve care for the OA of the glenohumer al joint. I provided her with corticoste roid injection to help with her pain. If she has continuing symptoms she may require physical therapy versus TSA. [id number] COCO MIMS APRN RHEUMATOL OGY [address] [place] [address] 04/07/2021 07:45:16 04/07/2021 09:58:23 Body mass index 30+ - obesity [id number] Z68.33 Pain of mu ltiple joints 62673478 M25.50 chronic and recurring multiple joint painwith long family history of autoimmune diseaseno history of synovitisw ith sister with RA and on humirafami ly history of lupuswith nirmala' s thyroiditi s herselfwit h increased joint pain and tenderness with swollen jointswith out synovitis, no dactylitis , no joint effusionsm ay be inflammato ry arthritis with seronegati ve resultswil l have her stop the celebrex and perform a steroid trial and have labs then will assess her outcomelik jayant significan t inflammato ry diseasedis cussed in detail [id number] ESTELA PERKINS MD NEUROLOGY CLOSED [address] [place] [address] 04/07/2021 10:10:38 04/07/2021 11:53:43 Paresthesia [id number] R20.2 [id number] RUDY TURNER MD [facility] [address] [place] [address] 04/09/2021 10:29:40 04/09/2021 13:02:56 Carpal tunnel syndrome [id number] G56.02 G56.01 Left carpal tunnel (CSI: 01/04/19; 04/28/18) Possible recurrent right carpal tunnel syndrome (CSI: 01/04/19) EMG/NCV (04/07/21) demonstrat ed moderately severe left carpal tunnel syndrome with chronic neurogenic changes in the APB muscle. Right median sensory potential was normal with mild findings noted on motor recording, likely consistent with remote carpal tunnel syndrome. No obvious acute findings. EMG/NCV (04/17/18) demonstrat ed findings consistent with a right carpal tunnel syndrome with EMG changes noted within the right APB musculatur e. Normal motor and sensory findings within the left upper extremity. Status post right endoscopic carpal tunnel release and left carpal tunnel corticoste roid injection (04/28/18) Osteoarthr itis of wrist [id number] M19.031 Right wrist ulnocarpal CSI: 09/30/19 X-rays reveal baseline arthritic changes in the wrist with ulnar negative variance. Osteoarthr osis of the carpometacarpal joint of the thumb 67899180 M18.11 Right thumb Eaton stage II/III CMC joint arthritis (CSI: 12/06/18) Postoperative care 73486 9007 Z48.89 Previously status post right endoscopic carpal tunnel release and left carpal tunnel corticoste roid injection (04/28/18) [id number] COCO MIMS APRN RHEUMATOL OGY [address] [place] [address] 04/20/2021 14:18:37 04/20/2021 15:06:50 Pain of multiple joints 70538634 M25.50 chronic and recurring multiple joint painwith long family history of autoimmune diseaseno history of synovitisw ith sister with RA and on humirafami ly history of lupuswith nirmala' s thyroiditi s herselfwit h increased joint pain and tenderness with swollen jointswith out synovitis, no dactylitis , no joint effusionsm ay be inflammato ry arthritis with seronegati ve resultswil l have her stop the celebrex and perform a steroid trial and have labs then will assess her outcomelik jayant significan t inflammato ry diseasedis cussed in detail Body mass index 30+ - obesity [id number] Z68.33 Generalize d osteoarthritis 129113208 M15.9 multiple joint painnot improved with steroidswo rsened and flared in the low backwithou t improved outcome with steroids at allworseni ng pain was improved mildly with celebrex, but continued to the hospital for assessment was given toradol and flexeril in the EDwill have her restart the celebrex and increase the dose to two daily as needed for joint painwill further assess the back more with an mri and then send for improved outcome to pain management or to a neurosurge on if warrantedh /o physical therapy without improved outcomewor sened with chiropract ic care. Low back pain 481068528 M54.5 with visit to the ED on 04/19/2021w ith xrays obtainedmu scle relaxer with Rxpain med toradol, flexeril givenxrays obtained outside of cliniccopi ed to chart through leanne capture for reviewwill obtain an mri and then send for pain management assessment and then further to neurosurge ry if warranted [id number] ELIZA DURBIN MD PAIN MEDICINE CLOSED [address] [place] [address] 05/19/2021 10:39:52 05/19/2021 11:43:27 Lumbar spondylosis 660827543 M47.440 [id number] ELIZA DURBIN MD [facility] [employer] N[facility]ARG[facility] [address] [facility], [address] [place] [address] 06/04/2021 13:32:18 06/08/2021 14:23:44 Lumbar spondylosis 611349343 M47.867 [id number] RUDY TURNER MD SURGERY SCHEDULE [address] [place] [address] 09/09/2021 07:35:58 09/09/2021 07:36:37 [id number] HECTOR MTZ PA-C [facility]I [facility] [address] [address] 09/24/2021 08:45:48 09/24/2021 09:02:57 Osteoarthritis of wrist 164651598 M19.031 Right wrist ulnocarpal CSI: 09/30/19 Osteoarthr osis of the carpometacarpal joint of the thumb 38569842 M18.11 Right thumb Eaton stage II/III CMC joint arthritis (CSI: 12/06/18) Postoperative care 90405 9007 Z48.89 s/p left endoscopic carpal tunnel release (DOS: 09/09/21) Previously status post right endoscopic carpal tunnel release and left carpal tunnel corticoste roid injection (04/28/18) [id number] RUDY TURNER MD [facility] [address] [address] 10/22/2021 15:29:08 10/22/2021 16:47:03 Postoperative care [id number] Z48.89 6 weeks s/p left endoscopic carpal tunnel release (DOS: 09/09/21) Previously status post right endoscopic carpal tunnel release and left carpal tunnel corticoste roid injection (04/28/18) Osteoarthr itis of wrist 446284941 M19.031 Right wrist ulnocarpal CSI: 09/30/19 Osteoarthr osis of the carpometacarpal joint of the thumb 44870036 M18.11 Right thumb Eaton stage II/III CMC joint arthritis (CSI: 12/06/18) [id number] RUDY TURNER MD [facility] [address] [address] 12/08/2023 15:22:25 12/08/2023 16:49:17 Postoperative care 966459548 Z48.89 Previously s/p left endoscopic carpal tunnel release (DOS: 09/09/21) Previously status post right endoscopic carpal tunnel release and left carpal tunnel corticoste roid injection (04/28/18) Osteoarthr itis of wrist 376813680 M19.031 Right wrist ulnocarpal CSI: 09/30/19 Osteoarthr osis of the carpometacarpal joint of the thumb 60054221 M18.11 M18.12 - Right thumb Eaton stage II/III CMC joint arthritis (CSI: 12/06/18)- Left thumb Eaton stage II/III CMC joint arthritis (CSI: 12/08/2023) [id number] MEENAKSHI HUERTA MD [facility]THOPEDI [facility] [address] [place] [address] 12/19/2023 15:51:46 12/19/2023 16:49:50 Adhesive capsulitis of left shoulder 1214605210 42329 M75.02 Health Concerns Section Related Observation LastModified by Organization Detai ls LastModified Time None Recorded Concern Status LastModified by Organization Details LastModified Time None Recorded Advance Directives Directive None Recorded Payers Insurance Date Sequence Insurance Name Policy Number Policy Betts Covered Member ID Betts Member ID Guarantor Name 02/01/2025 PAYMENT PLAN Jhoana Rosario 02/12/2025 1 [place] [id number] Jhoana Rosario [id number] Jhoana Rosario Notes Date Note Type Note Provider Name and Address Organization Details Recorded Time 09/24/2021 text/html Patient presents today for post op follow up visit. She reports uneventful post op period. Primary Care Physician: Elias Walton at [facility] Hand dominance: Right Location: Left Hand Pain level: 2 /10 Recent Surgery: No Procedure: L ECTR Date of surgery: 09/09/21 Duration: 15 day(s) In office procedure? Yes Lt wrist CSI: 01/04/19; 04/28/18 and Right thumb CSI: 12/06/18 Previous upper extremity surgery? 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 Yes Is this injury associated with a Workers Compensation claim? No HECTOR MTZ PA-C [address] [place], [address], [facility] 09/24/2021 18:51:49 10/22/2021 text/html Patient reports residual numbness and tingling in the ulnar three digits, extending from around the PIP flexion creases distally. States that this is gradually improving over time as it was previously the entire fingers. She does report persistent pain and swelling in the palm, making it difficult for her to use the hand. Reports that the symptoms did not begin until around 2 weeks after surgery. Primary Care Physician: Elias Walton at [facility] Hand dominance: Right Location: Left Hand Pain level: 0 1 2 3 4 5 6 7 8 9 10 3-4 /10 resting and 7-8/10 at worst Recent Surgery: No Procedure: L ECTR Date of surgery: 09/09/21 Duration: 6 week(s) In office procedure? Yes Lt wrist CSI: 01/04/19; 04/28/18 and Right thumb CSI: 12/06/18 Previous upper extremity surgery? 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 Yes Is this injury associated with a Workers Compensation claim? NoPt arrives for recheck, states that she is having shooting pain that radiates through the hand and forearm. Pt also reports numbness and tingling in the LF, RF, and SF. RUDY TURNER MD [facility] [place], [address], [facility] 10/22/2021 16:52:15 12/08/2023 text/html Patient was last seen for follow-up after her left carpal tunnel surgery and is doing well in this regard. Presents back for evaluation of a new issue involving left basilar thumb pain. Primary Care Physician: Elias Walton at [facility] Hand dominance: Right Location: Left Hand Pain level: 2 /10 Recent Surgery: No Procedure: L ECTR Date of surgery: 09/09/21 Piedad In office procedure? Yes Lt wrist CSI: 01/04/19; 04/28/18 and Right thumb CSI: 12/06/18 Previous upper extremity surgery? 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 Yes Is this injury associated with a Workers Compensation claim? NoMs. Rosario is here for a recheck. Generalized pain of the left thumb MP and CMC RUDY TURNER MD [address] [place], [address], [facility] 12/08/2023 16:49:11 12/19/2023 text/html HAND DOMINANCE: RightWHAT: Bilateral Shoulder.WHEN: several years right - several months leftHOW: NKT, gradual onsetSYMPTOMS: Pain is intermittent sharp pain in nature.The patient has numbness or tingling in some of her fingers. She does have neuropathy and is seeing Dr Tunrer.They do not have popping and clickingThey are not able to sleep comfortably with this injury.PAIN: 7 /10X-RAY: LCMRI:PT: not for the left and postop for rightINJECTION: patient had a CSI injection on her rt shoulder with Dome on 10/15/2020 Patient states that she had sx for frozen shoulder and had DANY about 5 years ago. She states that now her right shoulder is doing fairly well. Her left shoulder seems to give her more trouble. Most of her pain in her left shoulder is on the posterior side and radiates into her tricep. Her pain is exacerbated with reaching behind her back and out to the side. MEENAKSHI HUERTA MD [address] [place], [address], [facility] 12/25/2023 21:10:04 OBGyn Episode No OBEpisode recorded.
--- NOTE | 2025-02-26 15:14 | MM_ITS ---
PROCEDURE INFORMATION: Exam: MG Bilateral Screening 3D Mammography Exam date and time: 02/26/2025 3:22 PM Age: 59 years old Clinical indication: Screening examination TECHNIQUE: Imaging protocol: Bilateral Screening tomosynthesis and 2D mammography including computer-aided detection (CAD) when performed. COMPARISON: 1. MG MM DIG SCREENING MAMM BI W/CAD 01/16/2024 4:18 PM 2. MG MM DIG SCREENING MAMM BI W/CAD 12/10/2022 3:26 PM FINDINGS: MAMMOGRAPHY: Breast composition: There are scattered areas of fibroglandular density. Mass: None. Architectural distortion: None. Calcifications: No suspicious calcifications. Asymmetric density: None. Skin thickening: None. Axillary adenopathy: None. IMPRESSION: No mammographic evidence of malignancy. Annual screening is recommended unless otherwise clinically indicated. ASSESSMENT: BI-RADS 1, Negative.
== END 2025-02-26 23:59 | disposition home or self-care (01) ==
LOC: RAD 15:12
PROVIDERS: PCP Family Medicine; Visit Provider Family Medicine
DX: Z12.31 Encounter for screening mammogram for malignant neoplasm of breast (principal); R92.323 Mammographic fibroglandular density, bilateral breasts
CPT/HCPCS: 77063; 77067

== ENCOUNTER 2025-05-03 11:28 | Emergency (ER) | payer BC, SELFPAY ==
--- OUTSIDE RECORDS SUMMARY | 2025-02-22 04:40 | XMS_ITS ---
Author Organization [facility] Address [address] [facility] [address] [place] [id number] Care Team Providers Care Bell Clerk Name Role Phone Dash Walton Primary Care Provider Results Component Value Reference Range Notes P-Comprehensive Metabolic Pa cole (CMP) Reviewed date:02/25/2025 02:04:04 PM Interpretation:Normal Performing Lab: Notes/Report: Test performed by [facility], [address] , [address], [place] [address] Shun Regalado MD, [place] CLIA: [id number] Sodium 145 135-145 mmol/L Potassium 4.4 3.5-5.3 mmol/L Chloride 105 97-108 mmol/L CO2 27 22-32 mmol/L Glucose 101 65-99 mg/dL BUN 17 8-23 mg/dL Creatinine 0.95 0.50-1.00 mg/dL Calcium 9.2 8.6-10.4 mg/dL eGFR by Creatinine 68 >59 mL/min/1.73m2 Protein 6.4 6.0-8.3 g/dL Albumin 3.9 3.5-5.3 g/dL Alkaline Phosphatase 67 35-121 IU/L ALT (SGPT) 16 <5-47 IU/L AST (SGOT) 14 <5-40 IU/L Bilirubin, Total 0.3 <0.2-1.2 mg/dL A/G Ratio 1.6 1.1-2.5 P-T4 Free (thyroxine) Reviewed date:02/25/2025 02:04:04 PM Interpretation:Normal Performing Lab: Notes/Report: Test performed by [facility] [address] [place], [place] [address] [address] Shun Regalado MD, [place] CLIA: [id number] Thyroxine Free (free T4) 1.37 0.86-1.76 ng/dL P-Lipid Panel Reviewed date:02/25/2025 02:04:04 PM Interpretation:chol 232, trigs 192, hdl 35, chol/hdl 6.63, non-hdl 197, ldl 159, ldl/hdl 4.5 Performing Lab: Notes/Report: Test performed by [facility] [address] [place], [place] [address] [place] [address] Shun Regalado MD, [place] CLIA: [id number] Cholesterol 232 <200 mg/dL Triglycerides 192 <150 mg/dL HDL Cholesterol 35 >39 mg/dL Cholesterol / HDL Ratio 6.63 0.00-4.44 Ratio Non-HDL Cholesterol 197 <130 mg/dL LDL Cholesterol (Calculation) 159 <130 mg/dL LDL Cholesterol Levels* Less than 100 mg/dL Optimal 100 to 129 mg/dL Near Optimal/ Above Optimal 130 to 159 mg/dL Borderline High 160 to 189 mg/dL High 190 mg/dL and above Very High * Categories as recommended by the 2004 ATPIII guidelines LDL/HDL Ratio 4.5 <3.3 Ratio LDL Cholesterol Patient History Test Date: 02/22/2025 LDL Results: 159 Units: mg/dL % Change: - P-TSH Reviewed date:02/25/2025 02:04:04 PM Interpretation:Normal Performing Lab: Notes/Report: Test performed by [facility] [address] [place] [address] , [address], [place] [address] Shun Regalado MD, [place] CLIA: [id number] TSH 2.47 0.43-5.25 mU/L P-Microalbumin/Creatinine, R andom Urine Sample Reviewed date:02/25/2025 02:04:04 PM Interpretation:Normal Performing Lab: Notes/Report: Test performed by [email or web address] [address] , [address], [place] [address] Shun Regalado MD, [place] CLIA: [id number] Albumin/Creatinine Ratio, Urine 4 0-30 ug/m g Microalbumin, Urine, Random 0.8 Creatinine, Urine 215.8 P-Vitamin D 25-Hydroxy Reviewed date:02/25/2025 02:04:04 PM Interpretation:39.9 Performing Lab: Notes/Report: Test performed by [facility] [address] [place] [address] , [address], [place] [address] Shun Regalado MD, [place] CLIA: [id number] Vitamin D 25-Hydroxy 39.9 30.0-100.0 ng/mL Interpretation of Vitamin D 25 OH: < 20 ng/mL - Deficiency 20 - 29 ng/mL - Insufficiency 30 - 100 ng/mL - Sufficiency > 100 ng/mL - Super-therapeutic- toxicity may occur above this level. Clinical correlation required. REASON FOR VISIT blood work Medications Medication SIG (Take, Route, Frequency, Duration) Notes Start Date End Date Status Vitamin D3 125 MCG (5000 UT) 1 cap(s) or ally once a day 11/11/2015 Active Gemtesa 75 MG 1 tablet Orally Once a day 08/13/2024 Active hydroCHLOROthiazide 25 MG 1 tablet in th e morning Orally Once a day; Duration: 30 day(s) Active Levothyroxine Sodium 100 MCG TAKE 1 TABL ET BY MOUTH ONCE DAILY IN THE MORNING ON AN EMPTY STOMACH FOR 90 DAYS; Duration: 90 days Active Sertraline HCl 100 MG 1 tab(s) orally on ce a day; Duration: 90 days Active Nabumetone 750 MG 2 tab(s) orally once a day; Duration: 30 day(s) Active Rizatriptan Benzoate 10 MG 1 tablet Oral ly Once a day Active Bisoprolol Fumarate 5 MG 1 tab(s) orally once a day Active Esomeprazole Magnesium 40 MG 1 cap(s) or ally once a day; Duration: 30 day(s) 10/08/2016 Active Lisinopril 20 MG 1 tablet Orally Once a day 01/18/2024 Active MAGNESIUM ACETATE, 500 G Active Vitamin B-12 1000 MCG 1 tab(s) sublingua lly once a day Active POTASSIUM BENZOATE, 18943 G Active Encounters Encounter Location Date Provider Diagnosis [facility] [address] [facility] [address] [place], [place] [id number] 02/22/2025 Dash Walton Essential hypertensi on I10 ; Vitamin D deficiency E55.9 ; Pure hypercholesterolemia E78.00 and Acquired hypothyroidism E03.9 Assessments Encounter Date Diagnosis (ICD Code) Assessment Notes Treatment Notes Treatment Clinical Notes Section Notes 02/22/2025 Essential hypertensi on (ICD-10 - I10) 02/22/2025 Vitamin D deficiency (ICD-10 - E55.9) 02/22/2025 Pure hypercholesterolemia (ICD-10 - E78.00) 02/22/2025 Acquired hypothyroid ism (ICD-10 - E03.9) Plan Of Treatment Next Appt Details Provider Name:Dash Arango ry, 06/03/2025 09:45:00 AM, [address] [facility], [address], [place], [id number], Progress Notes * URSZULA MULLERDOB:[birth year] (59 yo F)Acc No.[id number]:02/22/2025 Patient: URSZULA VILLAVICENCIO Provider: Donald Walton M.D. :1965 A ge:59 Y S ex:Female Date:02/22/2025 Address:[place], [id number] Subjective: * Chief Complaints: * 1 . Blood work. * Medical History: * Medications: T aking hydroCHLOROthiazide 25 MG Tablet 1 tablet in the morning Orally Once a day , Taking Vitamin D3 125 MCG (5000 UT) Capsule 1 cap(s) orally once a day , Taking MAGNESIUM ACETATE, 500 G , Taking POTASSIUM BENZOATE, 65330 G , Taking Vitamin B-12 1000 MCG Tablet 1 tab(s) sublingually once a day , Taking Esomeprazole Magnesium 40 MG Capsule Delayed Release 1 cap(s) orally once a day , Taking Bisoprolol Fumarate 5 MG Tablet 1 tab(s) orally once a day , Taking Lisinopril 20 MG Tablet 1 tablet Orally Once a day , Taking Rizatriptan Benzoate 10 MG Tablet Disintegrating 1 tablet Orally Once a day , Taking Nabumetone 750 MG Tablet 2 tab(s) orally once a day , Taking Sertraline HCl 100 MG Tablet 1 tab(s) orally once a day , Taking Levothyroxine Sodium 100 MCG Tablet TAKE 1 TABLET BY MOUTH ONCE DAILY IN THE MORNING ON AN EMPTY STOMACH FOR 90 DAYS , Taking Gemtesa 75 MG Tablet 1 tablet Orally Once a day , Medication List reviewed and reconciled with the patient Objective: * Vitals: Assessment: * Assessment: 1. E ssential hypertension - I10 (Primary) 2 . V itamin D deficiency - E55.9 3 . P ure hypercholesterolemia - E78.00 4 . A cquired hypothyroidism - E03.9 Plan: * Treatment: Value Reference Range A lbumin/Creatinine Ratio, Urine 4 0-30 - ug /mg * C reatinine, Urine 215.8 - mg/dL * M icroalbumin, Urine, Random 0.8 - mg/dL * Mere Rutledge 02/25/2025 02:03 :55 PM EDT > See phone encounter 2.?Vitamin D deficiency?LAB: P-Vitamin D 25-Hydroxy (Collection Date & Time - 02/22/2025 08:28 AM)? 39.9* Value Reference Range V itamin D 25-Hydroxy 39.9 30.0-100.0 - ng/mL * Mere Rutledge 02/25/2025 02:03 :55 PM EDT > See phone encounter 3.?Pure hypercholesterolemia?LAB: P-Comprehensive Metabolic Panel (CMP) (Collection Date & Time - 02/22/2025 08:28 AM)?Normal* Value Reference Range A /G Ratio 1.6 1.1-2.5 - * A lbumin 3.9 3.5-5.3 - g/dL * A lkaline Phosphatase 67 35-121 - IU/L * A LT (SGPT) 16 <5-47 - IU/L * A ST (SGOT) 14 <5-40 - IU/L * B ilirubin, Total 0.3 <0.2-1.2 - mg/dL * B UN 17 8-23 - mg/dL * C alcium 9.2 8.6-10.4 - mg/dL * C hloride 105 97-108 - mmol/L * C O2 27 22-32 - mmol/L * C reatinine 0.95 0.50-1.00 - mg/dL * G lucose 101 H 65-99 - mg/dL * P otassium 4.4 3.5-5.3 - mmol/L * S odium 145 135-145 - mmol/L * P rotein 6.4 6.0-8.3 - g/dL * e GFR by Creatinine 68 >59 - mL/min/1.73m2 * Mere Rutledge 02/25/2025 02:03 :55 PM EDT > See phone encounter ?LAB: P-Lipid Panel (Collection Date & Time - 02/22/2025 08:28 AM)?chol 232, trigs 192, hdl 35, chol/hdl 6.63, non-hdl 197, ldl 159, ldl/hdl 4.5* Value Reference Range C holesterol / HDL Ratio 6.63 H 0.00-4.44 - Ratio * C holesterol 232 H <200 - mg/dL * H DL Cholesterol 35 L >39 - mg/dL * L DL Cholesterol (Calculation) 159 H <130 - mg/d L * L DL/HDL Ratio 4.5 H <3.3 - Ratio * N on-HDL Cholesterol 197 H <130 - mg/dL * T riglycerides 192 H <150 - mg/dL * Mere Rutledge 02/25/2025 02:03 :55 PM EDT > See phone encounter 4.?Acquired hypothyroidism?LAB: P-T4 Free (thyroxine) (Collection Date & Time - 02/22/2025 08:28 AM)? Normal* Value Reference Range T hyroxine Free (free T4) 1.37 0.86-1.76 - ng/d L * Mere Rutledge 02/25/2025 02:03 :55 PM EDT > See phone encounter ?LAB: P-TSH (Collection Date & Time - 02/22/2025 08:28 AM)?Normal* Value Reference Range T SH 2.47 0.43-5.25 - mU/L * Mere Rutledge 02/25/2025 02:03 :55 PM EDT > See phone encounter * Images: Billing Information: * Visit Code: * Procedure Codes: * Electronic signature of Shirley Walton MD on 05/03/2025 at 11:36 AM EDT Sign off status: Pending * Provider: Donald Walton M.D. Date: 0 02/22/2025 Generated for Soco almaguer/Santos/Gautam on: 0 05/03/2025 11:36 AM EDT
--- OUTSIDE RECORDS SUMMARY | 2025-04-03 12:00 | XMS_ITS ---
[facility] Organization [facility] Address [address] [facility] [address] [place] [id number] Care Team Providers Care Cutter V Groove Name Role Phone Dash Walton Primary Care Provider [phone] Shannon Soto [phone] Allergies Allergen (clinical drug ingredient) Drug/Non Drug Allergy documented on EMR Reaction Allergy Type Onset Date Status Substance with sulfonamide structure and antibacterial mechanism of action (substance) Sulfa Antibiotics Unknown Drug Allergy Active Results Component Value Reference Range Notes P-Culture, Anaerobic and Aer obic w/Gram Stain Reviewed date:04/12/2025 11:36:35 AM Interpretation:No Anaerobes isolated Performing Lab: Notes/Report: Test performed by [email or web address] [address] [place], [place] [address] , [address] [id number] Shun Regalado MD, Teacher Of The Hearing Impaired CLIA: [id number] Specimen Source Abscess - upper back cyst Culture, Anaerobic and Aerobic w/Gram Stain See Below Final Report: No An aerobes isolated P-Culture, Miscellaneous Aer obic w/Gram Stain Reviewed date:04/12/2025 11:36:35 AM Interpretation:No Further testing indicated Performing Lab: Notes/Report: Test performed by [email or web address] [address] [place], [place] [address] [place] , [address], [place] [address] Shun Regalado MD, Teacher Of The Hearing Impaired CLIA: [id number] Specimen Source Abscess - upper back cyst Gram Stain See Below No polymorphonuclear leukocytes seen Rare Gram Positive Cocci In pairs and clusters Culture, Miscellaneous Aerobic w/Gram Stain See Below Preliminary Report: Pending, culture ongoing Final Report : Light growth of Normal adeline Growth of normal, commensal adeline that is considered non-pathogenic for the collection source was observed. If any pathogens were observed, they have been reported as isolates below. Final Report : No Further testing indicated REASON FOR VISIT swelling on back Medications Medication SIG (Take, Route, Frequency, Duration) Notes Start Date End Date Status Lisinopril 20 MG 1 tablet Orally Once a day 01/18/2024 Active Rizatriptan Benzoate 10 MG 1 tablet Oral ly Once a day Active Sertraline HCl 100 MG 1 tab(s) orally on ce a day; Duration: 90 days Active Levothyroxine Sodium 100 MCG TAKE 1 TABL ET BY MOUTH ONCE DAILY IN THE MORNING ON AN EMPTY STOMACH FOR 90 DAYS; Duration: 90 days Active Nabumetone 750 MG 2 tab(s) orally once a day; Duration: 30 day(s) Active Esomeprazole Magnesium 40 MG 1 cap(s) or ally once a day; Duration: 30 day(s) 10/08/2016 Active Bisoprolol Fumarate 5 MG 1 tab(s) orally once a day Active POTASSIUM BENZOATE, 65608 G Active Vitamin B-12 1000 MCG 1 tab(s) sublingua lly once a day Active Cephalexin 500 MG 1 tablet Orally twic e a day; Duration: 10 days 04/03/2025 Active Rosuvastatin Calcium 20 MG 1 tablet Oral ly Once a day; Duration: 90 days 02/28/2025 Active Vitamin D3 125 MCG (5000 UT) 1 cap(s) or ally once a day 11/11/2015 Active MAGNESIUM ACETATE, 500 G Active Cyclobenzaprine HCl 5 MG 1 tab(s) Orally three times a day as needed 02/22/2025 Active hydroCHLOROthiazide 25 MG 1 tablet in th e morning Orally Once a day; Duration: 30 day(s) Active Gemtesa 75 MG 1 tablet Orally Once a day 08/13/2024 Active Vital Signs Blood pressure systolic 114 mm Hg 04/03/20 25 Blood pressure diastolic 72 mm Hg 025 Heart Rate 60 /min 04/03/2025 Height 69 in 04/03/2025 Weight 213.6 lbs 04/03/2025 BMI 31.54 kg/m2 04/03/2025 Encounters Encounter Location Date Provider Diagnosis [facility] [address] [facility] [address] [facility] [address] [place] [id number] 04/03/2025 Shannon Soto Sebaceous cyst L72.3 and Local infection of the skin and subcutaneous tissue, unspecified L08.9 Assessments Encounter Date Diagnosis (ICD Code) Assessment Notes Treatment Notes Treatment Clinical Notes Section Notes 04/03/2025 Sebaceous cyst (ICD-10 - L72.3) 04/03/2025 Local infection of the skin and subcutaneous tissue, unspecified (ICD-10 - L08.9) Plan Of Treatment Medication Medication Name Sig Start Date Stop Date Notes Cephalexin 500 MG 1 tablet Orally twic e a day; Duration: 10 days 04/03/2025 Next Appt Details Follow Up: via phone to repo rt test results, Reason: Provider Name:Dash Arango , 06/03/2025 09:45:00 AM, [address] [facility], [address], [place], [id number], Progress Notes * URSZULA MULLERDOB:[birth year] (59 yo F)Acc No.[id number]:04/03/2025 Progress Notes Patient: URSZULA VILLAVICENCIO Provider: KEITH Madera :1965 A ge:59 Y S ex:Female Date:04/03/2025 Address:[address] [place], [place] [address] [id number] Pcp:Dash Walton Subjective: * Chief Complaints: * 1 . Swelling on back. * HPI: D ermatology: 59 year old female presents with c/o cyst P t here for swelling middle of her back. Pt states it stared two weeks ago and small amount of yellow stuff coming out of it. Pt states that now a lot of yellow stuff coming out of it. Pt ststes that it hurts all the time. * ROS: D ERMATOLOGY: no R marissa. n o H florencio. G ASTROENTEROLOGY: no N ausea. n o V omiting. n o D iarrhea.? U ROLOGY: no D ifficulty urinating. n o B lood in urine. * Medical History: B ulging disc, Arthritis, Osteo, numerous joints, followed by Precinct Captain, Migraine headache, Vitamin B12 deficiency, Sleep apnea, CPAP, Hypertension, Esophageal reflux, Hypothyroidism, Hyperlipidemia, Overactive bladder. * Surgical History: P artial Hysterectomy , RT Shoulder 06/24/2011, RT Shoulder 07/24/2011, hernia, bilateral inguinal 06/24/2023. * Hospitalization/Major Diagno stic Procedure: Joey [facility], [place] [facility] 01/2014. * Family History: F ather: alive 68 yrs. 1 brother(s) , 1 sister(s) . 1 son(s) , 1 daughter(s) . . * Social History: C URRENT TOBACCO USE S moking Status: Patient does NOT smoke. C affeine: yes, frequency:. Exercise: yes. Home smoke detector use: yes. Marital Status: . New since last visit: none. Past smoking status: no. Recreational drug use: Past use:. Alcohol: no. * Medications: T aking hydroCHLOROthiazide 25 MG Tablet 1 tablet in the morning Orally Once a day , Taking Vitamin D3 125 MCG (5000 UT) Capsule 1 cap(s) orally once a day , Taking MAGNESIUM ACETATE, 500 G , Taking POTASSIUM BENZOATE, 64954 G , Taking Vitamin B-12 1000 MCG [...] tablet Orally Once a day , Taking Cyclobenzaprine HCl 5 MG Tablet 1 tab(s) Orally three times a day as needed , Taking Rosuvastatin Calcium 20 MG Tablet 1 tablet Orally Once a day , Medication List reviewed and reconciled with the patient * Allergies: S ulfa Antibiotics. Objective: * Vitals: W t: 213.6, Temp: 97.5, BP: 114/72, HR: 60, Nurse: pe, Ht: 69, BMI:31.54. * Examination: G eneral Examination: General Appearance: N AD. C hest: n ormal shape and expansion. H eart: R SR. L ungs: c lear to auscultation. B ack: c yst on mid back with purulent drainage. Assessment: * Assessment: 1. S ebaceous cyst - L72.3 (Primary) 2 . L ocal infection of the skin and subcutaneous tissue, unspecified - L08.9 Plan: * Treatment: Value Reference Range C ulture, Anaerobic and Aerobic w/Gram Stain See Below - * S pecimen Source Abscess - upper back cyst - * Lisa Rivas 04/12/2025 11: 12:56 AM EDT > please contact pt and inform her that no bacteria was present in [place] 04/12/2025 11:36:23 AM EDT > Pt informed * Labs: * L ab: P-Culture, Miscellaneous Aerobic w/Gram Stain (Collection Date & Time - 04/03/2025 03:33 PM) N o Further testing indicated Value Reference Range C ulture, Miscellaneous Aerobic w/Gram Stain See Below - * S pecimen Source Abscess - upper back cyst - * G chris Stain See Below - * [facility], IT support 04/08/2025 10:55:04 : This order was created by the [employer] 04/08/2025 12:50:00 PM EDT >pt started on cephalexin Lisa Rivas 04/12/2025 11:12:56 AM EDT > please contact pt and inform her that no bacteria was present in [place] a[place] 04/12/2025 11:36:23 AM EDT > Pt informed * Procedure Codes: 1 036F TOBACCO NON-USER, G8783 BP SCR PRFRM RCMDD DEFIND SCR INTVL, G8752 MOST RECENT SYSTOLIC BP < 140MM HG, G8754 MOST RECENT DIASTOLIC BP < 90MM HG * Follow Up: v ia phone to report test results * Images: Billing Information: * Visit Code: 99685 Office Visit, Est Pt., Level 3. * Procedure Codes: 1036F TOBACCO NON-USER. G8783 BP SCR PRFRM RCMDD DEFIND SCR INTVL. G8752 MOST RECENT SYSTOLIC BP < 140MM HG. G8754 MOST RECENT DIASTOLIC BP < 90MM HG. * Electronic signature of KEITH Rothman on 05/03/2025 at 11:36 AM EDT Sign off status: Pending * Provider: KEITH Madera Date: 0 04/03/2025 Generated for Soco almaguer/Santos/eTransmitting on: 0 05/03/2025 11:36 AM EDT History and Physical Notes * HPI (History of Present Illness) Category Sub-Category Detail Notes Category Not es Dermatology cyst Pt here for swel ling middle of her back. Pt states it stared two weeks ago and small amount of yellow stuff coming out of it. Pt states that now a lot of yellow stuff coming out of it. Pt ststes that it hurts all the time Examination Category Sub-Category Detail Notes Category Not es General Examination Heart: RSR Lungs: clear to auscultatio n General Appearance: NAD Back: cyst on mid back wit h purulent drainage Chest: normal shape and exp ansion
--- OUTSIDE RECORDS SUMMARY | 2025-04-04 09:30 | XMS_ITS | Encounter Summary ---
Author Organization [facility] Address [address] [address] Care Team Providers Care Scientific Diver Name Role Phone hSannon Soto Primary Care Provider [phone] Reason for Visit * Reason Comments Primary hypertension Encounter Details Date Type Department Care Team (Late st Contact Info) Description 04/04/2025 9:30 AM EDT Office Visit [facility] [address] [facility] [place] [address] [place] [address] Anderson Garcia MD [address] [facility] [place] [address] Primary hypertension (Primary Dx); Palpitations; Mixed hyperlipidemia Social History Tobacco Use Types Packs/Day Years Used Date Smoking Tobacco: Never Passive Smoke Exposure: Never Smokeless Tobacco: Never Tobacco Cessation:Counseling Given: Not Answered Alcohol Use Standard Drinks/Week Comments Not Currently 0 (1 standard drink = 0.6 oz pur e alcohol) Comments Unknown Sex and Gender Information Value Date Recorded Sex Assigned at Not on file Legal Sex Female 10:26 AM EDT Gender Identity Not on file Sexual Orientation Not on file documented as of this encounter Last Filed Vital Signs Vital Sign Reading Time Taken Comments Blood Pressure 106/60 04/04/2025 9:23 AM EDT Pulse 64 04/04/2025 9:23 AM EDT Temperature - - Respiratory Rate - - Oxygen Saturation 97% 04/04/2025 9:23 AM EDT Inhaled Oxygen Concentration - - Weight 97.1 kg (214 lb) 04/04/2025 9:23 AM EDT Height 175.3 cm (5' 9 ) 04/04/2025 9:23 AM EDT Body Mass Index 31.6 04/04/2025 9:23 AM EDT documented in this encounter Progress Notes * Anderson Garcia MD - 04/04/2025 9:[address] 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 [employer] PROBLEM LIST: CP 01/16/2014 GXT patient exercised 8: 25, no CP, normal HR and BP response, no exercise ST changes 09/16 ex/card wnl 7:05 EF >70% no cor calcium Palpitations 02/11/2020 48-hour Holter [facility]: Normal sinus rhythm predominantly, average HR 70, occasional PACs with brief episodes of SVT longest 8 beats, rare PVCs, no pauses 08/17 OSH holter 25% pacs, runs of WCT 01/17 [facility] echo EF >60% mild MR HTN HLD 02/12 175/160/39/104 02/17 232/192/35/159 [place] On CPAP Hypothyroidism Migraines [place] Disc disease GERD B12 deficiency Surgical history: Right shoulder surgery x2 2010 Hysterectomy CC: Chief Complaint Patient presents with Primary hypertension Allergies Allergies Allergen Reactions Sulfa Antibiotics Rash Current Medications Current Outpatient Medications Medication Instructions bisoprolol (ZEBETA) 5 mg, Oral, Daily cephalexin (KEFLEX) 500 MG capsule cyclobenzaprine (FLEXERIL) 5 MG tablet As Needed gabapentin (NEURONTIN) 100 MG capsule As Needed levothyroxine (SYNTHROID, LEVOTHROID) 100 mcg, Daily lisinopril (PRINIVIL,ZESTRIL) 20 mg, Oral, Daily Magnesium 250 MG tablet Daily nabumetone (RELAFEN) 750 MG tablet TAKE 1 TABLET BY MOUTH TWICE DAILY NEEDED FOR ARTHRITIS PAIN omeprazole (PRILOSEC) 20 mg, As Needed Potassium 99 MG tablet Daily rizatriptan HELPER METAL HANGING (MAXALT-HELPER METAL HANGING) 10 mg, As Needed rosuvastatin (CRESTOR) 20 mg, Every 24 Hours sertraline (ZOLOFT) 100 mg, Daily vitamin B-12 (CYANOCOBALAMIN) 1,000 mcg, Daily Vitamin D, Cholecalciferol, 50 MCG (1999 UT) capsule Daily History of Present Illness Jhoana Early is a 59 y.o. year old female here for follow up. She retired from teaching now has been helping with 5 grandchildren. She had started rosuvastatin last month but has scheduled follow-up labs later this fall. She has no chest pain. She has noted some hypotension. OBJECTIVE: Vitals: 04/04/25 0923 BP: 106/60 BP Location: Right arm Patient Position: Sitting Cuff Size: Adult Pulse: 64 SpO2: 97% Weight: 97.1 kg (214 lb) Height: 175.3 cm (69 ) Body mass index is 31.6 kg/m??. Constitutional: Appearance: Healthy appearance. Not in distress. Neck: Vascular: No JVR. JVD normal. Pulmonary: Effort: Pulmonary effort is normal. Breath sounds: Normal breath sounds. No wheezing. No rhonchi. No rales. Chest: Chest wall: Not tender to palpatation. Cardiovascular: PMI at left midclavicular line. Normal rate. Regular rhythm. Normal S1. Normal S2. Murmurs: There is no murmur. No gallop. No click. No rub. Pulses: Intact distal pulses. Edema: Peripheral edema absent. Abdominal: General: Bowel sounds are normal. Palpations: Abdomen is soft. Tenderness: There is no abdominal tenderness. Musculoskeletal: Normal range of motion. General: No tenderness. Skin: General: Skin is warm and dry. Neurological: Mental Status: Alert and oriented to person, place and time. Diagnostic Data: Procedures Advance Care Planning ACP discussion was held with the patient during this visit. Patient has an advance directive (not in EMR), copy requested. ASSESSMENT: Diagnosis Plan 1. Primary hypertension 2. Palpitations 3. Mixed hyperlipidemia PLAN: Hypertension no hypotension will discontinue chlorthalidone use only as needed for systolic greaterthan 130 Palpitations controlled on bisoprolol. Will follow-up her echocardiogram was completed at [facility] within the last 2 weeks Mixed dyslipidemia committed to statin therapy discussed plaque stabilization quality with her and she will have follow-up of lab work later this fall Anderson Gracia MD, [facility] documented in this encounter Plan of Treatment Upcoming Encounters Date Type Department Care Team (Late st Contact Info) Description 07/17/2026 2:45 PM EDT Office Visit [facility] [address] [place] [address] [place] [address] Anderson Garcia MD [address] [facility] [address] [place] [address] documented as of this encounter Visit Diagnoses Diagnosis Primary hypertension- Primary Unspecified essential hypertension Palpitations Mixed hyperlipidemia documented in this encounter Care Teams Scientific Diver Relationship Specialty Start Date End Date Shannon Soto PA [address] [place] [address] PCP - General Physician Clinical Trial Head 08/18/22 documented as of this encounter
--- OUTSIDE RECORDS SUMMARY | 2025-05-01 09:45 | XMS_ITS ---
[facility] Address [address] [place] [id number] Care Team Providers Care Campus Chaplain Name Role Phone Dash Walton Primary Care Provider Shannon Soto Unavailable [phone] Allergies Allergen (clinical drug ingredient) Drug/Non Drug Allergy documented on EMR Reaction Allergy Type Onset Date Status Substance with sulfonamide structure and antibacterial mechanism of action (substance) Sulfa Antibiotics Unknown Drug Allergy Active REASON FOR VISIT physical for school and look at cyst Medications Medication SIG (Take, Route, Frequency, Duration) Notes Start Date End Date Status hydroCHLOROthiazide 25 MG 1 tablet in th e morning Orally Once a day; Duration: 30 day(s) Active Sertraline HCl 100 MG 1 tab(s) orally on a day; Duration: 90 days Active Rosuvastatin Calcium 20 MG 1 tablet Oral ly Once a day; Duration: 90 days 02/28/2025 Active Levothyroxine Sodium 100 MCG 1 tablet in the morning on an empty stomach Orally Once a day; Duration: 90 days Active Cephalexin 500 MG 1 tablet Orally tw e a day; Duration: 10 days Active Cyclobenzaprine HCl 5 MG 1 tab(s) Orally three times a day as needed 02/22/2025 Active Gemtesa 75 MG 1 tablet Orally Once a day 08/13/2024 Active Nabumetone 750 MG 2 tab(s) orally once a day; Duration: 30 day(s) Active Rizatriptan Benzoate 10 MG 1 tablet Oral ly Once a day Active Lisinopril 20 MG 1 tablet Orally Once a day 01/18/2024 Active Bisoprolol Fumarate 5 MG 1 tab(s) orally once a day Active Esomeprazole Magnesium 40 MG 1 cap(s) or ally once a day; Duration: 30 day(s) 10/08/2016 Active Vitamin B-12 1000 MCG 1 tab(s) sublingua lly once a day Active POTASSIUM BENZOATE, 98492 G Active MAGNESIUM ACETATE, 500 G Active Vitamin D3 125 MCG (5000 UT) 1 cap(s) or ally once a day 11/11/2015 Active Vital Signs Blood pressure systolic 130 mm Hg 05/01/20 25 Blood pressure diastolic 84 mm Hg 025 Heart Rate 60 /min 05/01/2025 Height 69 in 05/01/2025 Weight 221.6 lbs 05/01/2025 BMI 32.72 kg/m2 05/01/2025 Encounters Encounter Location Date Provider Diagnosis [facility] [address] [facility] [address] [facility] [address] [place] [id number] 05/01/2025 Shannon Chavarriadell Sebaceous cyst L72.3 ; Physical exam Z00.00 and Local infection of the skin and subcutaneous tissue, unspecified L08.9 Assessments Encounter Date Diagnosis (ICD Code) Assessment Notes Treatment Notes Treatment Clinical Notes Section Notes 05/01/2025 Sebaceous cyst (ICD-10 - L72.3) 05/01/2025 Physical exam (ICD-10 - Z00.00) 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 Next Appt Details Follow Up: prn, Reason: Provider Name:Dash arriaga, 06/03/2025 09:45:00 AM, [address] [facility] [address] [facility], [address], [place], [phone], Progress Notes * URIEL MULLER:[birth year] (59 yo F)Acc No.[id number]:05/01/2025 Physical Patient: URSZULA VILLAVICENCIO Provider: KEITH Madera :1965 A ge:59 Y S ex:Female Date:05/01/2025 Address:[place], [id number] Pcp:Dash Walton Subjective: * Chief Complaints: * 1 . Physical for school and look at cyst. * HPI: H PI: Patient is here today for physical for school. D ermatology: c/o cyst P t states she went to the career coach for a cyst on her back and it was gone at that time after finishing abx. It has now returned.. * ROS: D ERMATOLOGY: no R marissa. n o H florencio. G ASTROENTEROLOGY: no N ausea. n o V omiting. n o D iarrhea.? U ROLOGY: no D ifficulty urinating. n o B lood in urine. * Medical History: B ulging disc, Arthritis, Osteo, numerous joints, followed by Showroom Consultant, Migraine headache, Vitamin B12 deficiency, Sleep apnea, CPAP, Hypertension, Esophageal reflux, Hypothyroidism, Hyperlipidemia, Overactive bladder. * Surgical History: P artial Hysterectomy , RT Shoulder 06/24/2011, RT Shoulder 07/24/2011, hernia, bilateral inguinal 06/24/2023, bladder suspension, unspecified, 04/29/25. * Hospitalization/Major Diagno stic Procedure: [facility] [place] [facility] 01/2014. * Family History: F ather: [...] ACETATE, 500 G , Taking POTASSIUM BENZOATE, 13984 G , Taking Vitamin B-12 1000 MCG [...] tab(s) orally once a day , Taking Gemtesa 75 MG Tablet 1 tablet Orally Once a day , Taking Cyclobenzaprine HCl 5 MG Tablet 1 tab(s) Orally three times a day as needed , Taking Rosuvastatin Calcium 20 MG Tablet 1 tablet Orally Once a day , Taking Cephalexin 500 MG Tablet 1 tablet Orally twice a day , Taking Sertraline HCl 100 MG Tablet 1 tab(s) orally once a day , Taking Levothyroxine Sodium 100 MCG Tablet 1 tablet in the morning on an empty stomach Orally Once a day , Medication List reviewed and reconciled with the patient * Allergies: S ulfa Antibiotics. Objective: * Vitals: W t: 221.6, Temp: 97.6, BP: 130/84, HR: 60, Nurse: rocio, Ht: 69, BMI:32.72. * Examination: G eneral Examination: General Appearance: N AD. H EENT: s clera and conjunctiva clear, PERRLA, TM's normal, translucent. O ral cavity: n o lesions, mucosa moist and WNL, no erythema. N marcelle: s upple, no lymphadenopathy. C hest: n ormal shape and expansion. H eart: R SR. L ungs: c lear to auscultation. A bdomen: b owel sounds present, soft and nontender, no organomegaly or masses. N eurologic Exam: I ntact, gait normal. S kin: t here is a cyst on the back with surrounding erythema and edema, it is tender. Peripheral pulses: n ormal (2+) bilaterally. E xtremities: n o leg edema. ? Assessment: * Assessment: 1. P hysical exam - Z00.00 (Primary) 2 . S ebaceous cyst - L72.3 3 . L ocal infection of the skin and subcutaneous tissue, unspecified - L08.9 ? Plan: * Treatment: 2. S ebaceous cyst Start Cephalexin Tablet, 500 MG, 1 tablet, Orally, twice a day, 10 days, 20 Tablet, Refills 0. * Follow Up: p rn * Images: Billing Information: * Visit Code: 89068 Preventive Care Est Pt Age 40-64. Modifiers: 66123 Office Visit, Est Pt., Level 3. * Procedure Codes: * Electronic signature of KEITH Rothman on 05/03/2025 at 11:36 AM EDT Sign off status: Pending * Provider: KEITH Madera Date: 0 05/01/2025 Generated for Soco almaguer/Santos/eTransmitting on: 0 05/03/2025 11:36 AM EDT History and Physical Notes * HPI (History of Present Illness) Category Sub-Category Detail Notes Category Not es Dermatology cyst Pt states she we nt to the career coach for a cyst on her back and it was gone at that time after finishing abx. It has now returned. HPI Patient is here today for physical for ms hool Examination Category Sub-Category Detail Notes Category Not es General Examination HEENT: sclera and c onjunctiva clear, PERRLA, TM's normal, translucent Heart: RSR Lungs: clear to auscultatio n Abdomen: bowel sounds present , soft and nontender, no organomegaly or masses Extremities: no leg edema General Appearance: NAD Skin: there is a cyst on t he back with surrounding erythema and edema, it is tender Neurologic Exam: Intact, gait normal Neck: supple, no lymphaden opathy Oral cavity: no lesions, mucosa m oist and WNL, no erythema Peripheral pulses: normal (2+) bilatera lly Chest: normal shape and exp ansion
--- OUTSIDE RECORDS SUMMARY | 2025-05-03 11:36 | XMS_ITS | Clinical Summary ---
Author Organization [facility] [employer] [facility] Address [address] [place] [address] Care Team Providers Care Retail Sales Teammate Name Role Phone Shnanon Soto Primary Care Provider [phone] Allergies Active Allergy Reactions Criticality Noted Date Comments Sulfa Antibiotics Rash Low 02/17/2014 Medications rizatriptan EXPRESSIVE ART THERAPIST (MAXALT-EXPRESSIVE ART THERAPIST) 10 MG disintegrating tablet 1 tablet As Needed. 01/12/20 20 Active levothyroxine (SYNTHROID, LEVOTHROID) 100 MCG tablet Take 1 tablet by mouth Daily. Active omeprazole (priLOSEC) 20 MG capsule Take 1 capsule by mouth As Needed. Active gabapentin (NEURONTIN) 100 MG capsule As Needed. Active nabumetone (RELAFEN) 750 MG tablet TAKE 1 TABLET BY MOUTH TWICE DAILY NEEDED FOR ARTHRITIS PAIN 07/26/20 22 Active sertraline (ZOLOFT) 100 MG tablet Take 1 tablet by mouth Daily. 07/17/20 22 Active Potassium 99 MG tablet Take by mouth Daily. Active Vitamin D, Cholecalciferol, 50 MCG (2000 UT) capsule Take by mouth Daily. Active Magnesium 250 MG tablet Take by mouth Daily. Active lisinopril (PRINIVIL,ZESTRIL ) 20 MG tablet Take 1 tablet by mouth Daily. 90 tablet 3 04/07/20 23 Active vitamin B-12 (CYANOCOBALAMIN) 1000 MCG tablet Take 1 tablet by mouth Daily. Active bisoprolol (ZEBeta) 5 MG tablet Take 1 tablet by mouth once daily 90 tablet 04/03/20 25 Active cephalexin (KEFLEX) 500 MG capsule 04/03/20 Active cyclobenzaprine (FLEXERIL) 5 MG tablet As Needed for Muscle Spasms. 02/23/20 Active rosuvastatin (CRESTOR) 20 MG tablet 1 tablet Daily. 02/29/20 Active Glucosamine 500 MG capsule Take 2 capsules by mouth Daily. 2024 Discontinued(* Therapy completed) chlorthalidone (HYGROTON) 25 MG tablet Take 1 tablet by mouth once daily 30 tablet 3 03/19/20 25 2024 Discontinued Encounters Date Type Department Care Team Description 04/04/2025 9:30 AM EDT Office Visit [facility] [address] [facility] [place] [address] [place] [address] Anderson Garcia MD Primary hypertension (Primary Dx); Palpitations; Mixed hyperlipidemia 04/04/2025 Travel 04/03/2025 Refill [facility] [address] [facility] [address] [place] [address] Anderson Garcia MD Med Refill 03/17/2025 Refill [facility] [address] [facility] [address] [place] [address] Anderson Garcia MD Med Refill from Last 3 Months Family History Medical History Relation Name Comments Cancer Mother Relation Name Status Comments Father Mother Social History Tobacco Use Types Packs/Day Years [...] on file Sexual Orientation Not on file Last Filed Vital Signs Vital Sign Reading Time Taken Comments Blood Pressure 106/60 04/04/2025 9:23 AM EDT Pulse 64 04/04/2025 9:23 AM EDT Temperature - - Respiratory Rate 16 03/21/2020 12:49 PM EDT Oxygen Saturation 97% 04/04/2025 9:23 AM EDT Inhaled Oxygen Concentration - - Weight 97.1 kg (214 lb) 04/04/2025 9:23 AM EDT Height 175.3 cm (5' 9 ) 04/04/2025 9:23 AM EDT Body Mass Index 31.6 04/04/2025 9:23 AM EDT Plan of Treatment Upcoming Encounters Date Type Department Care Team (Late st Contact Info) Description 07/17/2026 2:45 PM EDT Office Visit [facility] [address] [place] [address] [place] [address] Anderson Garcia MD [address] [facility] [address] [place] [address] Health Maintenance Due Date Last Done Comments Annual Gynecologic Pelvic an d Breast Exam 1965 LIPID PANEL 1964 COLOGUARD 2009 COLON CANCER SCREENING 5 YEA R SIGMOIDOSCOPY 2009 COLONOSCOPY 2009 [address] CANCER SCREENING 2009 CT COLONOGRAPHY 2009 FECAL OCCULT BLOOD TEST 2009 FIT Testing (1 year) 2009 Pneumococcal Vaccine 50+ (1 of 1 - PCV) 2014 ANNUAL PHYSICAL 03/19/2020 HEPATITIS C SCREENING 03/19/2020 MAMMOGRAM 11/28/2021 11/29/2019 ZOSTER VACCINE (2 of 2) 09/10/2022 07/16/2022 COVID-19 Vaccine (4 - season) 2024 09/01/2021, 11/19/2020, 10/22/2020 INFLUENZA VACCINE 06/26/2025 TDAP/TD VACCINES (2 - Td or Tdap) 07/16/2032 022 Procedures Procedure Name Priority Date/Time Associated Diagnosis Comments SCANNED - LABS 02/22/2025 SCANNED - LABS 02/22/2025 SCANNED - MAMMO 11/29/2019 from Last 3 Months or Most Recently Relevant to Health Maintenance Results * LABS SCANNED (02/22/2025) Only the most recent of2 resultswithin the time period is included. us Anderson Garcia MD LAB BLOOD ORDERABLES Final Res ult * SCANNED - MAMMO (11/29/2019) Anatomical Region Laterality Modality Other [facility] CHART REVIEW TABS Final Re sult from Last 3 Months or Most Recently Relevant to Health Maintenance Insurance [employer] Care Teams Retail Sales Teammate Relationship Specialty Start Date End Date Shannon Soto PA [address] [place] [address] [facility] [address] PCP - General Physician Small Products Assembler 08/18/22
--- OUTSIDE RECORDS SUMMARY | 2025-05-03 11:36 | XMS_ITS | Clinical Summary ---
Author Organization [facility] Address [address] [place] [address] Care Team Providers Care Multiple Coil Winder Name Role Phone Shant Ledesma MD Primary Care Provider [phone] Allergies Active Allergy Reactions Criticality Noted Date Comments Sulfa Drugs Hives,Rash Medium 05/17/2011 Medications nabumetone (Relafen) 750 MG tablet TAKE 1 TABLET BY MOUTH TWICE DAILY NEEDED FOR ARTHRITIS PAIN 3 Active oxybutynin XL (Ditropan-XL) 5 MG 24 hr tablet Take 1 tablet (5 mg) by mouth 1 (one) time each day. 3 Active bisoprolol (Zebeta) 5 MG tablet Take 1 tablet (5 mg) by mouth 1 (one) time each day. 2 Active lisinopril-hydroCH LOROthiazide 20-25 MG tablet Take 1 tablet by mouth 1 (one) time each day. 3 Active levothyroxine (Synthroid, Levoxyl) 75 MCG tablet Take 1 tablet (75 mcg) by mouth 1 (one) time each day. 3 Active cyclobenzaprine (Flexeril) 10 MG tablet Take 1 tablet (10 mg) by mouth 3 (three) times a day if needed. 3 Active rizatriptan CLIENT RELATIONSHIP CONSULTANT (Maxalt-CLIENT RELATIONSHIP CONSULTANT) 10 MG disintegrating tablet DISSOLVE 1 TABLET IN MOUTH ONCE DAILY NEEDED 3 Active cholecalciferol (Vitamin D-3) 50 MCG (2000 UT) capsule Active sertraline (Zoloft) 100 MG tablet Take 1 tablet (100 mg) by mouth 1 (one) time each day. Active methocarbamol (Robaxin) 500 MG tablet Take 1 tablet (500 mg) by mouth 4 (four) times a day for 10 days. 40 tablet Active Active Problems Problem Noted Date Diagnosed Date Arthritis 05/11/2023 Hypertension 05/11/2023 Bilateral inguinal hernia 05/11/2023 Hyperlipidemia 05/11/2023 Gastroesophageal reflux disease 05/11/2023 Hiatal hernia 05/11/2023 Family History Medical History Relation Name Comments Anesthesia problems Neg Hx Malig Hyperthermia Neg Hx Social History Tobacco Use Types Packs/Day Years Used Date Smoking Tobacco: Never Smokeless Tobacco: Never Tobacco Cessation:Counseling Given: Yes Alcohol Use Standard Drinks/Week Comments Never 0 (1 standard drink = 0.6 oz pur e alcohol) PHQ-2 Answer Date Recorded Patient Health Questionnaire-2 Score 0 07/12/2023 PHQ-2A Answer Date Recorded Patient Health Questionnaire-2 Score 0 07/12/2023 Comments No Sex and Gender Information Value Date Recorded Sex Assigned at Female 06/24/2023 9:53 AM EDT Legal Sex Female 7:38 PM EDT Gender Identity Female 06/24/2023 9:53 AM EDT Sexual Orientation Not on file Last Filed Vital Signs Vital Sign Reading Time Taken Comments Blood Pressure 116/77 07/12/2023 9:46 AM EDT Pulse 51 07/12/2023 9:46 AM EDT Temperature 36.8 C (98.2 F) 06/24/2023 6:15 PM EDT Respiratory Rate 16 07/12/2023 9:46 AM EDT Oxygen Saturation 95% 07/12/2023 9:46 AM EDT Inhaled Oxygen Concentration - - Weight 97.1 kg (214 lb) 07/12/2023 9:46 AM EDT Height 175.3 cm (5' 9 ) 07/12/2023 9:46 AM EDT Body Mass Index 31.6 07/12/2023 9:46 AM EDT Plan of Treatment Health Maintenance Due Date Last Done Comments [facility]-HIV Screening 1965 [facility]-Hepatitis C Screening 1964 [facility]-Infant/Child/Adol SDOH Screenings 1964 [facility]- SDOH Screenings 1982 [facility]-Adult SDOH Screenings 1982 CT Colonography 2009 Colonoscopy 2009 FIT-DNA 2009 FIT 2009 FOBT 2009 Sigmoidoscopy 2009 [facility]-Colorectal Cancer Screening 2009 [facility]-Breast Cancer Screening 2014 [facility]-Pneumococcal Vaccine: 50 + Years (1 of 1 - PCV) 2014 [facility]-Zoster Vaccines (2 of 2) 09/10/2022 07/16/2022 [id number] Vaccine (4 - season) 2024 09/01/2021, 11/19/2020, 10/22/2020 [facility]-RSV Vaccine: 60+ Years o r (1 - Risk 60-74 years 1-dose series) 2024 [facility]-Depression Screening 07/12/2024 07/12/2023 [facility]-Influenza Vaccine (#1) 2025 [facility]-DTaP,Tdap,and Td Vaccine s (2 - Td or Tdap) 07/16/2032 07/16/2022 [facility]-Hepatitis A Vaccines Aged Out 06/21/2018 No longer eligible based on patient's age to complete this topic [facility]-Obesity Intervention Completed 023, 05/11/2023 HPV Vaccines Aged Out No longer eligi ble based on patient's age to complete this topic [facility]-HIB Vaccines Aged Out No longer e ligible based on patient's age to complete this topic [facility]-IPV Vaccines Aged Out No longer e ligible based on patient's age to complete this topic [facility]-Rotavirus Vaccines Aged Out No lo nger eligible based on patient's age to complete this topic Medical Devices Implanted Type Area Computer Animator Device Identifier Shelf Expiration Date Model / Serial / Lot Mesh 3d Max 4x6 Large Left - [id number] Implanted:Qty: 1 on 06/24/2023 by Jarred Quarles MD at [facility] Left: [id number] 11/23/2027 [id number] / / [id number] Mesh 3d Max 4x6 Large Right - [id number] Implanted:Qty: 1 on 06/24/2023 by Jarred Quarles MD at [facility] Right: [employer]ey [id number] 07/23/2027 [id number] / / [id number] Insurance [employer] Care Teams Multiple Coil Winder Relationship Specialty Start Date End Date Shant Ledesma MD [address] [place] [address] PCP - General 02/06/21
--- OUTSIDE RECORDS SUMMARY | 2025-05-03 11:36 | XMS_ITS | Encounter Summary ---
Author Organization [facility] Address [address] [place] [address] Care Team Providers Care Solid Plasterer Name Role Phone Shannon Soto Primary Care Provider [phone] Reason for Visit * Reason Comments Med Refill Encounter Details Date Type Department Care Team (Late Contact Info) Description 04/03/[address] [facility] [address] [facility] [address] [place] [address] Anderson Garcia MD [address] [facility] [address] [place], [place] [id number] Med Refill Social History Tobacco Use Types Packs/Day Years Used Date Smoking Tobacco: Never Smokeless Tobacco: Never Alcohol Use Standard Drinks/Week Comments Not Currently 0 (1 standard drink = 0.6 oz pur e alcohol) Comments Unknown Sex and Gender Information Value Date Recorded Sex Assigned at Not on file Legal Sex Female 10:26 AM EDT Gender Identity Not on file Sexual Orientation Not on file documented as of this encounter Plan of Treatment Upcoming Encounters Date Type Department Care Team (Late Contact Info) Description 07/17/2026 2:45 PM EDT Office Visit [facility] [address] [place] [address] [place] [address] Anderson Garcia MD [address] [facility] [address] [place] [address] documented as of this encounter Visit Diagnoses Not on filedocumented in this encounter Care Teams Solid Plasterer Relationship Specialty Start Date End Date Shannon Soto PA [address] [place] [address] PCP - General Physician Nuclear Technologist 08/18/22 documented as of this encounter
--- OUTSIDE RECORDS SUMMARY | 2025-05-03 11:36 | XMS_ITS | Encounter Summary ---
Author Organization [facility] Address [address] [place] [address] Care Team Providers Care Culture Manager Name Role Phone Shannon Soto Primary Care Provider [phone] Encounter Details Date Type Department Care Team (Latest Contact Info) Description 04/04/2025 Travel Social History Tobacco Use Types Packs/Day Years Used Date Smoking Tobacco: Never Passive Smoke Exposure: Never Smokeless Tobacco: Never Alcohol Use Standard [...] Description 07/17/2026 2:45 PM EDT Office Visit [facility] [address] [place] [address] Anderson Garcia MD [address] [facility] [address] [place] [address] documented as of this encounter Visit Diagnoses Not on filedocumented in this encounter Care Teams Culture Manager Relationship Specialty Start Date End Date Shannon Soto PA [address] [place] [address] [place] [address] PCP - General Physician Nursing Support Worker 08/18/22 documented as of this encounter
--- OUTSIDE RECORDS SUMMARY | 2025-05-03 11:36 | XMS_ITS | Encounter Summary ---
Author Organization [facility] Address [address] [place] [id number] Care Team Providers Care Blood Collector Name Role Phone Shannon Soto Primary Care Provider [phone] Reason for Visit * Reason Comments Med Refill Encounter Details Date Type Department Care Team (Late st Contact Info) Description 03/17/2025 Refill [facility] [address] [place] [id number] Anderson Garcia MD [address] [facility] [address] [place] [address] Med Refill Social History Tobacco Use Types [...] on file documented as of this encounter Miscellaneous Notes * Telephone Encounter - Christie Orta RN - 03/19/2025 10:14 AM EDT Requested annual lab work from PCP . documented in this encounter Plan of Treatment Upcoming Encounters Date Type Department Care Team (Late st Contact Info) Description 07/17/2026 2:45 PM EDT Office Visit [facility] [address] [place] [address] [place] [address] Anderson Garcia MD [address] [facility] [address] [place] [address] documented as of this encounter Visit Diagnoses Not on filedocumented in this encounter Care Teams Blood Collector Relationship Specialty Start Date End Date Shannon Soto PA [address] [facility] [address] [place] [address] PCP - General Physician Crime Scene Examiner 08/18/22 documented as of this encounter
--- OUTSIDE RECORDS SUMMARY | 2025-05-03 11:36 | XMS_ITS | Encounter Summary ---
Author Organization [facility] Address [address] [place] [address] Care Team Providers Care Junior Copywriter Name Role Phone Shant Ledesma MD Primary Care Provider [phone] Encounter Details Date Type Department Care Team (Late st Contact Info) Description 04/13/2023 Orders Only External Location [address] [place] [address] Provider, External Social History Tobacco Use Types Packs/Day Years Used Date Smoking Tobacco: Never Assessed Comments Unknown Sex and Gender Information Value Date Recorded Sex Assigned at Female 06/24/2023 9:53 AM EDT Legal Sex Female 7:38 PM EDT Gender Identity Female 06/24/2023 9:53 AM EDT Sexual Orientation Not on file documented as of this encounter Plan of Treatment Not on file documented as of this encounter Procedures Procedure Name Priority Date/Time Associated Diagnosis Comments MR OUTSIDE IMAGES 04/13/2023 3:47 PM EDT documented in this encounter Results * MR transfer of outside films (04/13/2023 3:47 PM EDT) Anatomical Region Laterality Modality Magnetic Resonan ce 04/13/2023 3:47 PM EDT us External Provider IMG MRI PROCEDURES Final Resul t documented in this encounter Visit Diagnoses Not on filedocumented in this encounter Care Teams Junior Copywriter Relationship Specialty Start Date End Date Shant Ledesma MD [address] [place] [address] PCP - General 02/06/21 documented as of this encounter
--- OUTSIDE RECORDS SUMMARY | 2025-05-03 11:37 | XMS_ITS | Patient Health Record ---
Author Organization [facility] Address [address] [facility] [address] [place] [id number] Care Team Providers Care Neighborhood Planner Name Role Phone Dash Walton Primary Care Provider Victor Manuel Giraldo Unavailable [phone] Araceli Johnson Unavailable [phone] Shannon Soto Unavailable [phone] Allergies Allergen (clinical drug ingredient) Drug/Non Drug Allergy documented on EMR Reaction Allergy Type Onset Date Status Substance with sulfonamide structure and antibacterial mechanism of action (substance) Sulfa Antibiotics Unknown Drug Allergy Active Results Component Value Reference Range Notes P-Comprehensive Metabolic Pa cole (CMP) Reviewed date:02/25/2025 02:04:04 PM Interpretation:Normal Performing Lab: Notes/Report: Test performed by [facility] , [address], [place] [address] Shun Regalado MD, Beer Brewer CLIA: [id number] Sodium 145 135-145 mmol/L Potassium 4.4 3.5-5.3 [...] Interpretation:Normal Performing Lab: Notes/Report: Test performed by [facility] [address] [place] [address] , [address], [place] [address] Shun Regalado MD, Beer Brewer CLIA: [id number] Thyroxine Free (free T4) 1.37 0.86-1.76 ng/dL P-Lipid Panel Reviewed date:02/25/2025 02:04:04 PM Interpretation:chol 232, trigs 192, hdl 35, chol/hdl 6.63, non-hdl 197, ldl 159, ldl/hdl 4.5 Performing Lab: Notes/Report: Test performed by [facility] [address] [place] [address] , [address], [place] [address] Shun Regalado MD, Beer Brewer CLIA: [id number] Cholesterol 232 <200 mg/dL Triglycerides 192 <150 [...] Interpretation:Normal Performing Lab: Notes/Report: Test performed by [facility] [address] , [address], [place] [address] Shun Regalado MD, Beer Brewer CLIA: [id number] TSH 2.47 0.43-5.25 mU/L P-Microalbumin/Creatinine, R andom Urine Sample Reviewed date:02/25/2025 02:04:04 PM Interpretation:Normal Performing Lab: Notes/Report: Test performed by [facility] [address] , [place] [address] Shun Regalado MD, Beer Brewer CLIA: [id number] Albumin/Creatinine Ratio, Urine 4 0-30 ug/mg Microalbumin, Urine, Random 0.8 Creatinine, Urine 215.8 P-Vitamin D 25-Hydroxy Reviewed date:02/25/2025 02:04:04 PM Interpretation:39.9 Performing Lab: Notes/Report: Test performed by [facility] [address] [place] [address] , [address], [place] [address] Shun Regalado MD, Beer Brewer CLIA: [id number] Vitamin D 25-Hydroxy 39.9 30.0-100.0 ng/mL Interpretation of Vitamin D 25 OH: < 20 ng/mL - Deficiency 20 - 29 ng/mL - Insufficiency 30 - 100 ng/mL - Sufficiency > 100 ng/mL - Super-therapeutic- toxicity may occur above this level. Clinical correlation required. P-Culture, Anaerobic and Aer obic w/Gram Stain Reviewed date:04/12/2025 11:36:35 AM Interpretation:No Anaerobes isolated Performing Lab: Notes/Report: Test performed by [facility] [address] [place] [address] , [address], [place] [address] Shun Regalado MD, Beer Brewer CLIA: [id number] Specimen Source Abscess - upper back cyst Culture, Anaerobic and Aerobic w/Gram Stain See Below Final Report: No An aerobes isolated P-Culture, Miscellaneous Aer obic w/Gram Stain Reviewed date:04/12/2025 11:36:35 AM Interpretation:No Further testing indicated Performing Lab: Notes/Report: Test performed by [facility] [address] [place] [address] , [address], [place] [address] Shun Regalado MD, Beer Brewer CLIA: [id number] Specimen Source Abscess - upper back cyst [...] Final Report : No Further testing indicated Mammogram Reviewed date:03/01/2025 04:20:33 PM Interpretation:Negative, Annual Screening Performing Lab: Notes/Report: Negative, Annual Screening TEN-UTI panel Reviewed date:02/25/2025 02:04:04 PM Interpretation:Negative Performing Lab: Notes/Report: Negative Urinalysis - Inhouse Reviewed date:02/20/2025 05:05:23 PM Interpretation: Performing Lab: Notes/Report: Color/Clarity dark yellow/clear Leuk Neg Nitrite Neg Urobili 16 Protein Neg pH 6.0 Blood Neg Sp. Gr. 1.025 Ketone Trace Bili 1+ Gluc Neg Ultrasound : upper arm, righ t Reviewed date:07/12/2024 12:37:53 PM Interpretation:not performed Performing Lab: Notes/Report: not performed H-VITAMIN B12 Reviewed date:06/14/2024 09:22:47 AM Interpretation: Normal Performing Lab: Notes/Report: VITB12 478 239-931 pg/mL H-Glycohemoglobin A1C Reviewed date:06/14/2024 09:23:04 AM Interpretation:5.6 Performing Lab: Notes/Report: HGBA1C 5.6 4.0-6.0 % < 6% Non-Diabetic Level < 7% Controlled Diabetic Level > 8% Poorly Controlled Diabetic Level BRCA gene test Reviewed date:07/23/2024 11:06:36 PM Interpretation: Performing Lab: Notes/Report: Influenza Screen (in house) Reviewed date:07/31/2024 10:57:24 AM Interpretation:neg Performing Lab: Notes/Report: neg results neg Rapid Strep- Inhouse Reviewed date:07/31/2024 10:57:24 AM Interpretation:neg Performing Lab: Notes/Report: neg strep test neg CBC Fingerstick (in house) Reviewed date:07/31/2024 10:57:24 AM Interpretation: Performing Lab: Notes/Report: wbc 6.7 3.5 - 10 lym 27.8 15 - 50 mid 6.2 2 - 15 gran 66.0 35 - 80 rbc 4.87 3.5 - 5.5 hgb 14.6 11.5 - 16.5 hct 45.2 35 - 55 mcv 92.7 75 - 100 mch 30.1 25 - 35 mchc 32.4 31 - 38 plat 159 100 - 400 Covid test (in house) Reviewed date:07/31/2024 10:57:24 AM Interpretation:neg Performing Lab: Notes/Report: neg Result: neg Influenza Screen (in house) Reviewed date:10/16/2024 11:43:21 AM Interpretation:Negative Performing Lab: Notes/Report: Negative results Negative CBC Fingerstick (in house) Reviewed date:10/16/2024 11:43:08 AM Interpretation: Performing Lab: Notes/Report: wbc 4.3 3.5 - 10 lym 20.4 15 - 50 mid 4.7 2 - 15 gran 74.9 35 - 80 rbc 4.58 3.5 - 5.5 hgb 13.6 11.5 - 16.5 hct 40.8 35 - 55 mcv 89.1 75 - 100 mch 29.8 25 - 35 mchc 33.4 31 - 38 plat 175 100 - 400 Covid test (in house) Reviewed date:10/16/2024 11:42:54 AM Interpretation:Negative Performing Lab: Notes/Report: Negative Result: Negative M-Miscellaneous Test Reviewed date:08/06/2024 11:26:20 AM Interpretation: Performing Lab: Notes/Report: MISCT SCANNED IMAGE CBC Fingerstick (in house) Reviewed date:06/19/2024 04:22:04 PM Interpretation: Performing Lab: Notes/Report: wbc 6.2 3.5 - 10 lym 22.2 15 - 50 mid 5.2 2 - 15 gran 72.6 35 - 80 rbc 4.22 3.5 - 5.5 hgb 12.9 11.5 - 16.5 hct 39.6 35 - 55 mcv 93.7 75 - 100 mch 30.5 25 - 35 mchc 32.6 31 - 38 plat 172 100 - 400 Medications Medication SIG (Take, Route, Frequency, Duration) Notes Start Date End Date Status hydroCHLOROthiazide 25 MG 1 tablet in th e morning Orally Once a day; Duration: 30 day(s) Active Rizatriptan [...] tab(s) sublingua lly once a day Active Levothyroxine Sodium 100 MCG 1 tablet in the morning on an empty stomach Orally Once a day; Duration: 90 days Active POTASSIUM BENZOATE, 99732 G Active Cephalexin 500 MG 1 tablet Orally tw e a day; Duration: 10 days Active MAGNESIUM ACETATE, 500 G Active Vitamin D3 125 MCG (5000 UT) 1 cap(s) or ally once a day 11/11/2015 Active Sertraline HCl 100 MG 1 tab(s) orally on ce a day; Duration: 90 days Active Rosuvastatin Calcium 20 MG 1 tablet Oral ly Once a day; Duration: 90 days 02/28/2025 Active Cyclobenzaprine HCl 5 MG 1 tab(s) Orally three times a day as needed 02/22/2025 Active Gemtesa 75 MG 1 tablet Orally Once a day 08/13/2024 Active Nabumetone 750 MG 2 tab(s) orally once a day; Duration: 30 day(s) Active Immunizations Vaccine Route Administration Date Status Comme nts COVID 19 Moderna Unknown 10/22/2020 Administered COVID 19 Moderna Unknown 11/19/2020 Administered COVID 19 Moderna Unknown 09/01/2021 Administered Hepatitis A (adult) Unknown 06/21/2018 Administered Shingrix IM Intramuscular 07/16/2022 Administered Tetanus Tdap-Adacel (over 7yrs) IM Intramuscular 07/16/2022 Administered Problems Problem Type SNOMED Code ICD Code Onset Dates Problem Status W/U Status Risk Notes Problem Overactive bladder (913762129) Overactive bladder (N32.81) Active confirmed Problem Vitamin D deficiency (02900296) Vitamin D deficiency (E55.9) Active confirmed Problem Essential hypertension (90182586) Essential hypertension (I10) Active confirmed Problem Seasonal allergy (459563893) Seasonal allergies (J30.2) Active confirmed Problem Overactive urinary bladder (disorder) (192454416) OAB (overactive bladder) (N32.81) Active confirmed Problem Chronic pain (58390097) Other chronic pain (G89.29) Active confirmed Problem Supraventricular tachycardia (3183331) Supraventricular tachycardia (I47.1) Active confirmed Problem Depressive disorder (63840817) Depressive disorder (F32.9) Active confirmed Problem Restless legs (80431957) Restless leg (G25.81) Active confirmed Problem Gastroesophageal reflux disease without esophagitis (349967232) Gastroesophageal reflux disease without esophagitis (K21.9) Active confirmed Problem Acquired hypothyroidism (848613441) Acquired hypothyroidism (E03.9) Active confirmed Problem Inflammatory and toxic neuropathy (777565308) Peripheral polyneuropathy (G62.9) Active confirmed Problem History of cholecystectomy (807495627) Status post cholecystectomy (Z90.49) Active confirmed Problem Primary osteoarthritis (248398311) Primary osteoarthritis involving multiple joints (M15.0) Active confirmed Problem Migraine (42405312) Migraine wit hout status migrainosus, not intractable, unspecified migraine type (G43.909) Active confirmed Problem Hyperlipidaemia (44153792) Hyperlipidemia, unspecified hyperlipidemia type (E78.5) Active confirmed Problem Migraine (39632083) Nonintractab le chronic migraine (G43.909) Active confirmed Problem Pure hypercholesterolemia (982959710) Pure hypercholesterolemia (E78.00) Active confirmed Problem Mixed incontinence (379772506) Mixed stress and urge urinary incontinence (N39.46) Active confirmed Problem C-reactive protein abnormal (430601597) CRP elevated (R79.82) Active confirmed Problem Allergic rhinitis (08180808) Allergic rhinitis, unspecified seasonality, unspecified trigger (J30.9) Active confirmed Vital Signs Heart Rate 60 /min 05/01/2025 Blood pressure diastolic 84 mm Hg 05/01/2025 Height 69 in 05/01/2025 Blood pressure systolic 130 mm Hg 05/01/2025 Weight 221.6 lbs 05/01/2025 BMI 32.72 kg/m2 05/01/2025 Encounters Encounter Location Date [facility] [address] [place], [place] [id number] 06/08/2024 Shannon Soto Soft tissue mass M79 .89 ; Family history of breast cancer gene mutation in first degree relative Z84.81 ; Vitamin B12 deficiency E53.8 ; Impaired fasting glucose R73.01 and Overactive bladder N32.81 [facility] [address] [facility] [address] [place], [place] [id number] 06/19/2024 R Lauro Giraldo Acute sinusitis J01. 90 [facility] [address] [facility] [address] [place], [place] [id number] 07/20/2024 Shannon Crowdy Poison ziyad L23.7 [facility] [address] [facility] [address] [place], [place] [id number] 07/31/2024 Araceli Johnson Bronchitis J40 [facility] [address] [facility] [address] [place], [place] [id number] 10/16/2024 Araceli Johnson Bronchitis J40 [facility] [address] [facility] [address] [place], [place] [id number] 02/20/2025 Dash [place] Mixed stress and urg e urinary incontinence N39.46 ; Dysuria R30.0 and Breast cancer screening by mammogram Z12.31 [facility] [address] [facility] [address] [place], [place] [id number] 02/22/2025 Dash [place] Essential hypertensi on I10 ; Vitamin D deficiency E55.9 ; Pure hypercholesterolemia E78.00 and Acquired hypothyroidism E03.9 [facility] [address] [place], [place] [id number] 04/03/2025 Shannon Crowdy Sebaceous cyst L72.3 and Local infection of the skin and subcutaneous tissue, unspecified L08.9 [facility] [address] [place], [place] [id number] 05/01/2025 Shannon Crowdy Sebaceous cyst L72.3 ; Physical exam Z00.00 and Local infection of the skin and subcutaneous tissue, unspecified L08.9 [facility] [address] [place], [place] [id number] 07/05/2024 Dash [place] Overactive bladder N 32.81 [facility] [address] [place] [id number] 07/05/2024 Dash [place] [facility] [address] [place] [id number] 07/22/2024 Shannon Crowdy [facility] [address] [place], [place] [id number] 08/13/2024 Dash [place] [facility] [address] [place] [id number] 08/14/2024 Dash [place] [facility] [address] [place] [id number] 08/27/2024 Dash [place] [facility] [address] [place] [id number] 02/22/2025 Dash [place] [facility] [address] [place] [id number] 02/25/2025 Dash [place] [facility] [address] [place] [id number] 04/22/2025 Dash [place] Assessments Encounter Date Diagnosis (ICD Code) Assessment Notes Treatment Notes Treatment Clinical Notes Section Notes 06/08/2024 Soft tissue mass ( D-10 - M79.89) 06/08/2024 Family history of br east cancer gene mutation in first degree relative (ICD-10 - Z84.81) 06/19/2024 Acute sinusitis (ICD -10 - J01.90) 07/05/2024 Overactive bladder (ICD-10 - N32.81) 07/20/2024 Poison ziyad (ICD-10 - L23.7) 07/31/2024 Bronchitis (ICD-10 - J40) discussed CXR; will do if does not improve; , fluids, rest, supportive measures for fever/symptom relief 10/16/2024 Bronchitis (ICD-10 - J40) fluids, rest, supportive measures for fever/symptom relief 02/20/2025 Dysuria (ICD-10 - R30.0) 02/20/2025 Mixed stress and urg e urinary incontinence (ICD-10 - N39.46) 02/22/2025 Vitamin D deficiency (ICD-10 - E55.9) 02/22/2025 Essential hypertensi on (ICD-10 - I10) 04/03/2025 Sebaceous cyst (ICD- 10 - L72.3) 04/03/2025 Local infection of t he skin and subcutaneous tissue, unspecified (ICD-10 - L08.9) 05/01/2025 Sebaceous cyst (ICD- 10 - L72.3) 05/01/2025 Physical exam (ICD-1 0 - Z00.00) 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 Pure hypercholesterolemia (ICD-10 - E78.00) 05/01/2025 Local infection of t he skin and subcutaneous tissue, unspecified (ICD-10 - L08.9) 06/08/2024 Vitamin B12 deficien cy (ICD-10 - E53.8) 02/20/2025 Breast cancer screen ing by mammogram (ICD-10 - Z12.31) 06/08/2024 Impaired fasting glu cose (ICD-10 - R73.01) 02/22/2025 Acquired hypothyroid ism (ICD-10 - E03.9) 06/08/2024 Overactive bladder (ICD-10 - N32.81) Plan Of Treatment Pending Test Test Name Order Date Ultrasound : Breast, right 07/14/2023 BRCA gene test 07/16/2022 Next Appt Details Provider Name:Dash Arango ry, 06/03/2025 09:45:00 AM, [address], [address], [place], [place], [id number], Insurance Providers Payer Name Payer Address Payer Phone Subscriber Number Group Number Insured Name Patient Relationship to Insured Coverage Start Date Coverage End Date [employer] [address] [place] [address] [id number] MULLER Self - patient is the insured Medications Administered Medication Instructions Date of Administration Dosage Notes B-12 12/01/2009 1 mL B-12 12/08/2009 1 mL B-12 08/31/2010 1 mL Dexamethasone 03/11/2012 4 mg Dexamethasone 09/24/2013 Dexamethasone 04/04/2023 1 mL Morphine 08/13/2009 4 mg phenergan 25 mg/ml 08/13/2009 25 mg Medical (General) History Medical History History ICD Code bulging disc Arthritis, Osteo, numerous joints, follo wed by [employer] migraine headache Vitamin B12 deficiency Sleep apnea, CPAP Hypertension Esophageal reflux Hypothyroidism hyperlipidemia overactive bladder Surgical History Surgery Date(Month/Year) Partial Hysterectomy RT Shoulder 06/24/2011 RT Shoulder 07/24/2011 hernia, bilateral inguinal 06/24/2023 bladder suspension, unspecified, 04/29/25 Hospitalization History Reason Date(Month/Year) Migraine- [place], [place] ER 01/2014
[2025-05-03 11:43] VITALS: BP 181/95; PULSE 59; RESP 18; TEMP 36.7; O2SAT 98; BMI 31.7
--- NOTE | 2025-05-03 11:55 | ED_ITS ---
Discharge Plan Disposition Patient Disposition: Home, Self-Care Prescriptions Prescriptions: New clindamycin HCl [Cleocin HCl] 300 mg capsule 300 mg PO QID 7 Days Qty: 28 0RF No Action cholecalciferol (vitamin D3) 1,000 unit capsule 1,000 unit PO HS triamcinolone acetonide 0.1 % ointment 1 applic topical TID Qty: 30 0RF methylprednisolone 4 mg tablets,dose pack See Rx Instructions PO PER PKG DIR Qty: 21 0RF Rx Instructions: PO PER PKG DIR nabumetone 750 mg tablet 750 mg PO DAILY Patient Comments: TAKE 1 TABLET BY MOUTH TWICE DAILY NEEDED FOR ARTHRITIS PAIN lisinopril 20 mg tablet 20 mg PO DAILY oxybutynin chloride 5 mg tablet extended release 24hr 5 mg PO DAILY levothyroxine 75 mcg tablet 75 mcg PO DAILY Patient Comments: TAKE 1 TABLET BY MOUTH ONCE DAILY bisoprolol fumarate 5 mg tablet 5 mg PO DAILY Patient Comments: TAKE 1 TABLET BY MOUTH ONCE DAILY prednisone 10 mg tablet 10 mg PO BID Qty: 6 0RF cyanocobalamin (vitamin B-12) 500 MCG tablet 500 mcg PO HS rizatriptan 10 mg tablet 10 mg PO DIRECTED Patient Comments: TAKE 1 TABLET BY MOUTH ONCE DAILY NEEDED sertraline 100 mg tablet 100 mg PO DAILY Patient Comments: TAKE 1 TABLET BY MOUTH ONCE DAILY guaifenesin [Mucinex] 600 mg tablet extended release 12hr 600 - 1,200 mg PO BIDP PRN (Reason: Congestion) Qty: 30 0RF Referrals Follow up/Referrals: Dash Walton MD [Primary Care Provider, Medical] - See instructions Activity Restrictions/Add. Instructions Additional Instructions/Restrictions: You are being prescribed an additional antibiotic to treat your infection. Take the clindamycin for 7 days as prescribed. You can continue to take the Keflex as well. You may develop some diarrhea with these antibiotics. If you develop any new or worsening symptoms, such as fever, worsening pain, swelling or redness, or if you become concerned for your health for any reason, return to the emergency department for evaluation. Clinical Impressions Clinical Impression: Cellulitis of back Instructions Patient Instructions: DI for Skin Abscess Print Language Print Language: [place] Discharge ED Provider: Elias Pelaez Adult [facility] General Chief complaint: Skin/Abscess/Foreign Body Stated complaint: Pain-Cysts upper back Time Seen by Provider: 05/03/25 11:35 Mode of Arrival: Ambulatory Source of Information: Patient Description of Symptoms (Recalled from ER Triage Doc. by RN): dealing with cyst for month that ruptured. been treated by pcp and dermatology. antibiotics for month. new cyst has appeared, states was told there was two. pcp out until july so cant assist, and no appointments available at dermatology. pain is a 9. area is red swollen. History of Present Illness HPI narrative: Jhoana Early is a 59F with a history of hypertension who presents to the emergency department for complaints of a cyst on her back. Patient states that approximately 1 month ago, she developed a cyst on her back and was seen by her computer training specialist and had an injection that broke up the cyst . She was put on a course of Keflex and completed that. She has not been on antibiotics for approximately 2 weeks and underwent bladder sling surgery on Tuesday. Since then, she has been on Keflex. She states that over the last week, she has had increased redness and another cyst pop up on her left upper back. She has not had any fevers with it. She cannot get in with her computer training specialist until the and was seen in urgent treatment center yesterday. Related Data Home Medications ?Medication ?Instructions ?Recorded ?Confirmed cholecalciferol (vitamin D3) 25 1,000 unit PO HS Suppl ement 10/28/17 04/23/25 mcg (1,000 unit) capsule cyanocobalamin (vitamin B-12) 500 500 mcg PO HS Supple ment 03/07/19 04/23/25 mcg tablet bisoprolol fumarate 5 mg tablet 5 mg PO DAILY 05/03/23 04/23/25 levothyroxine 75 mcg tablet 75 mcg PO DAILY 05/03/23 0 04/23/25 lisinopril 20 mg tablet 20 mg PO DAILY 05/03/2303/27 nabumetone 750 mg tablet 750 mg PO DAILY 05/03/23 oxybutynin chloride 5 mg 5 mg PO DAILY 05/03/2304/23 tablet,extended release 24 hr rizatriptan 10 mg tablet 10 mg PO DIRECTED 3 04/23/25 sertraline 100 mg tablet 100 mg PO DAILY 08/27/23 Previous Rx's ?Medication ?Instructions ?Recorded guaifenesin 600 mg tablet, 600 - 1,200 mg (1 - 2 x 600 mg) PO 11/06/23 extended release 12 hr (Mucinex) BIDP PRN Congestion # 30 tabs prednisone 10 mg tablet 10 mg PO BID #6 tabs 5 methylprednisolone 4 mg tablets in See Rx Instructions PO PER PKG DIR 03/19/25 a dose pack #21 tabs triamcinolone acetonide 0.1 % 1 applic topical TID #30 grams 03/19/25 topical ointment clindamycin HCl 300 mg capsule 300 mg PO QID 7 days #2 8 caps 05/03/25 (Cleocin HCl) Allergies Allergy/AdvReac Type Severity Reaction Status Date / Time Sulfa (Sulfonamide Allergy Mild I-HIVES Verified 04/23/25 09:08 Antibiotics) (SULFA (SULFONAMIDE ANTIBIOTICS)) [facility] Disclaimer: The information contained in this section may have been updated after the patient was seen, as this information can be updated by other users. Medical History Hypothyroidism Arthritis Hypertension Surgical History History of colonoscopy Social History Smoking Status: Never smoker alcohol intake: never substance use type: denies use current occupational status: other Travel in the last 8 weeks?: None household members: family housing: house current occupational exposures/hazards: No caffeine: Yes Have you lived/traveled outside [place] in past 30 days?: No Contact w/someone who lives/traveled outside [place] past 30 days?: No Exposure to someone with infectious disease in past 14 days?: No Do you have a fever (greater than 100.4 F or 38 C)?: No Have you tested positive for COVID-19?: No Exposed to someone with COVID-19 in past 14 days?: No Do you have a sore throat?: No Do you have a cough?: No Do you have any weakness?: No Do you have any diarrhea?: No Are you experiencing any unusual bleeding?: No Do you have any muscle aches/pain?: No Do you have any abdominal pain?: No Are you experiencing loss of taste or smell?: No Other Medical History Have you received the Flu Vaccine for this season: No Have you received the Pneumonia Vaccine: No ROS Obtained: Yes Systems reviewed as appropriate & no additional complaints except as documented Physical Exam General General appearance: alert and in no apparent distress Head Head exam: atraumatic Eye Eye exam: Present normal appearance ENT ENT exam: Present normal external ear exam Neck Neck exam: Present full ROM Chest Chest inspection: Present symmetric chest wall rise Respiratory Respiratory exam: Present normal lung sounds bilaterally; Absent respiratory distress Cardiovascular Cardiovascular exam: Present regular rate and normal rhythm Abdominal Exam Abdominal exam: Present soft; Absent tenderness or guarding Extremities Exam Extremities exam: Present normal inspection Back Exam Back exam: Present normal inspection Neurological Exam Neurological exam: Present alert and oriented X3 Psychiatric Psychiatric exam: Present normal affect Skin Skin exam: Present warm, dry and erythema Expanded Skin Exam Body image: 2 1. Erythema with mild induration Medical Decision Making Medical Records Screening: Per USPSTF and CDC recommendations, given the prevalence of disease in our region, it is our hospital?s policy to screen for HIV and viral Hepatitis for all patients aged 18 and over and those with ongoing risk factors. John Inquiry Pt receiving controlled substance: No Vital Signs: 05/03/25 11:43 Temperature 98.0 F Temperature Source Oral Pulse Rate [Right Brachial] 59 L Respiratory Rate 18 Blood Pressure [Right Arm] 181/95 H Blood Pressure Mean [Right Arm] 123 Blood Pressure Source [Right Arm] Automatic Cuff Blood Pressure Position [Right Arm] Sitting 02 Sat by Pulse Oximetry 98 Oxygen Delivery Method Room Air Orders (Tests/Meds): ORDERS Category Date Time Status POCUS Point of Care (ER Only) Stat Exams 05/03/25 11:40 Ordered HIV Combo Routine Lab 05/03/25 11:48 Ordered Hepatitis C Ab Qual. W/ RFX Routine Lab 05/03/25 11:48 Ordered Medical Decision Narrative: Jhoana Early is a 59F with a history of hypertension who presents to the emergency department for complaints of a cyst on her back. Patient states that approximately 1 month ago, she developed a cyst on her back and was seen by her computer training specialist and had an injection that broke up the cyst . She was put on a course of Keflex and completed that. She has not been on antibiotics for approximately 2 weeks and underwent bladder sling surgery on Tuesday. Since then, she has been on Keflex. She states that over the last week, she has had increased redness and another cyst pop up on her left upper back. She has not had any fevers with it. She cannot get in with her computer training specialist until the and was seen in urgent treatment center yesterday. On arrival, patient is hypertensive with blood pressure 181/95, heart rate within normal limits, afebrile with temperature 98 ?F. Maintaining appropriate oxygen saturation on room air. Physical exam, as stated above, revealed an overall well-appearing female in no distress. She has an area of erythema in her left upper back near the shoulder blade with 2 areas of mild induration within it. It is tender. The remainder of her physical exam is grossly unremarkable. Differential diagnosis includes, but is not limited to: Cellulitis, abscess, dermoid cyst, among others. The most morbid conditions were considered and workup was based on these. [id number] soft tissue ultrasound was performed. There does appear to be some fluid within the soft tissues in this area with cobblestoning, however nothing that is well-circumscribed or significant enough to drain. See procedure note for details. Is felt the patient likely has cellulitis or a phlegmon/developing abscess in this area. She notes that she is currently taking Keflex since her surgery and has been on it for 2 days. Given that it has not improved with Keflex previously, this could represent MRSA I would benefit from broader coverage. Patient states that she has an allergy to sulfa, will prescribe clindamycin at this time. I did instruct her to follow-up with her primary care physician as well as computer training specialist given that this has been a recurring issue. I gave her strict return precautions, to include worsening pain, swelling, redness or fever. I did encourage her to take Tylenol and ibuprofen to help with pain. All questions were answered. She demonstrated understanding and was in agreement this plan. She was then discharged from the emergency department in stable condition. Procedures Limited Ultrasound Interpretation:: Limited MSK/soft tissue ultrasound Indication: Soft tissue swelling and redness Identified structures: Location: Right upper back Findings: -Cellulitis due to cobblestoning, however not a significant enough or circumscribed fluid to consider drainage Impression: -Cellulitis of soft tissue Images were saved to permanent archive The study was technically adequate Soft Tissue CPT Codes: CPT Upper Back: 96545-23 This study was performed by me, and I personally interpreted all images/videos. Based on my clinical judgement, these images were adequate and did not necessitate further imaging. Critical Care Critical Care Time Critical Care Time: No
[2025-05-03 12:04] VITALS: BP 155/84; PULSE 60; RESP 18; TEMP 36.6; O2SAT 98
== END 2025-05-03 12:05 | disposition home or self-care (01) ==
PROVIDERS: Emergency Provider Student in an Organized Health Care Education/Training Program; PCP Family Medicine
DX: L03.312 Cellulitis of back [any part except buttock and flank] (principal)
CPT/HCPCS: 99284